=== PATIENT | female | born 1965 | race Caucasian/White ===

== ENCOUNTER → 2017-08-30 | Outpatient (CLI) | payer MEDICARE, SELFPAY | PROVIDERS: Visit Provider Anesthesiology | DX: M54.2 Cervicalgia (principal); M54.6 Pain in thoracic spine; M54.5 Low back pain | CPT/HCPCS: 72125; 72128; 72131 ==

== ENCOUNTER 2017-09-09 07:44 | Day surgery (SDC) | payer MEDICARE, SELFPAY ==
[2017-09-09] VITALS (9 sets, daily range): BP systolic 132–160; BP diastolic 78–101; PULSE 73–91; RESP 18–20; TEMP 36.3–36.8; O2SAT 95–97; BMI 41.8
--- NOTE | 2017-09-09 09:33 | HMH.PMPROC ---
- Procedure Date: 09/09/17 Time: 09:33 Anesthesiologist:: Adrian Mayfield MD Complications:: None Pre-procedure Diagnosis:: Degenerative disc disease of lumbar spine with lumbar radiculopathy symptoms Degenerative disc disease of cervical spinal cervical radiculopathy symptoms Post-procedure Diagnosis:: Same Indications for Procedure:: This patient is a pleasant 52-year-old white female who we are seeing for low back pain with radiation down her right leg and into her right thigh. She has failed all conservative therapy including injections, physical therapy and oral medications. She was previously treated by Dr. Riddle with injections. She has transferred care to us as it is closer to home. She has a successful neuropsychological evaluation. She has failed all conservative therapy. We have talked to her about intrathecal therapy. I have answered all questions and explained the risks and benefits. She is been off of oral narcotics for couple months. She presents for intrathecal pump trial today. Procedure Details:: Pain pump trial Informed consent was obtained and the risk and benefits of the procedure was explained to the patient. The patient was taken to the procedure room and placed prone on the procedure table. Patient was prepped and draped in sterile fashion. C-arm fluoroscopy was used to view the lumbar spine. The skin and subcutaneous tissues were anesthetized using lidocaine. I placed a 18-gauge spinal needle into the L4-5 interspace and advanced until clear CSF was obtained. After this intrathecal catheter was inserted and advanced very easily to the T10 vertebral body. The needle was withdrawn. We were able to freely withdraw clear CSF through the catheter. The catheter was secured in place and the patient was taken to recovery in stable condition. Patient tolerated the procedure well with no complications. After obtaining one set of vitals patient was bolused with 25 mcg of intrathecal fentanyl single shot. We reevaluated the patient after 30 minutes to 1 hour. She was also reassessed by physical therapy. Patient reported 60-70% relief in pain symptoms. She is also much more active. She had good relief of her low back pain. She did still have some neck pain however. She wants to proceed with permanent placement. Intrathecal catheter was removed intact Band-Aid was placed. The patient was discharged home neurologically intact and with good relief of pain symptoms. She was also reevaluated by physical therapy with significant improvement in flexion and extension. Pain score down to a 4 out of 10. Plan and Disposition:: We will follow-up with this patient next week. We will reevaluate her symptoms and talk about permanent placement of intrathecal pain pump.
--- NOTE | 2017-09-09 09:58 | PC.NURSE ---
pt dosed per Dr. Mayfield at 0951 for pain pump
--- NOTE | 2017-09-09 10:56 | PC.NURSE ---
PHYSICAL THERAPY AT BEDSIDE FOR ONE HOUR POST EVAL AFTER MEDICATION DOSING
--- NOTE | 2017-09-09 11:10 | PC.NURSE ---
AT BEDSIDE TO EVALUATE PT POST 1 HOUR DOSING, PT IN STABLE CONDITION. BENADRYL GIVEN FOR ITCHING, PT STATES ITCHING HAS DECREASED AND PAIN IS GETTING BETTER. DENIES ANY FURTHER NEEDS AT THIS TIME
--- NOTE | 2017-09-09 11:38 | PC.NURSE ---
EPIDURAL CATHETER REMOVED PER Karla MUÑOZ RN PER DR. BLANK REQUEST. SITE C/D/I, BANDAID APPLIED. VSS, FAMILY AT BEDSIDE FOR DISCHARGE
== END 2017-09-09 11:30 | disposition home or self-care (01) ==
LOC: SC.PAINP 07:47
PROVIDERS: Family Provider Family Medicine Geriatric Medicine; PCP Family Medicine Geriatric Medicine; Visit Provider Anesthesiology
DX: M51.16 Intervertebral disc disorders with radiculopathy, lumbar region (principal); M50.10 Cervical disc disorder with radiculopathy, unspecified cervical region
CPT/HCPCS: 62350

== ENCOUNTER → 2017-09-26 08:34 | Outpatient (POV) | payer MEDICARE, SELFPAY ==
[2017-09-26 09:25] VITALS: BP 158/78; PULSE 80; RESP 20; TEMP 36.7; O2SAT 93; BMI 92.2
--- NOTE | 2017-09-26 09:44 | HMH.PAINSOAP ---
[facility] Pain Management SOAP Note Subjective:: This patient is a pleasant 52-year-old white female who we are seeing for low back pain and neck pain with previous ACDF and degenerative disc disease of lumbar spine with lumbar radiculopathy symptoms. She underwent intrathecal pump trial which did not give her adequate pain relief. This was unsuccessful pump trial. She did get temporary relief however she was still having some increasing neck pain and some significant low back pain. She may have only been 60% better in her low back but still had significant neck pain. She has not had recent imaging. We will get an MRI of the cervical spine, thoracic spine and lumbar spine for neck pain, mid back pain and low back pain with radicular symptoms. We will also start her on Percocet 5 mg 1 tablet 3 times a day. Her Chandra has been appropriate. We will get a urine drug screen today. Objective:: Heart and oriented ?3 in no acute distress. Tenderness overlines Manny and lumbar spine. Motor strength of the upper and lower extremities is 5/5. There is no gross sensory deficit. Assessment:: Postlaminectomy syndrome of the cervical spine with ACDF of the cervical spine and degenerative disc disease of lumbar spine with lumbar radiculopathy symptoms. Plan:: We will get an MRI of the cervical spine, thoracic spine and lumbar spine for neck pain, mid back pain and low back pain with radicular symptoms. We will also start her on Percocet 5 mg 1 tablet 3 times a day. Her Chandra has been appropriate. We will get a urine drug screen today.
[2017-09-26 11:56] LABS: Amphetamine/Metha Screen,Urine Negative ng/mL (<1000); Barbiturates Screen,Urine Negative ng/mL (<200); Benzodiazepines Screen,Urine Negative ng/mL (200); Cannabinoid Screen,Urine Negative ng/mL (<50); Cocaine Screen,Urine Negative ng/g (<300); Methadone Screen,Urine Negative ng/mL (<300); Opiate Screen,Urine Negative ng/mL (<300); Phencyclidine Screen,Urine Negative ng/mL (<25)
[2017-10-04 10:55] LABS: Opiates Negative (Cutoff=100)
== END ==
PROVIDERS: Family Provider Family Medicine Geriatric Medicine; PCP Family Medicine Geriatric Medicine; Visit Provider Anesthesiology
DX: M96.1 Postlaminectomy syndrome, not elsewhere classified (principal); Z79.899 Other long term (current) drug therapy
CPT/HCPCS: 80305; 80361; 99212; G0480

== ENCOUNTER → 2017-10-25 10:33 | Outpatient (POV) | payer MEDICARE, SELFPAY ==
[2017-10-25 10:45] VITALS: BP 198/94; PULSE 91; RESP 20; TEMP 36.1; O2SAT 95; BMI 43.2
--- NOTE | 2017-10-25 12:21 | HMH.PAINSOAP ---
[facility] Pain Management SOAP Note Subjective:: She is a pleasant 52-year-old white female who presents today to discuss her pain. Patient has had a previous previous ACDF of the neck. Patient is having pain all the way from her neck to her back radiating down into her legs. Patient is seen Dr. Stewart in the past and had two stimulators. Most recently had a intrathecal pain pump trial which she stated did not give her much relief. Patient has been on medication in the past she states that this does not help either she states that she does not want to be on medication. Patient states that her activity is limited at home she just walks from her bed to her chair. Patient also states that she does not have much water intake but she eats a bag of ice every day. Patient states she has not been to her PCP for routine labs in a while. Patient does have thyroid problems as well but her levels have been monitored. Had physical therapy in the past however she has never tried hydrotherapy. Patient has also tried and failed injective therapies. ROS General: no recent weight change, no fever Respiratory: no cough, no shortness of air, no recurring pulmonary infections Cardiovascular/Peripheral Vascular: No chest pain, No palpitations, no edema, no shortness of breath. Gastrointestinal: no incontinence, normal bowel movements reported Genitourinary: no incontinence Musculoskeletal: Neck pain, thoracic pain, low back pain, leg Psychiatric: normal mood/ affect Neurological: Intermittent weakness in extremities., [denies balance issues] Objective:: Physical Exam General: Alert and oriented x3, no acute distress, pleasant and cooperative, morbidly obese Lungs: Resps E/U, Symmetrical chest expansion, Musculoskeletal: Flexion and extension of lumbar, thoracic, and cervical spine somewhat guarded secondary to pain, deep tendon reflexes normal, strength in upper and lower extremities [5/5], [abnormal gait noted] Neurological: speech clear, location manager equal, no gross sensory deficits Assessment:: Degenerative disc disease of the cervical spine, degenerative disc disease of the thoracic spine, generative disc disease of the lumbar spine, radiculopathy, cervical radiculopathy Plan:: The patient and I had a long discussion about taking a more holistic approach to her pain. We discussed the need for her to go to her primary care provider. I would like her to get some routine blood work I have concerns about her being potentially anemic, her thyroid levels not being well controlled, and her vitamin levels as well. I talked to the patient about the importance of movement. We discussed hydrotherapy as an option I will order this. If she cannot get approved through her insurance for hydrotherapy I discussed that she needs to be a lot walking at least 5 minutes a day several times a day.. Also discussed nutritional consult with the patient. I told the patient we would not be increasing her Percocet today. I will increase her gabapentin from 300 mg 1 p.o. 3 times daily to 600 mg 1 p.o. 3 times daily patient states she is not having any side effects from any of the medications. I will also call her in Flexeril 10 mg [address] Mayfield is reviewed her chart and agrees with my plan of care. Patient's SUZETTE #[id number] reviewed and appropriate. She will go for urine drug screen today. She has been appropriate in the past we will continue to monitor this. I will see her back in a month to discuss what her primary care has found in her blood work. Patient has been prescribed a controlled substance after being counseled on the medication, medication safety, and possible side effects. SUZETTE report has been obtained and reviewed prior to prescription and found to be appropriate. Opioid contract was reviewed and signed by the patient, and that they have agreed to all of the terms set forth by our compliance program. This note was dictated using
--- NOTE | 2017-10-25 12:28 | P.CONS_ITS ---
[facility] Pain Management SOAP Note Subjective:: She is a pleasant 52-year-old white female who presents today to discuss her pain. Patient has had a previous previous ACDF of the neck. Patient is having pain all the way from her neck to her back radiating down into her legs. Patient is seen Dr. Stewart in the past and had two stimulators. Most recently had a intrathecal pain pump trial which she stated did not give her much relief. Patient has been on medication in the past she states that this does not help either she states that she does not want to be on medication. Patient states that her activity is limited at home she just walks from her bed to her chair. Patient also states that she does not have much water intake but she eats a bag of ice every day. Patient states she has not been to her PCP for routine labs in a while. Patient does have thyroid problems as well but her levels have been monitored. Had physical therapy in the past however she has never tried hydrotherapy. Patient has also tried and failed injective therapies. ROS General: no recent weight change, no fever Respiratory: no cough, no shortness of air, no recurring pulmonary infections Cardiovascular/Peripheral Vascular: No chest pain, No palpitations, no edema, no shortness of breath. Gastrointestinal: no incontinence, normal bowel movements reported Genitourinary: no incontinence Musculoskeletal: Neck pain, thoracic pain, low back pain, leg Psychiatric: normal mood/ affect Neurological: Intermittent weakness in extremities., [denies balance issues] Objective:: Physical Exam General: Alert and oriented x3, no acute distress, pleasant and cooperative, morbidly obese Lungs: Resps E/U, Symmetrical chest expansion, Musculoskeletal: Flexion and extension of lumbar, thoracic, and cervical spine somewhat guarded secondary to pain, deep tendon reflexes normal, strength in upper and lower extremities [5/5], [abnormal gait noted] Neurological: speech clear, capacitor repairer equal, no gross sensory deficits Assessment:: Degenerative disc disease of the cervical spine, degenerative disc disease of the thoracic spine, generative disc disease of the lumbar spine, radiculopathy, cervical radiculopathy Plan:: The patient and I had a long discussion about taking a more holistic approach to her pain. We discussed the need for her to go to her primary care provider. I would like her to get some routine blood work I have concerns about her being potentially anemic, her thyroid levels not being well controlled, and her vitamin levels as well. I talked to the patient about the importance of movement. We discussed hydrotherapy as an option I will order this. If she cannot get approved through her insurance for hydrotherapy I discussed that she needs to be a lot walking at least 5 minutes a day several times a day.. Also discussed nutritional consult with the patient. I told the patient we would not be increasing her Percocet today. I will increase her gabapentin from 300 mg 1 p.o. 3 times daily to 600 mg 1 p.o. 3 times daily patient states she is not having any side effects from any of the medications. I will also call her in Flexeril 10 mg [address] Mayfield is reviewed her chart and agrees with my plan of care. Patient's SUZETTE #[id number] reviewed and appropriate. She will go for urine drug screen today. She has been appropriate in the past we will continue to monitor this. I will see her back in a month to discuss what her primary care has found in her blood work. Patient has been prescribed a controlled substance after being counseled on the medication, medication safety, and
[2017-10-25 13:02] LABS: Amphetamine/Metha Screen,Urine Negative ng/mL (<1000); Barbiturates Screen,Urine Negative ng/mL (<200); Benzodiazepines Screen,Urine Negative ng/mL (200); Cannabinoid Screen,Urine Negative ng/mL (<50); Cocaine Screen,Urine Negative ng/g (<300); Methadone Screen,Urine Negative ng/mL (<300); Opiate Screen,Urine Positive ng/mL (<300); Phencyclidine Screen,Urine Negative ng/mL (<25)
--- NOTE | 2017-10-26 09:35 | PC.PHONENOTE ---
10/25/17-called in Rx for Gabapentin 600mg TID with 2 refills and Flexeril 10mg TID with 2 refills to pt pharmacy per provider order.
[2017-10-31 13:09] LABS: Oxycodone (GC/MS) 2100 ng/mL (Cutoff=100)
[2017-11-01 06:27] LABS: Opiates Negative (Cutoff=100); Oxymorphone (GC/MS) 1410 ng/mL (Cutoff=100)
== END ==
PROVIDERS: Family Provider Family Medicine Geriatric Medicine; PCP Family Medicine Geriatric Medicine; Visit Provider Clinical Nurse Specialist Family Health
DX: M54.16 Radiculopathy, lumbar region (principal); M54.14 Radiculopathy, thoracic region; M54.12 Radiculopathy, cervical region; Z79.899 Other long term (current) drug therapy
CPT/HCPCS: 80305; 80361; 80365; 99212; G0480

== ENCOUNTER → 2017-11-21 08:46 | Outpatient (POV) | payer MEDICARE, SELFPAY ==
[2017-11-21 09:25] VITALS: BP 180/87; PULSE 95; RESP 24; O2SAT 96; BMI 43.2
--- NOTE | 2017-11-21 10:23 | HMH.PAINSOAP ---
[facility] Pain Management SOAP Note Subjective:: This patient is a pleasant 52-year-old white female who we are treating for neck pain with previous ACDF, mid back pain and degenerative disc disease of lumbar spine with lumbar radiculopathy symptoms. She had an intrathecal fentanyl trial which gave her some relief of her low back pain however she did not get much relief of her neck pain or mid back pain. She is also had previous spinal cord stimulator which had a fractured lead and she did not give any long-term benefit from this. We recently saw her and recommended that she go to her primary care provider to get some labs. She does have a thyroid abnormality and vitamin D is very low according to her recent labs evaluation. She is to follow-up with Dr. felciiano next week. Currently she is on gabapentin 600 mg 3 times a day, Percocet 5 mg 3 times a day and Flexeril 10 mg 3 times a day. She is doing okay on these medications. Her Chandra and urine drug screen are all appropriate. Kaspar #[id number]. I have talked to her about other options including possibly using ziconotide intrathecally which may gave her relief of neck pain and low back pain. Ziconotide may have better spread through the intrathecal space and fentanyl. I believe she would be a good candidate for a ziconotide pump trial we will seek approval for this. Objective:: Alert and oriented ?3 in no acute distress. She does have an antalgic gait. Motor strength of the lower extremities is 5/5. There is no gross sensory deficit. She does have tenderness over the cervical spine and tenderness over lower lumbar spine. Decreased range of motion of cervical spine and lumbar spine Assessment:: Degenerative disc disease of the cervical spine with previous ACDF and cervical radiculopathy symptoms. Degenerative disc disease of lumbar spine with lumbar radiculopathy symptoms. Plan:: This patient has failed all conservative therapy including spinal cord stimulation, previous surgery and injections. She got limited relief with intrathecal fentanyl trial. Fentanyl is lipophilic and did not spread to the cervical spine to give her any relief. I do believe she may be a candidate for intrathecal ziconotide. We will seek approval for intrathecal ziconotide pump trial to see if this will capture neck pain and low back pain. We will plan on intrathecal ziconotide pump trial at 5 mcg single shot when approved. We will also refill her Percocet 5 mg 1 tablet 3 times a day, Flexeril 10 mg 3 times a day and gabapentin 600 mg 3 times a day. We will give HER-2 months worth of prescriptions.
--- NOTE | 2017-11-21 10:26 | P.CONS_ITS ---
[facility] Pain Management SOAP Note Subjective:: This patient is a pleasant 52-year-old white female who we are treating for neck pain with previous ACDF, mid back pain and degenerative disc disease of lumbar spine with lumbar radiculopathy symptoms. She had an intrathecal fentanyl trial which gave her some relief of her low back pain however she did not get much relief of her neck pain or mid back pain. She is also had previous spinal cord stimulator which had a fractured lead and she did not give any long-term benefit from this. We recently saw her and recommended that she go to her primary care provider to get some labs. She does have a thyroid abnormality and vitamin D is very low according to her recent labs evaluation. She is to follow-up with Dr. feliciano next week. Currently she is on gabapentin 600 mg 3 times a day, Percocet 5 mg 3 times a day and Flexeril 10 mg 3 times a day. She is doing okay on these medications. Her Chandra and urine drug screen are all appropriate. Kaspar #[id number]. I have talked to her about other options including possibly using ziconotide intrathecally which may gave her relief of neck pain and low back pain. Ziconotide may have better spread through the intrathecal space and fentanyl. I believe she would be a good candidate for a ziconotide pump trial we will seek approval for this. Objective:: Alert and oriented ?3 in no acute distress. She does have an antalgic gait. Motor strength of the lower extremities is 5/5. There is no gross sensory deficit. She does have tenderness over the cervical spine and tenderness over lower lumbar spine. Decreased range of motion of cervical spine and lumbar spine Assessment:: Degenerative disc disease of the cervical spine with previous ACDF and cervical radiculopathy symptoms. Degenerative disc disease of lumbar spine with lumbar radiculopathy symptoms. Plan:: This patient has failed all conservative therapy including spinal cord stimulation, previous surgery and injections. She got limited relief with intrathecal fentanyl trial. Fentanyl is lipophilic and did not spread to the cervical spine to give her any relief. I do believe she may be a candidate for intrathecal ziconotide. We will seek approval for intrathecal ziconotide pump trial to see if this will capture neck pain and low back pain. We will plan on intrathecal ziconotide pump trial at 5 mcg single shot when approved. We will also refill her Percocet 5 mg 1 tablet 3 times a day, Flexeril 10 mg 3 times a day and gabapentin 600 mg 3 times a day. We will give HER-2 months worth of prescriptions.
[2017-11-21 10:27] LABS: Amphetamine/Metha Screen,Urine Negative ng/mL (<1000); Barbiturates Screen,Urine Negative ng/mL (<200); Benzodiazepines Screen,Urine Negative ng/mL (200); Cannabinoid Screen,Urine Negative ng/mL (<50); Cocaine Screen,Urine Negative ng/g (<300); Methadone Screen,Urine Negative ng/mL (<300); Opiate Screen,Urine Negative ng/mL (<300); Phencyclidine Screen,Urine Negative ng/mL (<25)
[2018-02-14 11:36] LABS: Opiates NEGATIVE
[2018-02-14 11:40] LABS: Oxycodone (GC/MS) 449
[2018-02-14 11:44] LABS: Oxymorphone (GC/MS) 585
== END ==
PROVIDERS: Family Provider Family Medicine Geriatric Medicine; PCP Family Medicine Geriatric Medicine; Visit Provider Anesthesiology
DX: M54.16 Radiculopathy, lumbar region (principal); M54.12 Radiculopathy, cervical region
CPT/HCPCS: 99212; 80305; 80361; 80365; G0480

== ENCOUNTER → 2018-01-10 10:56 | Outpatient (POV) | payer MEDICARE, SELFPAY ==
[2018-01-10 11:51] VITALS: BP 155/81; PULSE 84; RESP 20; O2SAT 99; BMI 42.4
--- NOTE | 2018-01-10 12:44 | HMH.PAINSOAP ---
[facility] Pain Management SOAP Note Subjective:: Patient is a pleasant 52-year-old white female who presents today for follow-up after recent denial of intrathecal pain pump trial with [employer]. Patient did have a intrathecal pain pump trial however she did not get much coverage of her neck and back pain that she would have liked. Patient's insurance denied trial with Prialt. Patient and I had a long discussion about neuro stimulation. Did have a neurostimulator from [employer] 5 years ago. Patient had a piece of the catheter break off. Patient and I had a long discussion about Nuvectra and the advances in stimulation. Patient would like to proceed with a trial for both cervical and lumbar pain coverage. Patient her pain a 6 out of 10 today. Patient is being managed on Percocet 5 mg 1 3 times daily. ROS General: no recent weight change, no fever, no sleep disturbances Respiratory: no cough, no shortness of air, no recurring pulmonary infections Cardiovascular/Peripheral Vascular: No chest pain, No palpitations, no edema, no shortness of breath. Gastrointestinal: no incontinence, normal bowel movements reported Genitourinary: no incontinence Musculoskeletal: Neck pain, bilateral arm pain, back pain, bilateral leg pain Psychiatric: normal mood/ affect, Neurological: [denies weakness in extremities], [denies balance issues] Objective:: Physical Exam General: Alert and oriented x3, no acute distress, pleasant and cooperative, [on room air] Lungs: Resps E/U, Symmetrical chest expansion, Eyes: PERRL Musculoskeletal: Flexion and extension of lumbar and cervical spine somewhat guarded secondary to pain, deep tendon reflexes normal, strength in upper and lower extremities [5/5], [abnormal gait noted] Neurological: speech clear, operational risk consultant equal, no gross sensory deficits Assessment:: Degenerative disc disease of the cervical spine with previous ACDF and cervical radiculopathy symptoms. Degenerative disc disease of lumbar spine with lumbar radiculopathy symptoms Plan:: We will ask for insurance approval for a Nuvectra spinal cord stimulator trial in order to get coverage of both the cervical and lumbar spine. Patient has tried and failed all conservative therapy including previous surgery, injections, intrathecal fentanyl trial, medications, physical therapy. I will follow-up with this patient after her trial. Patient is not on any anticoagulation therapy. This note was dictated using voice recognition software and may contain errors or omissions
--- NOTE | 2018-01-10 12:47 | P.CONS_ITS ---
[facility] Pain Management SOAP Note Subjective:: Patient is a pleasant 52-year-old white female who presents today for follow-up after recent denial of intrathecal pain pump trial with [employer]. Patient did have a intrathecal pain pump trial however she did not get much coverage of her neck and back pain that she would have liked. Patient's insurance denied trial with Prialt. Patient and I had a long discussion about neuro stimulation. Did have a neurostimulator from [employer] 5 years ago. Patient had a piece of the catheter break off. Patient and I had a long discussion about Nuvectra and the advances in stimulation. Patient would like to proceed with a trial for both cervical and lumbar pain coverage. Patient her pain a 6 out of 10 today. Patient is being managed on Percocet 5 mg 1 3 times daily. ROS General: no recent weight change, no fever, no sleep disturbances Respiratory: no cough, no shortness of air, no recurring pulmonary infections Cardiovascular/Peripheral Vascular: No chest pain, No palpitations, no edema, no shortness of breath. Gastrointestinal: no incontinence, normal bowel movements reported Genitourinary: no incontinence Musculoskeletal: Neck pain, bilateral arm pain, back pain, bilateral leg pain Psychiatric: normal mood/ affect, Neurological: [denies weakness in extremities], [denies balance issues] Objective:: Physical Exam General: Alert and oriented x3, no acute distress, pleasant and cooperative, [ on room air] Lungs: Resps E/U, Symmetrical chest expansion, Eyes: PERRL Musculoskeletal: Flexion and extension of lumbar and cervical spine somewhat guarded secondary to pain, deep tendon reflexes normal, strength in upper and lower extremities [5/5], [abnormal gait noted] Neurological: speech clear, chicken cutter equal, no gross sensory deficits Assessment:: Degenerative disc disease of the cervical spine with previous ACDF and cervical radiculopathy symptoms. Degenerative disc disease of lumbar spine with lumbar radiculopathy symptoms Plan:: We will ask for insurance approval for a Nuvectra spinal cord stimulator trial in order to get coverage of both the cervical and lumbar spine. Patient has tried and failed all conservative therapy including previous surgery, injections , intrathecal fentanyl trial, medications, physical therapy. I will follow-up with this patient after her trial. Patient is not on any anticoagulation therapy. This note was dictated using voice recognition software and may contain errors or omissions
== END ==
PROVIDERS: Family Provider Family Medicine Geriatric Medicine; PCP Family Medicine Geriatric Medicine; Visit Provider Clinical Nurse Specialist Family Health
DX: M54.12 Radiculopathy, cervical region (principal); M54.16 Radiculopathy, lumbar region
CPT/HCPCS: 99212

== ENCOUNTER → 2018-02-07 11:48 | Outpatient (POV) | payer MEDICARE, SELFPAY ==
[2018-02-07 12:02] VITALS: BP 152/87; PULSE 81; RESP 18; O2SAT 99; BMI 42.3
--- NOTE | 2018-02-07 12:19 | HMH.PAINSOAP ---
[facility] Pain Management SOAP Note Subjective:: Patient is a pleasant 52-year-old white female who presents today for a discussion about her neurostimulator trial on Tuesday. Patient wanted to discuss some question she had about the coverage and about the longevity of the therapy. Patient and I had a long discussion and I answered all of her questions. Patient states her pain is an 8 out of 10 today. Patient states that she was unable to picker tender her Percocet 5 mg 1 p.o. 3 times daily. Patient's SUZETTE #[id number] reviewed and appropriate. ROS General: no recent weight change, no fever, no sleep disturbances Respiratory: no cough, no shortness of air, no recurring pulmonary infections Cardiovascular/Peripheral Vascular: No chest pain, No palpitations, no edema, no shortness of breath. Gastrointestinal: no incontinence, normal bowel movements reported Genitourinary: no incontinence Musculoskeletal: Neck pain, bilateral arm pain, back pain, bilateral leg pain Psychiatric: normal mood/ affect Neurological: [denies weakness in extremities], [denies balance issues] Objective:: Physical Exam General: Alert and oriented x3, no acute distress, pleasant and cooperative, [on room air] Lungs: Resps E/U, Symmetrical chest expansion, Eyes: PERRL Musculoskeletal: Flexion and extension of cervical and lumbar spine somewhat guarded secondary to pain, deep tendon reflexes normal, strength in upper and lower extremities [5/5], [abnormal gait noted] Neurological: speech clear, senior biostatistician/group leader equal, no gross sensory deficits Assessment:: Degenerative disc disease of the cervical spine with previous ACDF and cervical radiculopathy symptoms. Degenerative disc disease of the lumbar spine with lumbar radiculopathy symptoms Plan:: The patient and I discussed her procedure on Tuesday. Patient is ready to continue. I will follow-up with her after her trial leads have been placed. This note was dictated using voice recognition software and may contain errors or omissions
[2018-02-07 18:52] LABS: Amphetamine/Metha Screen,Urine Negative ng/mL (<1000); Barbiturates Screen,Urine Negative ng/mL (<200); Benzodiazepines Screen,Urine Negative ng/mL (200); Cannabinoid Screen,Urine Negative ng/mL (<50); Cocaine Screen,Urine Negative ng/g (<300); Methadone Screen,Urine Negative ng/mL (<300); Opiate Screen,Urine Negative ng/mL (<300); Phencyclidine Screen,Urine Negative ng/mL (<25)
[2018-02-14 10:08] LABS: Opiates Negative (Cutoff=100)
== END ==
PROVIDERS: Family Provider Family Medicine Geriatric Medicine; PCP Family Medicine Geriatric Medicine; Visit Provider Clinical Nurse Specialist Family Health
DX: M54.12 Radiculopathy, cervical region (principal); Z79.891 Long term (current) use of opiate analgesic; M54.16 Radiculopathy, lumbar region
CPT/HCPCS: 80305; 80361; 80365; 99212; G0480

== ENCOUNTER → 2018-02-17 09:48 | Outpatient (POV) | payer MEDICARE, SELFPAY ==
[2018-02-17 09:56] VITALS: BP 132/65; PULSE 108; RESP 18; BMI 42.3
--- NOTE | 2018-02-17 11:40 | P.CONS_ITS ---
[facility] Pain Management SOAP Note Subjective:: This patient is a pleasant 49-year-old white female who we are treating for neck pain and low back pain with previous ACDF and postlaminectomy syndrome of the cervical spine with degenerative disc disease of lumbar spine and lumbar radiculopathy symptoms. This patient underwent a Nuvectra stimulator trial with a lead in the cervical region at C5-C6-C7 and a lead in the thoracic region at T7-T8-T9. Patient had good coverage of low back and legs. Patient also had good coverage of mid back however did not get adequate coverage of her neck. With difficulty of placing leads in the cervical region I do believe that surgical paddle lead placement would be ideal for permanent. Objective:: Alert and oriented ?3 no acute distress. Leads were pulled out intact with no signs of redness, skin irritation or infection. Patient does have an antalgic gait. She does have tenderness over the cervical spine and lumbar spine. Motor strength of the upper and lower extremities is 5/5. There is no gross sensory deficit. Assessment:: Degenerative disc disease of the cervical spine with previous ACDF and cervical radiculopathy symptoms. Degenerative disc disease of lumbar spine with lumbar radiculopathy symptoms. Plan:: We will refer her to Dr. Lane for surgical paddle lead placement of a Nuvectra stimulator system. One lead would be in the cervical region at C5-6. And one lead would be in the thoracic region at T8-T9.
--- NOTE | 2018-02-23 10:42 | PC.PHONENOTE ---
SPOKE WITH PT'S DAUGHTER, KRISTI. GAVE DR HUDSON DEL RIO'S ADDRESS AND PHONE NUMBER WITH APPOINTMENT FOR CONSULTATION FOR PADDLE LEADS AND STIM IMPLANT FOR March AT 1PM. INSTRUCTED HER TO HAVE [facility] CALL OFFICE IF SHE HAS ANY QUESTIONS. V/U
== END ==
PROVIDERS: Family Provider Family Medicine Geriatric Medicine; PCP Family Medicine Geriatric Medicine; Visit Provider Anesthesiology
DX: M54.12 Radiculopathy, cervical region (principal); M54.16 Radiculopathy, lumbar region
CPT/HCPCS: 99212

== ENCOUNTER → 2018-03-27 14:39 | Outpatient (POV) | payer MEDICARE, SELFPAY ==
[2018-03-27 15:07] VITALS: BP 155/79; PULSE 93; RESP 18; O2SAT 98; BMI 43.0
--- NOTE | 2018-03-27 15:18 | HMH.PAINSOAP ---
[facility] Pain Management SOAP Note Subjective:: This patient is a 52-year-old white female who presents today for follow-up. Patient had neurostimulator trial in which she reported good relief however when she is to Dr. Lane she stated she did not get any coverage of her neck as far as pain relief. Since her last visit patient has filled a narcotic prescription from an ear nose and throat doctor. Patient did not notify our office. Patient and I discussed that this is a breech of her contract. Patient Kaspar #[id number] reviewed. I discussed with the patient that we have exhausted our options along with this free to narcotic contract that we would only be giving her 1 month of medication and she will return to her primary care physician. Rates her pain a 6 out of 10 today. ROS General: no recent weight change, no fever, no sleep disturbances Respiratory: no cough, no shortness of air, no recurring pulmonary infections Cardiovascular/Peripheral Vascular: No chest pain, No palpitations, no edema, no shortness of breath. Gastrointestinal: no incontinence, normal bowel movements reported Genitourinary: no incontinence Musculoskeletal: Neck pain, back pain Psychiatric: normal mood/ affect Neurological: [denies weakness in extremities], [denies balance issues] Objective:: Physical Exam General: Morbidly obese, alert and oriented x3, no acute distress, pleasant and cooperative, [on room air] Lungs: Resps E/U, Symmetrical chest expansion, Eyes: PERRL Musculoskeletal: Flexion and extension of cervical and lumbar spine somewhat guarded secondary to pain, deep tendon reflexes normal, strength in upper and lower extremities [5/5], [abnormal gait noted] Neurological: speech clear, roll forming machine set up operator equal, no gross sensory deficits Assessment:: Disc disease of the lumbar spine with lumbar radiculopathy and degenerative disc disease of the cervical spine with cervical radiculopathy, previous ACDF of the cervical spine Plan:: We will give her 1 month of Percocet 5 mg 1 p.o. 3 times daily. This will be the last prescription she will get from this office. We have exhausted treatment options at this point and there is been a breech of her narcotic contract. Will send this note to her primary care physician. Dr. Mayfield has reviewed this chart and agrees with this plan of care. This note was dictated using voice recognition software and may contain errors or omissions
--- NOTE | 2018-03-27 15:22 | P.CONS_ITS ---
[facility] Pain Management SOAP Note Subjective:: This patient is a 52-year-old white female who presents today for follow-up. Patient had neurostimulator trial in which she reported good relief however when she is to Dr. Lane she stated she did not get any coverage of her neck as far as pain relief. Since her last visit patient has filled a narcotic prescription from an ear nose and throat doctor. Patient did not notify our office. Patient and I discussed that this is a breech of her contract. Patient Kaspar #[id number] reviewed. I discussed with the patient that we have exhausted our options along with this free to narcotic contract that we would only be giving her 1 month of medication and she will return to her primary care physician. Rates her pain a 6 out of 10 today. ROS General: no recent weight change, no fever, no sleep disturbances Respiratory: no cough, no shortness of air, no recurring pulmonary infections Cardiovascular/Peripheral Vascular: No chest pain, No palpitations, no edema, no shortness of breath. Gastrointestinal: no incontinence, normal bowel movements reported Genitourinary: no incontinence Musculoskeletal: Neck pain, back pain Psychiatric: normal mood/ affect Neurological: [denies weakness in extremities], [denies balance issues] Objective:: Physical Exam General: Morbidly obese, alert and oriented x3, no acute distress, pleasant and cooperative, [on room air] Lungs: Resps E/U, Symmetrical chest expansion, Eyes: PERRL Musculoskeletal: Flexion and extension of cervical and lumbar spine somewhat guarded secondary to pain, deep tendon reflexes normal, strength in upper and lower extremities [5/5], [abnormal gait noted] Neurological: speech clear, bag repairer equal, no gross sensory deficits Assessment:: Disc disease of the lumbar spine with lumbar radiculopathy and degenerative disc disease of the cervical spine with cervical radiculopathy, previous ACDF of the cervical spine Plan:: We will give her 1 month of Percocet 5 mg 1 p.o. 3 times daily. This will be the last prescription she will get from this office. We have exhausted treatment options at this point and there is been a breech of her narcotic contract. Will send this note to her primary care physician. Dr. Mayfield has reviewed this chart and agrees with this plan of care. This note was dictated using voice recognition software and may contain errors or omissions
== END ==
PROVIDERS: Family Provider Family Medicine Geriatric Medicine; PCP Family Medicine Geriatric Medicine; Visit Provider Clinical Nurse Specialist Family Health
DX: M54.16 Radiculopathy, lumbar region (principal)
CPT/HCPCS: 99212

== ENCOUNTER → 2018-08-11 11:39 | Outpatient (CLI) | payer MEDICARE, SELFPAY ==
[2018-08-11 13:57] LABS: Basophils # 0.1 K/mm3 (0-0.2); Basophils % 0.5 % (0.1-2.0); Eosinophils # 0.5 K/mm3 (0.0-0.4); Eosinophils % 3.7 % (0.1-12.0); Hematocrit 30.7 % (37.0-47.0); Hemoglobin 8.4 g/dL (12.2-16.2); Lymphocytes # 2.9 K/mm3 (0.7-4.5); Lymphocytes % 23.2 % (10-50); Mean Corpuscular HGB Conc 27.3 g/dL (31.8-35.4); Mean Corpuscular Hemoglobin 18.8 pg (27.0-31.2); Mean Corpuscular Volume 68.9 fl (81-99); Mean Platelet Volume 7.8 fl (7.4-10.4); Monocytes # 0.6 K/mm3 (0.1-1.0); Monocytes % 4.7 % (1.7-9.3); Neutrophils # 8.6 K/mm3 (1.8-7.8); Neutrophils % 67.9 % (37.0-80.0); Platelet Count 439 K/mm3 (142-424); Red Blood Count 4.45 M/mm3 (4.20-5.40); Red Cell Distribution Width 18.8 % (11.5-17.5); White Blood Count 12.7 K/mm3 (4.8-10.8)
[2018-08-11 14:25] LABS: Hemoglobin A1C 8.6 % (0.0-7.0)
[2018-08-11 14:46] LABS: Alanine Aminotransferase 50 U/L (12-78); Albumin Level 3.2 gm/dL (3.4-5.0); Albumin/Globulin Ratio 0.7 (1.1-1.8); Alkaline Phosphatase 168 U/L (46-116); Anion Gap 14.1 mEq/L (5-15); Aspartate Amino Transferase 60 U/L (15-37); Bilirubin,Total 0.3 mg/dL (0.2-1.0); Blood Urea Nitrogen 7 mg/dL (7-18); C-Reactive Protein 1.3 mg/L (0.0-0.9); Calcium 8.9 mg/dL (8.5-10.1); Carbon Dioxide 27 mmol/L (21.0-32.0); Chloride 94 mmol/L (98-107); Cholesterol 266 mg/dL (140-200); Creatinine,Serum 0.84 mg/dL (0.55-1.02); Estimated Glomerular Filt Rate 71 ml/min (>60); Ferritin 10 ng/mL (8-388); GFR (African American) 85 ML/MIN (>60); Globulin 4.8 gm/dl (1.3-3.2); Glucose 168 mg/dL (74-106); HDL Cholesterol 38 mg/dL (29-89); LDL Cholesterol 174 mg/dL (0-130); Potassium 4.1 mmoL/L (3.5-5.1); Sodium 131 mmol/L (136-145); Thyroid Stimulating Hormone 34.36 uIU/ml (0.358-3.740); Triglycerides 269 mg/dL (30-200); VLDL Cholesterol 54 mg/dL (0-40)
[2018-08-11 17:19] LABS: Erythrocyte Sedimentation Rate 79 mm/hr (0-30)
[2018-08-12 08:20] LABS: RA Latex Turbid. 10.9 IU/mL (0.0-13.9)
[2018-08-12 09:14] LABS: Iron 17 ug/dL (27-159); UIBC 526 ug/dL (131-425)
[2018-08-13 05:35] LABS: C-Peptide 7.1 ng/mL (1.1-4.4); Iron Saturation 3 % (15-55); Transferrin 437 mg/dL (200-370); Vitamin B12 606 pg/mL (232-1245); Vitamin D 25 Hydroxy 10.7 ng/mL (30.0-100.0)
[2018-08-13 11:42] LABS: Peripheral Smear Review Scanned Result
[2018-08-15 13:08] LABS: Antinuclear Antibodies, IFA Negative (.)
== END ==
PROVIDERS: PCP Physician Assistant; Visit Provider Physician Assistant
DX: D64.9 Anemia, unspecified (principal); E11.9 Type 2 diabetes mellitus without complications; E78.5 Hyperlipidemia, unspecified; I10 Essential (primary) hypertension; D50.9 Iron deficiency anemia, unspecified; E55.9 Vitamin D deficiency, unspecified; L40.9 Psoriasis, unspecified
CPT/HCPCS: 36415; 80053; 80061; 82607; 82652; 82728; 83036; 83540; 83550; 84443; 84466; 84681; 85025; 85060; 85651; 86038; 86140; 86431

== ENCOUNTER → 2019-05-29 09:18 | Outpatient (POV) | payer MEDICARE, SELFPAY ==
[2019-05-29 10:42] LABS: Basophils # 0.1 K/mm3 (0-0.2); Eosinophils # 0.3 K/mm3 (0.0-0.4); Eosinophils % 3.3 % (0.1-12.0); Hematocrit 48.5 % (37.0-47.0); Hemoglobin 15.5 g/dL (12.2-16.2); Lymphocytes # 2.1 K/mm3 (0.7-4.5); Lymphocytes % 24.3 % (10-50); Mean Corpuscular HGB Conc 31.9 g/dL (31.8-35.4); Mean Corpuscular Hemoglobin 30.5 pg (27.0-31.2); Mean Corpuscular Volume 95.5 fl (81-99); Mean Platelet Volume 8.6 fl (7.4-10.4); Monocytes # 0.4 K/mm3 (0.1-1.0); Monocytes % 4.4 % (1.7-9.3); Neutrophils # 5.8 K/mm3 (1.8-7.8); Neutrophils % 66.9 % (37.0-80.0); Platelet Count 278 K/mm3 (142-424); Red Blood Count 5.08 M/mm3 (4.20-5.40); Red Cell Distribution Width 14.7 % (11.5-17.5); White Blood Count 8.6 K/mm3 (4.8-10.8)
[2019-05-29 11:45] LABS: Alanine Aminotransferase 30 U/L (12-78); Albumin Level 3.4 gm/dL (3.4-5.0); Albumin/Globulin Ratio 0.8 (1.1-1.8); Alkaline Phosphatase 134 U/L (46-116); Anion Gap 15.5 mEq/L (5-15); Aspartate Amino Transferase 27 U/L (15-37); Bilirubin,Total 0.4 mg/dL (0.2-1.0); Blood Urea Nitrogen 7 mg/dL (7-18); Calcium 9.8 mg/dL (8.5-10.1); Carbon Dioxide 26 mmol/L (21.0-32.0); Chloride 103 mmol/L (98-107); Creatinine,Serum 0.63 mg/dL (0.55-1.02); Estimated Glomerular Filt Rate 98 ml/min (>60); GFR (African American) 119 ML/MIN (>60); Globulin 4.1 gm/dl (1.3-3.2); Glucose 143 mg/dL (74-106); Potassium 3.5 mmoL/L (3.5-5.1); Sodium 141 mmol/L (136-145); Total Protein,Serum 7.5 gm/dL (6.4-8.2)
[2019-05-30 07:18] LABS: Hep A Ab, IgM Negative (Negative); Hepatitis B Core Antibody IgM Negative (Negative); Hepatitis B Surface Antigen Negative (Negative)
[2019-05-30 10:50] LABS: Hepatitis C Antibody <0.1 s/co ratio (0.0-0.9)
[2019-06-02 13:48] LABS: QuantiFERON-TB Gold Plus Negative (Negative)
== END ==
PROVIDERS: PCP Dermatology; Visit Provider Dermatology
DX: L40.0 Psoriasis vulgaris (principal); Z79.899 Other long term (current) drug therapy; R10.9 Unspecified abdominal pain
CPT/HCPCS: 36415; 80053; 80074; 85025; 86480

== ENCOUNTER → 2019-10-16 08:27 | Outpatient (POV) | payer MEDICARE, SELFPAY | PROVIDERS: Visit Provider Dermatology | DX: Z00.00 Encounter for general adult medical examination without abnormal findings (principal) ==

== ENCOUNTER → 2019-10-30 11:28 | Outpatient (CLI) | payer MEDICARE, SELFPAY | PROVIDERS: Visit Provider Dermatology | DX: S61.0 Open wound of thumb without damage to nail (principal) | CPT/HCPCS: 87070; 87077; 87186; 87205 ==

== ENCOUNTER → 2020-03-11 12:56 | Outpatient (POV) | payer MEDICARE, SELFPAY | PROVIDERS: PCP Nurse Practitioner Family; Visit Provider Dermatology | DX: Z00.00 Encounter for general adult medical examination without abnormal findings (principal) ==

== ENCOUNTER → 2021-01-06 10:00 | Outpatient (CLI) | payer MEDICARE, SELFPAY ==
--- NOTE | 2021-01-06 10:03 | MM_ITS ---
PROCEDURE: MM DIG SCREENING MAMM BI W/CAD Digital Breast Tomosynthesis Included CLINICAL INDICATION: SCREENING COMPARISON: MG DMDBAV DIG MAMM-DX ALESSIA W/AVWS W/CAD from 04/18/2017 TECHNIQUE: Standard CC and MLO images and 3D Tomosynthesis was obtained. R2 CAD reviewed. FINDINGS: The breasts are composed of scattered fibroglandular tissue. No focal dominant mass lesions, suspicious calcification or architectural distortion is noted. Benign appearing calcifications are noted. Previously noted masslike lesions in the right breast are not visualized on the current study. Focal nodular appearing density in the right outer lower breast is again noted, demonstrates no significant interval change compared to the prior study. IMPRESSION: No suspicious findings benign findings.. BI-RAD Category: 2 Benign Finding(s) FOLLOW-UP: 1YR 1 Year Follow-up (A letter has been sent to the patient regarding results of the study.) Dictated by: Mya Beavers 01/12/2021 16:27 Mya Beavers in OV 01/12/2021 16:27
== END ==
PROVIDERS: PCP Nurse Practitioner Family; Visit Provider Nurse Practitioner Family
DX: Z12.31 Encounter for screening mammogram for malignant neoplasm of breast (principal)
CPT/HCPCS: 77063; 77067

== ENCOUNTER → 2021-05-19 10:07 | Outpatient (CLI) | payer MEDICARE, SELFPAY ==
[2021-05-19 11:02] LABS: Basophils # 0.1 K/mm3 (0-0.2); Eosinophils # 0.2 K/mm3 (0.0-0.4); Eosinophils % 2.6 % (0.1-12.0); Hematocrit 49.1 % (37.0-47.0); Hemoglobin 14.7 g/dL (12.2-16.2); Mean Corpuscular Hemoglobin 26.9 pg (27.0-31.2); Mean Corpuscular Volume 89.6 fl (81-99); Mean Platelet Volume 7.4 fl (7.4-10.4); Monocytes # 0.6 K/mm3 (0.1-1.0); Monocytes % 6.7 % (1.7-9.3); Neutrophils # 5.3 K/mm3 (1.8-7.8); Neutrophils % 57.6 % (37.0-80.0); Platelet Count 338 K/mm3 (142-424); Red Blood Count 5.48 M/mm3 (4.20-5.40); Red Cell Distribution Width 16.1 % (11.5-17.5); White Blood Count 9.2 K/mm3 (4.8-10.8)
[2021-05-19 12:16] LABS: Alanine Aminotransferase 16 U/L (12-78); Albumin Level 3.8 g/dl (3.5-5.0); Alkaline Phosphatase 127 U/L (38-126); Anion Gap 14.5 mEq/L (5-15); Aspartate Amino Transferase 28 U/L (14-36); Bilirubin,Total 0.2 mg/dl (0.2-1.3); Blood Urea Nitrogen 12 mg/dl (7-17); Carbon Dioxide 29 mmol/L (22.0-30.0); Chloride 102 mmol/L (98-107); Estimated Glomerular Filt Rate 74 ml/min (>60); GFR (African American) 90 ML/MIN (>60); Globulin 3.7 g/dL (1.3-3.2); Glucose 204 mg/dl (74-100); Potassium 4.5 mmoL/L (3.5-5.1); Sodium 141 mmol/L (136-145); Total Protein,Serum 7.5 g/dl (6.3-8.2)
== END ==
PROVIDERS: Visit Provider Dermatology
DX: L40.0 Psoriasis vulgaris (principal); Z79.899 Other long term (current) drug therapy
CPT/HCPCS: 36415; 80053; 85025

== ENCOUNTER → 2021-05-19 10:09 | Outpatient (POV) | payer MEDICARE, SELFPAY | PROVIDERS: Visit Provider Dermatology | DX: Z00.00 Encounter for general adult medical examination without abnormal findings (principal) ==

== ENCOUNTER → 2022-05-19 05:57 | Outpatient (CLI) | payer MEDICARE, SELFPAY ==
[2022-05-19 18:14] LABS: Basophils # 0.2 K/mm3 (0-0.2); Basophils % 2.4 % (0.1-2.0); Eosinophils # 0.3 K/mm3 (0.0-0.4); Eosinophils % 3.3 % (0.1-12.0); Hematocrit 50.9 % (37.0-47.0); Hemoglobin 15.8 g/dL (12.2-16.2); Mean Corpuscular Hemoglobin 31.3 pg (27.0-31.2); Mean Corpuscular Volume 100.9 fl (81-99); Monocytes # 0.7 K/mm3 (0.1-1.0); Monocytes % 8.4 % (1.7-9.3); Neutrophils # 5.1 K/mm3 (1.8-7.8); Neutrophils % 61.8 % (37.0-80.0); Platelet Count 326 K/mm3 (142-424); Red Blood Count 5.05 M/mm3 (4.20-5.40); Red Cell Distribution Width 15.8 % (11.5-17.5); White Blood Count 8.3 K/mm3 (4.8-10.8)
[2022-05-19 19:03] LABS: Hemoglobin A1C 9.7 % (4.0-6.0)
== END ==
PROVIDERS: PCP Family Medicine; Visit Provider Family Medicine
DX: E11.9 Type 2 diabetes mellitus without complications (principal); D50.9 Iron deficiency anemia, unspecified; Z79.84 Long term (current) use of oral hypoglycemic drugs
CPT/HCPCS: 83036; 84443; 85025

== ENCOUNTER → 2022-05-24 06:50 | Outpatient (CLI) | payer MEDICARE, SELFPAY | PROVIDERS: PCP Family Medicine; Visit Provider Family Medicine | DX: R05.9 Cough, unspecified (principal); Z20.822 Contact with and (suspected) exposure to COVID-19 | CPT/HCPCS: C9803; U0003; U0005 ==

== ENCOUNTER → 2022-05-25 09:13 | Outpatient (CLI) | payer MEDICARE, SELFPAY ==
--- NOTE | 2022-05-25 09:20 | XR_ITS ---
FINAL REPORT TECHNIQUE: Chest PA & Lateral CLINICAL HISTORY: cough, SOB FINDINGS: 2 views of the chest were performed. The heart size is normal. The mediastinum is within normal limits. There is no acute cardiopulmonary process. There are no pleural effusions. There is no pneumothorax. The bony thorax appears intact. IMPRESSION: No acute cardiopulmonary process. Reviewed, Interpreted and Dictated by Quincy Kerr MD Transcribed by Tommy Ontiveors Authenticated and [facility]
== END ==
PROVIDERS: PCP Family Medicine; Visit Provider Family Medicine
DX: J06.9 Acute upper respiratory infection, unspecified (principal)
CPT/HCPCS: 71046

== ENCOUNTER → 2022-07-16 09:50 | Outpatient (CLI) | payer MEDICARE, SELFPAY ==
[2022-07-16 16:34] LABS: Basophils # 0.2 K/mm3 (0-0.2); Basophils % 1.5 % (0.1-2.0); Eosinophils # 0.3 K/mm3 (0.0-0.4); Eosinophils % 2.5 % (0.1-12.0); Hematocrit 51.8 % (37.0-47.0); Lymphocytes % 27.4 % (10-50); Mean Corpuscular HGB Conc 30.9 g/dL (31.8-35.4); Mean Corpuscular Hemoglobin 30.5 pg (27.0-31.2); Mean Corpuscular Volume 98.7 fl (81-99); Mean Platelet Volume 8.9 fl (7.4-10.4); Monocytes # 0.7 K/mm3 (0.1-1.0); Monocytes % 6.1 % (1.7-9.3); Neutrophils # 6.8 K/mm3 (1.8-7.8); Neutrophils % 62.6 % (37.0-80.0); Platelet Count 395 K/mm3 (142-424); Red Blood Count 5.25 M/mm3 (4.20-5.40); Red Cell Distribution Width 14.4 % (11.5-17.5); White Blood Count 10.9 K/mm3 (4.8-10.8)
== END ==
PROVIDERS: PCP Nurse Practitioner Family; Visit Provider Nurse Practitioner Family
DX: M25.521 Pain in right elbow (principal)
CPT/HCPCS: 85025

== ENCOUNTER → 2022-08-03 08:34 | Outpatient (POV) | payer MEDICARE, SELFPAY | PROVIDERS: Visit Provider Dermatology | DX: Z00.00 Encounter for general adult medical examination without abnormal findings (principal) ==

== ENCOUNTER → 2022-08-03 09:47 | Outpatient (CLI) | payer MEDICARE, SELFPAY ==
[2022-08-03 10:21] LABS: Basophils # 0.2 K/mm3 (0-0.2); Basophils % 1.5 % (0.1-2.0); Eosinophils # 0.4 K/mm3 (0.0-0.4); Eosinophils % 2.9 % (0.1-12.0); Hemoglobin 16.7 g/dL (12.2-16.2); Lymphocytes # 3.6 K/mm3 (0.7-4.5); Lymphocytes % 26.6 % (10-50); Mean Corpuscular HGB Conc 30.3 g/dL (31.8-35.4); Mean Corpuscular Hemoglobin 30.2 pg (27.0-31.2); Mean Corpuscular Volume 99.7 fl (81-99); Mean Platelet Volume 8.1 fl (7.4-10.4); Monocytes # 0.7 K/mm3 (0.1-1.0); Monocytes % 5.2 % (1.7-9.3); Neutrophils # 8.7 K/mm3 (1.8-7.8); Neutrophils % 63.7 % (37.0-80.0); Platelet Count 355 K/mm3 (142-424); Red Blood Count 5.52 M/mm3 (4.20-5.40); Red Cell Distribution Width 14.5 % (11.5-17.5); White Blood Count 13.6 K/mm3 (4.8-10.8)
[2022-08-03 10:27] LABS: Chloride 102 mmol/L (98-107); Potassium 4.2 mmoL/L (3.5-5.1); Sodium 138 mmol/L (136-145)
[2022-08-03 10:30] LABS: Alanine Aminotransferase 41 U/L (12-78); Albumin/Globulin Ratio 1.1 (1.1-1.8); Alkaline Phosphatase 200 U/L (38-126); Anion Gap 10.2 mEq/L (5-15); Aspartate Amino Transferase 31 U/L (14-36); Blood Urea Nitrogen 11 mg/dl (7-17); Calcium 9.6 mg/dl (8.4-10.2); Carbon Dioxide 30 mmol/L (22.0-30.0); Estimated Glomerular Filt Rate 74 ml/min (>60); GFR (African American) 89 ML/MIN (>60); Globulin 3.5 g/dL (1.3-3.2); Glucose 157 mg/dl (74-100); Total Protein,Serum 7.5 g/dl (6.3-8.2)
[2022-08-03 10:31] LABS: Bilirubin,Total 0.1 mg/dl (0.2-1.3)
[2022-08-05 19:17] LABS: QuantiFERON-TB Gold Plus Negative (Negative)
== END ==
PROVIDERS: PCP Family Medicine; Visit Provider Dermatology
DX: L40.0 Psoriasis vulgaris (principal); Z79.899 Other long term (current) drug therapy
CPT/HCPCS: 36415; 80053; 85025; 86480

== ENCOUNTER 2022-09-17 07:25 | Emergency (ER) | payer MEDICARE, SELFPAY ==
[2022-09-17] VITALS (8 sets, daily range): BP systolic 115–141; BP diastolic 57–86; PULSE 66–75; RESP 18–19; TEMP 36.8; O2SAT 92–99; BMI 43.2
--- NOTE | 2022-09-17 07:49 | XR_ITS ---
FINAL REPORT CLINICAL HISTORY: fall FINDINGS: LEFT SHOULDER 3 views of the left shoulder were obtained. There is no acute fracture or dislocation. There is deformity of the proximal humerus, favor chronic fracture. Probable coracoid loose bodies are seen. Degenerative changes are noted of the acromioclavicular and glenohumeral joints. Soft tissues are unremarkable. IMPRESSION: No acute bony abnormality. Reviewed, Interpreted and Dictated by Chriss Wilson III, MD Transcribed by Trudy Birch Authenticated and . [facility]
--- NOTE | 2022-09-17 07:49 | XR_ITS ---
FINAL REPORT CLINICAL HISTORY: fall FINDINGS: LEFT 1ST DIGIT 3 views were obtained. There is no acute fracture or dislocation. Visualized joint spaces are normally aligned. Soft tissues are unremarkable. IMPRESSION: No acute bony abnormality. Reviewed, Interpreted and Dictated by Chriss Wilson III, MD Transcribed by Trudy Birch Authenticated and [facility]
--- NOTE | 2022-09-17 07:52 | HMH.EDFALL ---
Discharge Plan Disposition Patient Disposition: Home, Self-Care Condition: Fair Prescriptions Prescriptions: New hydrocodone-acetaminophen 5-325 mg tablet 1 tab PO Q8H PRN (Reason: pain) Qty: 7 0RF methocarbamol [Methocarbamol] 750 mg tablet 750 mg PO Q6 PRN (Reason: Muscle Spasm) Qty: 30 0RF No Action sucralfate 1 gram tablet 1 g PO TID magnesium oxide 400 mg magnesium capsule 400 mg PO DAILY Linzess 290 mcg capsule 290 mcg PO DAILY montelukast 10 mg tablet 10 mg PO DAILY vitamin B complex Capsule 1 cap PO DAILY ascorbic acid (vitamin C) [Vitamin C] 1,000 mg tablet 1 g PO DAILY coenzyme [id number] 100-100 mg-unit capsule PO DAILY pantoprazole 20 mg tablet,delayed release (DR/EC) 20 mg PO DAILY lisinopril 5 mg tablet 5 mg PO DAILY amitriptyline 100 mg tablet 100 mg PO DAILY Trelegy Ellipta 100-62.5-25 mcg blister with device 1 inh inhalation DAILY Humira Pen 40 mg/0.8 mL pen injector kit SQ albuterol sulfate 2.5 mg /3 mL (0.083 %) solution for nebulization 2.5 mg continuous nebulization Q6H PRN Botox 200 unit recon soln SQ Rx Instructions: every three months ondansetron 4 mg tablet,disintegrating 4 mg PO Q8H PRN (Reason: nausea and vomiting) Qty: 20 2RF diclofenac sodium 1 % gel 2 g topical QID Qty: 100 4RF Rx Instructions: apply to single elbow. Jardiance 25 mg tablet 25 mg PO DAILY 90 Days Qty: 90 2RF (DME) pen needle, diabetic [BD Ultra-Fine Zeina Pen Needle] 32 gauge x 5/32 needle See Rx Instructions .Route Qty: 100 2RF Rx Instructions: As directed (DME) ReliOn Prime Test Strips Strip See Rx Instructions .Route Qty: 100 3RF Rx Instructions: Pt is to test BID prn indomethacin 50 mg capsule 50 mg PO TID 10 Days Qty: 30 0RF Rx Instructions: administer with food or milk insulin glargine [Lantus Solostar U-100 Insulin] 100 unit/mL (3 mL) insulin pen 56 unit SQ HS 30 Days Qty: 16.8 2RF levothyroxine 175 mcg tablet See Rx Instructions .ROUTE .COMPLEX Qty: 90 0RF Dose Instruction: TAKE 1 TABLET EVERY DAY Rx Instructions: TAKE 1 TABLET EVERY DAY metformin 500 mg tablet See Rx Instructions .ROUTE .COMPLEX Qty: 360 0RF Dose Instruction: TAKE 2 TABLETS TWICE DAILY FOR DIABETES Rx Instructions: TAKE 2 TABLETS TWICE DAILY FOR DIABETES levocetirizine 5 mg tablet 5 mg PO DAILY 90 Days Qty: 90 0RF citalopram 20 mg tablet 20 mg PO DAILY Qty: 90 3RF hydroxyzine pamoate 25 mg capsule 25 mg PO TID PRN (Reason: anxiety) Qty: 180 3RF Myrbetriq 50 mg tablet extended release 24 hr 50 mg PO DAILY Qty: 90 3RF topiramate 100 mg tablet 200 mg PO DAILY Qty: 180 3RF fluticasone propionate 50 mcg/actuation spray,suspension 2 spray intranasal DAILY PRN (Reason: nasal congestion) Qty: 48 3RF albuterol sulfate 90 mcg/actuation HFA aerosol inhaler 2 puff inhalation Q6H PRN (Reason: shortness of breath or wheezing) Qty: 25.5 3RF rosuvastatin 20 MG tablet 20 mg PO DAILY Referrals Follow up/Referrals: Valerio Nguyễn DO [Staff Physician] - See instructions (left shoulder injury, concern for rotator cuff injury) Lm Chris MD [Primary Care Provider] - See instructions Clinical Impressions Clinical Impression: Injury of left shoulder Instructions Patient Instructions: DI for Rotator Cuff Injury Discharge ED Provider: Mark Du[facility] General Chief Complaint: Fall Stated Complaint: fall Time Seen by Provider: 09/17/22 07:50 Mode of Arrival: Ambulatory Source of Information: Patient Limitations: No Limitations Description of Symptoms (Recalled from ER Triage Doc. by RN): c/o left shoulder/blade, rib pain and thumb after falling this morning. PT states that she was walking and slipped on a toy rail road track. Pt denies hitting her he
--- NOTE | 2022-09-17 07:55 | XR_ITS ---
FINAL REPORT CLINICAL HISTORY: fall right rib pain COMPARISON: 05/25/2022 FINDINGS: 2 views of the chest were obtained . Postoperative changes are noted of the lower cervical spine. The heart is normal in size. The mediastinum is within normal limits. The lungs are clear. There is no pneumothorax. Osseous structures are unremarkable. IMPRESSION: No acute cardiopulmonary process. Reviewed, Interpreted and Dictated by Chriss Wilson III, MD Transcribed by Trudy Birch Authenticated and [facility]
--- NOTE | 2022-09-17 07:55 | XR_ITS ---
FINAL REPORT CLINICAL HISTORY: fall FINDINGS: LEFT WRIST Three views demonstrate no acute fracture or dislocation. Mild degenerative changes are noted. The visualized joint spaces are normally aligned. The soft tissues are unremarkable. IMPRESSION: No acute bony abnormality. Reviewed, Interpreted and Dictated by Chriss Wilson III, MD Transcribed by Trudy Birch Authenticated and [facility]
--- NOTE | 2022-09-17 07:55 | XR_ITS ---
FINAL REPORT CLINICAL HISTORY: fall FINDINGS: LEFT HUMERUS 2 views were obtained. There is no acute fracture or dislocation. There is deformity of the proximal humerus, favor chronic fracture. There are probable subcoracoid loose bodies. The joint spaces are intact. There is no soft tissue abnormality. IMPRESSION: No acute bony abnormality. Reviewed, Interpreted and Dictated by Chriss Wilson III, MD Transcribed by Trudy Birch Authenticated and [facility]
--- NOTE | 2022-09-17 08:35 | PC.NURSE ---
Patient back from X-ray.
--- NOTE | 2022-09-17 09:59 | PC.NURSE ---
Went in to inform patient that x-rays were back we are just waiting for to review over them. Asked patient if she needed anything call light within reach of patient
--- NOTE | 2022-09-17 10:30 | PC.NURSE ---
Placed sling on patient's left arm.
== END 2022-09-17 11:52 | disposition home or self-care (01) ==
PROVIDERS: Emergency Provider Student in an Organized Health Care Education/Training Program; PCP Family Medicine
DX: S40.912A Unspecified superficial injury of left shoulder, initial encounter (principal); R07.81 Pleurodynia; W01.0XXA Fall on same level from slipping, tripping and stumbling without subsequent striking against object, initial encounter; E11.9 Type 2 diabetes mellitus without complications; E03.9 Hypothyroidism, unspecified; J45.909 Unspecified asthma, uncomplicated; K21.9 Gastro-esophageal reflux disease without esophagitis; F32.A Depression, unspecified; M79.7 Fibromyalgia; E78.5 Hyperlipidemia, unspecified; F17.210 Nicotine dependence, cigarettes, uncomplicated; M79.645 Pain in left finger(s)
CPT/HCPCS: 71046; 73030; 73060; 73110; 73140; 99285

== ENCOUNTER → 2022-09-30 07:38 | Outpatient (CLI) | payer MEDICARE, SELFPAY | PROVIDERS: PCP Family Medicine; Visit Provider Orthopaedic Surgery | DX: M25.512 Pain in left shoulder (principal) ==

== ENCOUNTER → 2022-10-13 14:39 | Outpatient (CLI) | payer MEDICARE, SELFPAY ==
--- NOTE | 2022-10-13 14:39 | CT_ITS ---
FINAL REPORT TECHNIQUE: Axial images through the left shoulder was performed by computed tomography. Sagittal and coronal reformatted images were obtained and reviewed. This study was performed with techniques to keep radiation doses as low as reasonably achievable (ALARA). Individualized dose reduction techniques using automated exposure control or adjustment of mA and/or kV according to the patient's size were employed. CLINICAL HISTORY: shoulder pain, fall FINDINGS: There are moderate hypertrophic changes of osteoarthritis of the glenohumeral joint. There is a well corticated ossific density in the subcoracoid recess measuring up to 1.5 cm in greatest dimension, probably related to an intra-articular loose body. There are [id number] hypertrophic changes of the AC joint. No fracture is identified. IMPRESSION: Degenerative and chronic appearing findings as detailed above. No acute fracture identified. Reviewed, Interpreted and Dictated by Quincy Kerr MD Transcribed by Kasey Mcintyre Authenticated and [facility]
== END ==
LOC: RAD 14:39
PROVIDERS: PCP Family Medicine; Visit Provider Orthopaedic Surgery
DX: S49.92XA Unspecified injury of left shoulder and upper arm, initial encounter (principal); M25.512 Pain in left shoulder; M79.602 Pain in left arm
CPT/HCPCS: 73200

== ENCOUNTER 2022-10-20 10:46 | Outpatient (RCR) | payer MEDICARE, SELFPAY ==
--- NOTE | 2022-10-20 11:49 | HMH.PTOPEV ---
PT Outpatient Evaluation Rehab PT Outpatient Evaluation Start: 10/20/22 10:55 Freq: Status: Active Protocol: Document 10/20/22 10:55 AKASH (Rec: 10/20/22 11:47 PDESEROUX [id number]) E-signed By Zen Person, PT Outpatient Therapy Subjective History Subjective History Pt. is a 57 year old female whom presents to [facility] in [place] for the initial evaluation this date( 10/20/22) w/ c/o subacute and constant LUE shldr. P!, TTP, and weakness of traumatic onset after falling onto the LUE shldr. Pt. reports DOI was on 09/17/22 after slipping on some plastic railroad train tracks coming back from using the restroom when she fell onto the LUE shldr. Pt. reports recent diagnostic imaging(radiograph/CT scan) negative for acute fx. nor RC pathology. Pt. reports having some symptom relief w/ steroid injection for current complaint. Pt. reports donning LUE shldr. sling for 3-4wks. that helped to provide some symptom relief as well. Pt. reports she is able to move it more some. Pt. RTMD middle of November. See chart for current list of medications and PMH. Pt. denies pacemaker, denies latex allergy, denies hx. of cancer(self). Chief Complaint Pain,Spasms,Stiff,Swelling, Weakness Symptom Type Ache,Sharp,Stabbing,Burning, Shooting Symptoms Relieved By Rest/Positioning,Ice,Brace/ Support,Prescription Meds Symptoms Aggravated By Supine,Physical Activity, Twisting,Lifting Prior Functional Limitations None Current Functional Limitations Reaching,Lifting,Housework, Dressing,Sleeping,Recreation Activity Symptom Description Constant but Variable,Activity Dependent Level of pain today (0-10) 3
== END 2022-12-13 10:30 | disposition home or self-care (01) ==
LOC: PT 10:46
PROVIDERS: PCP Family Medicine; Visit Provider Orthopaedic Surgery
DX: M25.512 Pain in left shoulder (principal)
CPT/HCPCS: 97163

== ENCOUNTER → 2022-12-02 07:09 | Outpatient (CLI) | payer MEDICARE, SELFPAY ==
[2022-12-02 17:37] LABS: Alanine Aminotransferase 14 U/L (12-78); Albumin Level 3.9 g/dl (3.5-5.0); Albumin/Globulin Ratio 1.2 (1.1-1.8); Alkaline Phosphatase 129 U/L (38-126); Anion Gap 11.2 mEq/L (5-15); Aspartate Amino Transferase 21 U/L (14-36); Bilirubin,Total 0.5 mg/dl (0.2-1.3); Blood Urea Nitrogen 10 mg/dl (7-17); Calcium 8.9 mg/dl (8.4-10.2); Carbon Dioxide 29 mmol/L (22.0-30.0); Chloride 102 mmol/L (98-107); Chol/HDL Ratio 4.1 (1-3.5); Cholesterol 163 mg/dl (140-200); Estimated Glomerular Filt Rate 74 ml/min (>60); GFR (African American) 89 ML/MIN (>60); Globulin 3.2 g/dL (1.3-3.2); Glucose 141 mg/dl (74-100); HDL Cholesterol 40 mg/dl (40-60); Potassium 4.2 mmoL/L (3.5-5.1); Sodium 138 mmol/L (136-145); Total Protein,Serum 7.1 g/dl (6.3-8.2); Triglycerides 325 mg/dl (30-150); VLDL Cholesterol 65 mg/dL (0-40)
[2022-12-02 17:41] LABS: Basophils # 0.1 K/mm3 (0-0.2); Eosinophils # 0.3 K/mm3 (0.0-0.4); Eosinophils % 3.3 % (0.1-12.0); Hematocrit 47.6 % (37.0-47.0); Hemoglobin 15.2 g/dL (12.2-16.2); Lymphocytes # 2.2 K/mm3 (0.7-4.5); Lymphocytes % 23.1 % (10-50); Mean Corpuscular Volume 90.6 fl (81-99); Mean Platelet Volume 9.4 fl (7.4-10.4); Monocytes # 0.6 K/mm3 (0.1-1.0); Neutrophils # 6.4 K/mm3 (1.8-7.8); Neutrophils % 66.6 % (37.0-80.0); Platelet Count 327 K/mm3 (142-424); Red Blood Count 5.25 M/mm3 (4.20-5.40); Red Cell Distribution Width 19.4 % (11.5-17.5); White Blood Count 9.6 K/mm3 (4.8-10.8)
[2022-12-02 17:47] LABS: Direct LDL Cholesterol 34.12 mg/dL (100-129)
[2022-12-02 18:42] LABS: Microalbumin/Creatinine Ratio 129.3
[2022-12-02 18:44] LABS: Creatinine,Urine Random 86 mg/dL (Not Estab.); Hemoglobin A1C 7.3 % (4.0-6.0)
== END ==
PROVIDERS: PCP Family Medicine; Visit Provider Family Medicine
DX: E11.9 Type 2 diabetes mellitus without complications (principal); I10 Essential (primary) hypertension; R53.83 Other fatigue; Z00.00 Encounter for general adult medical examination without abnormal findings; Z79.4 Long term (current) use of insulin
CPT/HCPCS: 80053; 80061; 82043; 82570; 83036; 84443; 85025

== ENCOUNTER → 2023-01-11 08:47 | Outpatient (POV) | payer MEDICARE, SELFPAY | PROVIDERS: Visit Provider Dermatology | DX: Z00.00 Encounter for general adult medical examination without abnormal findings (principal) ==

== ENCOUNTER 2023-02-07 05:45 | Observation (INO) | payer MEDICARE, SELFPAY ==
[2023-02-07] VITALS (12 sets, daily range): BP systolic 116–156; BP diastolic 52–83; PULSE 67–80; RESP 16–23; TEMP 36.6–36.9; O2SAT 90–93; BMI 44.4; BMI 43.4
--- NOTE | 2023-02-07 05:48 | ECG_ITS ---
APPROVED REPORT Exam: Resting ECG HR:70 bpm ECG Measurements Heart Rate 70 AXES TN 148 P -23 QRSd 108 QRS 41 QT 407 T 29 QTc 427 Conclusion SINUS RHYTHM LOW QRS VOLTAGE IN PRECORDIAL LEADS [QRS DEFLECTION < 1.0 mV IN CHEST LEADS] BORDERLINE ECG UNCONFIRMED REPORT Electronically signed by : Ziyad Murray MD 02/07/2023 21:26:05
--- NOTE | 2023-02-07 06:05 | XR_ITS ---
PROCEDURE INFORMATION: Exam: XR Chest Exam date and time: 02/07/2023 6:32 AM Age: 57 years old Clinical indication: Cough and shortness of breath; Patient HX: Cough, SOA, chest pain TECHNIQUE: Imaging protocol: Radiologic exam of the chest. Views: 1 view. COMPARISON: CR XR CHEST 2V 09/17/2022 8:17 AM FINDINGS: Lungs: Clear lungs. Pleural spaces: No pneumothorax. No sizable pleural effusion. Heart/Mediastinum: Cardiac size cannot be accurately assessed in this projection. No cardiomegaly. Bones/joints: Unremarkable. IMPRESSION: Clear lungs.
[2023-02-07 06:10] LABS: Coronavirus 19, PCR Not Detected (NotDetected); Influenza A, PCR Not Detected (NotDetected); Influenza B, PCR Not Detected (NotDetected)
[2023-02-07 06:27] LABS: Chloride 102 mmol/L (98-107)
[2023-02-07 06:28] LABS: Basophils # 0.1 K/mm3 (0-0.2); Basophils % 0.5 % (0.1-2.0); Eosinophils # 0.4 K/mm3 (0.0-0.4); Hematocrit 46.4 % (37.0-47.0); Hemoglobin 14.3 g/dL (12.2-16.2); Lymphocytes # 3.4 K/mm3 (0.7-4.5); Mean Corpuscular HGB Conc 30.7 g/dL (31.8-35.4); Mean Corpuscular Hemoglobin 27.9 pg (27.0-31.2); Mean Corpuscular Volume 90.7 fl (81-99); Mean Platelet Volume 8.3 fl (7.4-10.4); Monocytes # 0.8 K/mm3 (0.1-1.0); Neutrophils # 8.9 K/mm3 (1.8-7.8); Neutrophils % 65.5 % (37.0-80.0); Platelet Count 333 K/mm3 (142-424); Potassium 3.6 mmoL/L (3.5-5.1); Red Blood Count 5.11 M/mm3 (4.20-5.40); Red Cell Distribution Width 19.5 % (11.5-17.5); White Blood Count 13.5 K/mm3 (4.8-10.8)
[2023-02-07 06:30] LABS: Alanine Aminotransferase 24 U/L (12-78); Albumin Level 3.4 g/dl (3.5-5.0); Alkaline Phosphatase 118 U/L (38-126); Aspartate Amino Transferase 34 U/L (14-36); Bilirubin,Total 0.2 mg/dl (0.2-1.3); Blood Urea Nitrogen 10 mg/dl (7-17); Calcium 8.6 mg/dl (8.4-10.2); Carbon Dioxide 29 mmol/L (22.0-30.0); Creatinine Clearance Estimated 82 mL/min (50-200); Estimated Glomerular Filt Rate 86 ml/min (>60); GFR (African American) 104 ML/MIN (>60); Globulin 3.3 g/dL (1.3-3.2); Glucose 87 mg/dl (74-100); Total Protein,Serum 6.7 g/dl (6.3-8.2)
[2023-02-07 06:31] LABS: Lactic Acid 1.3 mmol/L (0.7-2.1)
[2023-02-07 06:40] LABS: NT Pro Brain Natriuretic Pep. 171 pg/mL (0-125)
[2023-02-07 06:48] LABS: Troponin I < 0.01 ng/ml (0.00-0.034)
--- NOTE | 2023-02-07 06:48 | HMH.EDSOB ---
Discharge Plan Disposition Chief Complaint: Shortness of Breath/Dyspnea Prescriptions Prescriptions: No Action pantoprazole 40 mg tablet,delayed release (DR/EC) 40 mg PO DAILY clobetasol 0.05 % ointment 1 applic topical DAILY PRN lisinopril 5 mg tablet See Rx Instructions .ROUTE .COMPLEX Qty: 90 0RF Dose Instruction: TAKE 1 TABLET EVERY DAY FOR HYPERTENSION Rx Instructions: TAKE 1 TABLET EVERY DAY FOR HYPERTENSION metformin 500 mg tablet See Rx Instructions .ROUTE .COMPLEX Qty: 360 0RF Dose Instruction: TAKE 2 TABLETS TWICE DAILY FOR DIABETES Rx Instructions: TAKE 2 TABLETS TWICE DAILY FOR DIABETES rosuvastatin 20 mg tablet 20 mg PO DAILY 90 Days Qty: 90 0RF montelukast 10 mg tablet 10 mg PO DAILY 90 Days Qty: 90 2RF Taltz Autoinjector (3 Pack) 80 mg/mL auto-injector 80 mg SQ Q4W doxycycline hyclate 100 mg capsule 100 mg PO BID 10 Days Qty: 20 0RF sucralfate 1 gram tablet 1 g PO TID Linzess 290 mcg capsule 290 mcg PO DAILY ascorbic acid (vitamin C) [Vitamin C] 1,000 mg tablet 1 g PO DAILY albuterol sulfate 2.5 mg /3 mL (0.083 %) solution for nebulization 2.5 mg continuous nebulization Q6H PRN Botox 200 unit recon soln SQ Rx Instructions: every three months (DME) ReliOn Prime Test Strips Strip See Rx Instructions .Route Qty: 100 3RF Rx Instructions: Pt is to test BID prn levothyroxine 175 mcg tablet See Rx Instructions .ROUTE .COMPLEX Qty: 90 0RF Dose Instruction: TAKE 1 TABLET EVERY DAY Rx Instructions: TAKE 1 TABLET EVERY DAY citalopram 20 mg tablet 20 mg PO DAILY Qty: 90 3RF hydroxyzine pamoate 25 mg capsule 25 mg PO TID PRN (Reason: anxiety) Qty: 180 3RF Myrbetriq 50 mg tablet extended release 24 hr 50 mg PO DAILY Qty: 90 3RF topiramate 100 mg tablet 200 mg PO DAILY Qty: 180 3RF fluticasone propionate 50 mcg/actuation spray,suspension 2 spray intranasal DAILY PRN (Reason: nasal congestion) Qty: 48 3RF ondansetron 4 mg tablet,disintegrating 4 mg PO Q8H PRN (Reason: nausea and vomiting) Qty: 20 2RF insulin glargine [Lantus Solostar U-100 Insulin] 100 unit/mL (3 mL) insulin pen See Rx Instructions .ROUTE .COMPLEX Qty: 15 5RF Dose Instruction: 56 UNIT (0.56 ML) SUBCUTANEOUSLY AT BEDTIME NIGHTLY FOR 30 DAYS Rx Instructions: 56 UNIT (0.56 ML) SUBCUTANEOUSLY AT BEDTIME NIGHTLY FOR 30 DAYS (DME) pen needle, diabetic [Droplet Pen Needle] 32 gauge x 5/32 needle See Rx Instructions .ROUTE .COMPLEX Qty: 300 0RF Dose Instruction: USE DIRECTED FOR DIABETES Rx Instructions: USE DIRECTED FOR DIABETES albuterol sulfate 90 mcg/actuation HFA aerosol inhaler 2 puff inhalation Q6H PRN (Reason: shortness of breath or wheezing) 90 Days Qty: 25.5 2RF Jardiance 25 mg tablet 25 mg PO DAILY 90 Days Qty: 90 2RF fluconazole [Diflucan] 150 mg tablet 150 mg PO Q3D Qty: 2 0RF Rx Instructions: may repeat second dose 72 hrs after first dose if symptoms persist ondansetron 4 mg tablet,disintegrating 4 mg PO Q8H PRN (Reason: nausea and vomiting) Qty: 20 0RF Discharge ED Provider: Dc (ED)Nathan Resp/SOB HPI General Chief Complaint: Shortness of Breath/Dyspnea Stated Complaint: dyspnea,pleuritic chest pain Time Seen by Provider: 02/07/23 06:20 Mode of Arrival: EMS Source of Information: Patient, Spouse, EMS and Medical Record Limitations: No Limitations Description of Symptoms (Recalled from ER Triage Doc. by RN): 57 yo female presents with CC of left side anterior chest wall pain that increases with inspiratory breathing, as well as cough. Currently being treated for Left lung pneumonia per her pcp at Dr Chris's office in [place]. I have a couple of days of antibiotic left but it's not getting any better . PMH: COPD, asthma, DM (insulin and oral meds). Reports FSBS to be 130-140's ov
[2023-02-07 07:17] LABS: Anion Gap 11.6 mEq/L (5-15); Sodium 139 mmol/L (136-145)
--- NOTE | 2023-02-07 07:26 | PC.NURSE ---
ER MD Irwin spoke hospitalist.
--- NOTE | 2023-02-07 07:28 | PC.NURSE ---
notified household appliances salesperson of admission
--- NOTE | 2023-02-07 07:57 | PC.NURSE ---
arrived to floor by w/c from ED
--- NOTE | 2023-02-07 08:02 | HMH.PHAINT1 ---
Pharmacy Intervention Comments: MEDICATION RECONCILIATION COMPLETED ON PATIENT USING EXTERNAL FILL HISTORY FROM PHARMACY. -ZIA EASLEY, DONNAD
--- NOTE | 2023-02-07 08:45 | EXP.HP ---
History of Present Illness *Admission Date: 02/07/23 *Reason for visit:: COPD Excerbation *History of present illness: 57 year old female who presented to the ED for c/o SOA and dyspnea. PMHX of COPD, DM 2, and urinary incontinence. She was seen last Tuesday by her PCP and started on Doxycycline daily for a pneumonia of her left lower lung. The ED physician discussed the case with the Hospitalist team and the patient was admitted to the medical floor for a COPD exacerbation. Upon examination of the patient she has bilateral wheezing in her lungs, has a new oxygen requirement, and c/o pain with inspiration. Her chest xray is unremarkable and troponins are negative. She has an elevated WBC of 13.5. She will be started on IV antibiotics and oral steroids. Attempt to wean oxygen as tolerated to goal 02 sat of 90 %. [facility] Disclaimer: The information contained in this section may have been updated after the patient was seen, as this information can be updated by other users. Medical History Allergies Arthritis Asthma Chronic GERD Chronic pain COPD (chronic obstructive pulmonary disease) Depression Diabetes mellitus Disorder of neuromuscular transmission Encounter for debridement of skin Epidermal cyst Fibromyalgia H/O cyst of breast H/O renal calculi Hearing loss Hyperlipidemia Hypothyroid Kidney stones Lichen sclerosus Morbid obesity DELIA (obstructive sleep apnea) Psoriasis Stomach ulcer TIA (transient ischemic attack) Tongue abnormality Surgical History H/O bladder repair surgery H/O section H/O colonoscopy H/O hand surgery H/O neck surgery H/O oral surgery H/O toe surgery H/O total knee replacement History of ankle surgery History of total abdominal hysterectomy and bilateral salpingo-oophorectomy Hx of cholecystectomy Hx of esophagogastroduodenoscopy Family History Mother Arthritis Hypertension Coronary artery disease Hyperlipidemia Father Arthritis Hypertension Hyperlipidemia Coronary artery disease Grandmother Diabetes Social History (Updated 02/07/23 @ 09:03 by Katelyn Prieto RN) Smoking Status: Current every day smoker tobacco type: cigarettes packs per day: 1 alcohol intake: never current occupational status: disabled Travel in the last 8 weeks: None household members: spouse current occupational exposures/hazards: No caffeine: Yes Review of Systems Review of Systems Review of systems:: pertinent systems reviewed and negative unless documented below Constitutional Constitutional: Reports system reviewed and no additional complaints, except as documented Eyes Eyes: Reports system reviewed and no additional complaints, except as documented ENT Ears, Nose, Mouth, and Throat: Reports system reviewed and no additional complaints, except as documented *Cardiovascular Cardiovascular: Reports system reviewed and no additional complaints, except as documented *Respiratory Respiratory: Reports system reviewed and no additional complaints, except as documented *Gastrointestinal Gastrointestinal: Reports system reviewed and no additional complaints, except as documented *Genitourinary Genitourinary: Reports system reviewed and no additional complaints, except as documented *Musculoskeletal Musculoskeletal: Reports system reviewed and no additional complaints, except as documented *Neurologic Neurologic: Reports system reviewed and no additional complaints, except as documented Meds Home Medications and Allergies Home Medications Medication Instructions Recorded Confirmed Type albuterol sulfate 2.5 mg/3 mL 2.5 mg inhalation Q6HP PRN 05/19/22 02/07/23 History (0.083 %) solution for nebulization Shortness Of Breath ascorbic acid (vitamin C) 1,000 mg 1,000 mg PO DAILY Supplement 05/19/22 02/07/23 History tablet
[2023-02-07 10:04] LABS: Troponin I < 0.01 ng/ml (0.00-0.034)
[2023-02-07 10:06] LABS: Hemoglobin A1C 6.6 % (4.0-6.0)
[2023-02-07 10:30] LABS: Thyroid Stimulating Hormone 4.32 uIU/mL (0.465-4.68)
[2023-02-07 11:21] LABS: POC Glucose,Bedside 154 (70-110)
[2023-02-07 12:54] LABS: Troponin I < 0.01 ng/ml (0.00-0.034)
[2023-02-07 16:11] LABS: Adenovirus,PCR Not Detected (NotDetected); Bordetella Pertussis Not Detected (NotDetected); Chlamydophila Pneumoniae, PCR Not Detected (NotDetected); Coronavirus 19, PCR Not Detected (NotDetected); Coronavirus 229E Not Detected (NotDetected); Coronavirus NL63 Not Detected (NotDetected); Coronavirus OC43 Not Detected (NotDetected); Coronovirus HKU1,PCR Not Detected (NotDetected); Human Metapneumovirus Not Detected (NotDetected); Influenza A, PCR Not Detected (NotDetected); Influenza AH1, 2009 Not Detected (NotDetected); Influenza AH1, PCR Not Detected (NotDetected); Influenza AH3,PCR Not Detected (NotDetected); Influenza B, PCR Not Detected (NotDetected); Mycoplasma Pneumoniae, PCR Not Detected (NotDetected); Parainfluenza 1, PCR Not Detected (NotDetected); Parainfluenza 2, PCR Not Detected (NotDetected); Parainfluenza 3, PCR Not Detected (NotDetected); Parainfluenza 4, PCR Not Detected (NotDetected); Respiratory Syncytial Virus Not Detected (NotDetected); Rhinovirus/Enterovirus Not Detected (NotDetected)
[2023-02-07 16:28] LABS: POC Glucose,Bedside 165 (70-110)
[2023-02-07 21:09] LABS: POC Glucose,Bedside 182 (70-110)
[2023-02-08 04:00] VITALS: BP 134/74; PULSE 76; RESP 20; TEMP 36.9; O2SAT 93; BMI 43.0
--- NOTE | 2023-02-08 04:47 | PC.NURSE ---
Patient had a good night. Stated she did have more of an appetite tonight. Patient is in bed resting.
[2023-02-08 06:24] LABS: Basophils % 0.2 % (0.1-2.0); Chloride 105 mmol/L (98-107); Eosinophils # 0.1 K/mm3 (0.0-0.4); Eosinophils % 0.4 % (0.1-12.0); Lymphocytes # 2.6 K/mm3 (0.7-4.5); Lymphocytes % 20.3 % (10-50); Mean Corpuscular HGB Conc 30.2 g/dL (31.8-35.4); Mean Corpuscular Hemoglobin 27.7 pg (27.0-31.2); Mean Corpuscular Volume 91.7 fl (81-99); Mean Platelet Volume 7.2 fl (7.4-10.4); Monocytes % 8.1 % (1.7-9.3); Neutrophils # 9.1 K/mm3 (1.8-7.8); Neutrophils % 70.9 % (37.0-80.0); Platelet Count 301 K/mm3 (142-424); Red Blood Count 4.69 M/mm3 (4.20-5.40); Sodium 140 mmol/L (136-145); White Blood Count 12.8 K/mm3 (4.8-10.8)
[2023-02-08 06:25] LABS: Potassium 3.7 mmoL/L (3.5-5.1)
[2023-02-08 06:27] VITALS: PULSE 60; PULSE 64; O2SAT 94
[2023-02-08 06:27] LABS: POC Glucose,Bedside 102 (70-110)
[2023-02-08 06:28] LABS: Anion Gap 9.7 mEq/L (5-15); Blood Urea Nitrogen 9 mg/dl (7-17); Calcium 8.9 mg/dl (8.4-10.2); Carbon Dioxide 29 mmol/L (22.0-30.0); Creatinine Clearance Estimated 96 mL/min (50-200); Estimated Glomerular Filt Rate 103 ml/min (>60); GFR (African American) 124 ML/MIN (>60); Glucose 90 mg/dl (74-100)
[2023-02-08 07:31] VITALS: BP 117/68; PULSE 75; RESP 16; TEMP 36.7; O2SAT 94
[2023-02-08 07:51] VITALS: O2SAT 92
[2023-02-08 08:00] VITALS: O2SAT 92
[2023-02-08 11:02] LABS: POC Glucose,Bedside 86 (70-110)
--- NOTE | 2023-02-08 11:08 | EXP.DC.SUM ---
General Admission date:: 02/07/23 Discharge date: 02/08/23 HPI HPI HPI: 57 year old female who presented to the ED for c/o SOA and dyspnea. PMHX of COPD, DM 2, and urinary incontinence. She was seen last Tuesday by her PCP and started on Doxycycline daily for a pneumonia of her left lower lung. The ED physician discussed the case with the Hospitalist team and the patient was admitted to the medical floor for a COPD exacerbation. Upon examination of the patient she has bilateral wheezing in her lungs, has a new oxygen requirement, and c/o pain with inspiration. Her chest xray is unremarkable and troponins are negative. She has an elevated WBC of 13.5. She will be started on IV antibiotics and oral steroids. Attempt to wean oxygen as tolerated to goal 02 sat of 90 %. Hospital Course Hospital Course Hospital Course: 57 year old female who presented to the ED for c/o SOA and dyspnea.? PMHX of COPD, DM 2, and urinary incontinence. She was seen last Tuesday by her PCP and started on Doxycycline daily for a pneumonia of her left lower lung. Admitted for observation due to new oxygen requirement. Has done well overnight. Off oxygen by this morning with room air saturation in the low 90s. Stable for discharge home. Problems addressed as follows: COPD EXACERABTION -Chest x-ray reviewed showing improvement/clear lungs. Requiring 2 L nasal oxygen initially for goal saturation greater 90%. Started on prednisone 40 mg daily. Received a dose of ceftriaxone 1 g and azithromycin 500 mg IV. We will continue azithromycin for 1 more day to complete 3-day course of 500 mg daily. Take azithromycin pill once on Friday 02/09. 3 more days of steroids to complete 5-day course. Comprehensive respiratory panel negative for all analytes. Patient had sick contacts at home over the past week or 2, suspect potential viral component to this respiratory distress. Stable for discharge home with continued treatment for COPD exacerbation. Continue home inhaler regimen. DIABETES MELLITUS -Continued her home Lantus 64 units daily. Monitored fingersticks ACHS. A1c obtained during admission 6.6. Appears that her diabetes is well controlled at this time. No other changes. URINARY INCONTINENCE -Continue home Mirabegron 50 mg daily for UTI prophylaxis. HYPOTHYROID HLD HTN -TSH 4.3 on admission. Continuing home levothyroxine 175 mcg daily. Continued home regimen for cholesterol and hypertension including lisinopril and Crestor. Patient stable for discharge home. No oxygen requirement at this time. Complete antibiotics and steroids as ordered. Follow-up with PCP in the next 1 to 2 weeks. Exam Data for Last 24 hours Vital signs and Labs for Last 24 Hours: Temp Pulse Resp BP Pulse Ox 98.0 F 75 16 117/68 92 L 02/08/23 07:31 02/08/23 07:31 02/08/23 07:31 02/08/23 07:31 02/08/23 08:00 Laboratory Results - last 24 hr 02/07/23 06:04: Chlamy pneumoniae PCR Not detected, Adenovirus (PCR) Not detected, B. pertussis DNA (PCR) Not detected, Coronavirus OC43 (PCR) Not detected, Coronavirus HKU1 (PCR) Not detected, Coronavirus 229E (PCR) Not detected, SARS-CoV-2 (PCR) Not detected, Coronavirus NL63 (PCR) Not detected, Human Metapneumovir PCR Not detected, Influenza A (H1) PCR Not detected, Influ A (H1N1/09) PCR Not detected, Influenza A (H3) PCR Not detected, Influenza Type A (PCR) Not detected, Influenza Type B (PCR) Not detected, M. pneumoniae (PCR) Not detected, Parainfluenza 1 (PCR) Not detected, Parainfluenza 2 (PCR) Not detected, Parainfluenza 3 (PCR) Not detected, Parainfluenza 4 (PCR) Not detected, RSV (PCR) Not detected, Entero/Rhino (PCR) Not detected 02/07/23 10:58: POC Glucose 154 H 02/07/23 12:09: Troponin I < 0.01 02/07/23 16:21: POC Glucose 165 H 02/07/23 21:00: POC Glucose 182 H 02/08/23 05:43: WBC 12.8 H, RBC 4.69, Hgb 13.0, Hct 43.0, MCV 91.7, MCH 27.7, MCHC 30.2 L, RDW 19.0 H, Plt Count 301, MPV 7.2 L, Neut % (Auto) 70.9, Lymph % (Auto) 20.
[2023-02-08 11:19] VITALS: PULSE 69; PULSE 72
--- NOTE | 2023-02-08 11:56 | P.CONPHA_ITS ---
Pharmacy Intervention Comments: Discharge medication counseling complete. Patient was starting the following meds: -azithromycin: had been taking inpatient. Told her med could be taken with food to avoid stomach upset and/or diarrhea. -prednisone: told her that for a short course of steroids, most side effects were unlikely but could include stomach upset or headache. Said to take in the morning to avoid side affect of insomnia. Patient was told to stop doxycycline, which she had picked up several days before admission. Told her that, if she still had the bottle at home, dispose of the rest of the med and not take it. Patient had already had family pharmacy picking tech meds at preferred pharmacy. Patient verbalized understanding and had no further questions.
--- NOTE | 2023-02-09 14:44 | CARE MANAGER ---
Spoke with patient daughter for post-discharge phone interview, no issues noted.
== END 2023-02-08 12:13 | disposition home or self-care (01) ==
LOC: ER 06:03 → 2ND 07:59
PROVIDERS: Nurse Practitioner Critical Care Medicine; Admitting Provider Internal Medicine Adolescent Medicine; Emergency Provider Emergency Medicine; Visit Provider Internal Medicine Adolescent Medicine
DX: J44.1 Chronic obstructive pulmonary disease with (acute) exacerbation (principal); E11.9 Type 2 diabetes mellitus without complications; R32 Unspecified urinary incontinence; E03.9 Hypothyroidism, unspecified; E78.5 Hyperlipidemia, unspecified; I10 Essential (primary) hypertension; Z79.899 Other long term (current) drug therapy; Z79.4 Long term (current) use of insulin; G43.909 Migraine, unspecified, not intractable, without status migrainosus; F17.210 Nicotine dependence, cigarettes, uncomplicated; Z82.49 Family history of ischemic heart disease and other diseases of the circulatory system; R06.9 Unspecified abnormalities of breathing
CPT/HCPCS: G0378; 36415; 71045; 80048; 80053; 82962; 83036; 83605; 83880; 84443; 84484; 85025; 87040; 87581; 87632; 87636; 87798; 93005; 94640; 94760; 94761; 99285; C9803; J0456; J0696; U0003; U0005

== ENCOUNTER → 2023-04-22 13:05 | Outpatient (CLI) | payer MEDICARE, SELFPAY ==
--- NOTE | 2023-04-22 13:11 | XR_ITS ---
FINAL REPORT CLINICAL HISTORY: degenerative joint disease FINDINGS: Right hand Three views were obtained. There is no acute fracture or dislocation. There are mild degenerative changes of the 1st carpometacarpal joint. No soft tissue abnormality is identified. IMPRESSION: Degenerative changes as above. Reviewed, Interpreted and Dictated by Chriss Wilson III, MD Transcribed by Kasey Mcintyre Authenticated and [facility]
--- NOTE | 2023-04-22 13:11 | XR_ITS ---
FINAL REPORT CLINICAL HISTORY: ARTHRITIS FINDINGS: Left hand Three views were obtained. There is no acute fracture or dislocation. There are mild degenerative changes of the 1st carpometacarpal joint. No soft tissue abnormality is identified. IMPRESSION: Degenerative changes as above. Reviewed, Interpreted and Dictated by Chriss Wilson III, MD Transcribed by Kasey Mcintyre Authenticated and [facility]
--- NOTE | 2023-04-22 13:12 | XR_ITS ---
FINAL REPORT CLINICAL HISTORY: ARTHRITIS FINDINGS: Left shoulder Three views were obtained. There is no acute fracture or dislocation. There are mild degenerative changes of the acromioclavicular and glenohumeral joints. No soft tissue abnormality is identified. IMPRESSION: Mild degenerative changes. Reviewed, Interpreted and Dictated by Chriss Wilson III, MD Transcribed by Kasey Mcintyre Authenticated and [facility]
--- NOTE | 2023-04-22 13:12 | XR_ITS ---
FINAL REPORT CLINICAL HISTORY: degenerative joint disease FINDINGS: Right shoulder Three views were obtained. There is no acute fracture or dislocation. There are mild degenerative changes of the acromioclavicular and glenohumeral joints. No soft tissue abnormality is identified. IMPRESSION: Mild degenerative changes. Reviewed, Interpreted and Dictated by Chriss Wilson III, MD Transcribed by Kasey Mcintyre Authenticated and [facility]
== END ==
LOC: RAD 13:06
PROVIDERS: PCP Family Medicine; Visit Provider Internal Medicine Rheumatology
DX: M15.9 Polyosteoarthritis, unspecified (principal); M79.641 Pain in right hand; M79.642 Pain in left hand; M25.511 Pain in right shoulder; M25.512 Pain in left shoulder
CPT/HCPCS: 73030; 73130

== ENCOUNTER 2023-09-15 16:41 | Outpatient (CLI) | payer MEDICARE, SELFPAY ==
[2023-09-15 16:57] LABS: Chloride 105 mmol/L (98-107); Sodium 140 mmol/L (136-145)
[2023-09-15 16:59] LABS: Basophils # 0.1 K/mm3 (0-0.2); Basophils % 0.8 % (0.1-2.0); Eosinophils # 0.4 K/mm3 (0.0-0.4); Eosinophils % 4.5 % (0.1-12.0); Hematocrit 47.5 % (37.0-47.0); Lymphocytes # 2.5 K/mm3 (0.7-4.5); Lymphocytes % 29.6 % (10-50); Mean Corpuscular HGB Conc 31.7 g/dL (31.8-35.4); Mean Corpuscular Hemoglobin 30.6 pg (27.0-31.2); Mean Corpuscular Volume 96.5 fl (81-99); Monocytes # 0.7 K/mm3 (0.1-1.0); Monocytes % 7.8 % (1.7-9.3); Neutrophils # 4.9 K/mm3 (1.8-7.8); Neutrophils % 57.4 % (37.0-80.0); Platelet Count 308 K/mm3 (142-424); Red Blood Count 4.92 M/mm3 (4.20-5.40); Red Cell Distribution Width 14.6 % (11.5-17.5); White Blood Count 8.5 K/mm3 (4.8-10.8)
[2023-09-15 17:00] LABS: Alanine Aminotransferase 31 U/L (12-78); Albumin Level 3.8 g/dl (3.5-5.0); Albumin/Globulin Ratio 1.1 (1.1-1.8); Alkaline Phosphatase 147 U/L (38-126); Aspartate Amino Transferase 30 U/L (14-36); Bilirubin,Total 0.4 mg/dl (0.2-1.3); Blood Urea Nitrogen 12 mg/dl (7-17); Calcium 9.3 mg/dl (8.4-10.2); Carbon Dioxide 28 mmol/L (22.0-30.0); Chol/HDL Ratio 3.8 (1-3.5); Cholesterol 147 mg/dl (140-200); Estimated Glomerular Filt Rate 73 ml/min (>60); GFR (African American) 89 ML/MIN (>60); Globulin 3.4 g/dL (1.3-3.2); Glucose 132 mg/dl (74-100); HDL Cholesterol 39 mg/dl (40-60); Total Protein,Serum 7.2 g/dl (6.3-8.2); Triglycerides 228 mg/dl (30-150); VLDL Cholesterol 46 mg/dL (0-40)
[2023-09-15 17:05] LABS: Creatinine,Urine Random 78 mg/dL (Not Estab.)
[2023-09-15 17:09] LABS: Microalbumin/Creatinine Ratio 53.9
[2023-09-15 17:11] LABS: Direct LDL Cholesterol 33.09 mg/dL (100-129)
[2023-09-15 17:31] LABS: Thyroid Stimulating Hormone 9.54 uIU/mL (0.465-4.68)
== END 2023-09-15 23:59 ==
LOC: LAB.DROPOF 16:42
PROVIDERS: PCP Family Medicine; Visit Provider Family Medicine
DX: I10 Essential (primary) hypertension (principal); E11.9 Type 2 diabetes mellitus without complications; R53.83 Other fatigue; Z79.84 Long term (current) use of oral hypoglycemic drugs; Z79.899 Other long term (current) drug therapy
CPT/HCPCS: 80053; 80061; 82043; 82570; 83036; 84443; 85025

== ENCOUNTER 2023-10-18 11:43 | Outpatient (POV) | payer MEDICARE, SELFPAY | END 2023-10-18 23:59 | disposition home or self-care (01) | LOC: SC 11:44 | PROVIDERS: PCP Family Medicine; Visit Provider Dermatology | DX: Z00.00 Encounter for general adult medical examination without abnormal findings (principal) ==

== ENCOUNTER 2024-01-10 11:03 | Outpatient (POV) | payer MEDICARE, SELFPAY | END 2024-01-10 23:59 | disposition home or self-care (01) | LOC: SC 11:03 | PROVIDERS: PCP Family Medicine; Visit Provider Dermatology | DX: Z00.00 Encounter for general adult medical examination without abnormal findings (principal) ==

== ENCOUNTER 2024-01-26 08:59 | Outpatient (CLI) | payer MEDICARE, SELFPAY ==
--- NOTE | 2024-01-26 09:28 | CT_ITS ---
FINAL REPORT CLINICAL HISTORY: URINARY INCONTINENCE COMPARISON: None FINDINGS: Scarring is present in the left lung base. The liver is normal in size and attenuation. The gallbladder has been surgically resected. The spleen is unremarkable. The adrenals are normal. The pancreas is unremarkable. Tiny nonobstructing stones are present in the right kidney. No evidence of hydronephrosis is seen. The visualized bowel is unremarkable in appearance. The bladder is incompletely distended. There is a 2.1 cm irregularly marginated calcification which is either in the inferior aspect of the bladder, or in or adjacent to the proximal urethra. This is best seen on image #71 of series 602. IMPRESSION: 2.1 cm irregularly marginated calcification, either in the inferior aspect of the bladder, or in or adjacent to the proximal urethra as described. Would suggest [facility] for further evaluation to determine location. Tiny nonobstructing right renal stones without evidence of hydronephrosis in either kidney. Reviewed, Interpreted and Dictated by Quincy Kerr MD Transcribed by Sagrario Newby Authenticated and [facility]
[2024-01-26 09:37] LABS: Blood Urea Nitrogen 10 mg/dl (7-17); Estimated Glomerular Filt Rate 86 ml/min (>60); GFR (African American) 104 ML/MIN (>60)
[2024-01-26] MEDS: SODIUM CHLORIDE 0.9% 10ML SYR (RAD ONLY) 10 ML IV (10:12)
[2024-01-26] MEDS: IOPAMIDOL-370 (76%);100ML BOTTLE 75 ML IV (10:12)
== END 2024-01-26 23:59 | disposition home or self-care (01) ==
LOC: RAD 08:59
PROVIDERS: PCP Family Medicine; Visit Provider Nurse Practitioner Family
DX: N39.46 Mixed incontinence (principal)
CPT/HCPCS: 36415; 74178; 82565; 84520; Q9967

== ENCOUNTER 2024-11-15 10:34 | Outpatient (CLI) | payer MEDICARE, SELFPAY ==
[2024-11-15 18:09] LABS: Basophils # 0.1 K/mm3 (0-0.2); Basophils % 0.9 % (0.1-2.0); Eosinophils # 0.2 K/mm3 (0.0-0.4); Eosinophils % 2.3 % (0.1-12.0); Hematocrit 49.1 % (37.0-47.0); Hemoglobin 15.5 g/dL (12.2-16.2); Lymphocytes # 2.8 K/mm3 (0.7-4.5); Lymphocytes % 27.9 % (10-50); Mean Corpuscular HGB Conc 31.6 g/dL (31.8-35.4); Mean Corpuscular Volume 91.9 fl (81-99); Mean Platelet Volume 10.2 fl (7.4-10.4); Monocytes # 0.7 K/mm3 (0.1-1.0); Monocytes % 7.3 % (1.7-9.3); Neutrophils # 6.1 K/mm3 (1.8-7.8); Neutrophils % 61.3 % (37.0-80.0); Platelet Count 296 K/mm3 (142-424); Red Blood Count 5.34 M/mm3 (4.20-5.40); Red Cell Distribution Width 16.2 % (11.5-17.5)
[2024-11-15 19:01] LABS: Hemoglobin A1C 6.1 % (4.0-6.0)
[2024-11-15 19:25] LABS: Alanine Aminotransferase 28 U/L (12-78); Albumin Level 4.1 g/dl (3.5-5.0); Albumin/Globulin Ratio 1.5 (1.1-1.8); Alkaline Phosphatase 142 U/L (38-126); Aspartate Amino Transferase 44 U/L (14-36); Bilirubin,Total 0.3 mg/dl (0.2-1.3); Blood Urea Nitrogen 10 mg/dl (7-17); Calcium 9.1 mg/dl (8.4-10.2); Carbon Dioxide 23 mmol/L (22.0-30.0); Chloride 107 mmol/L (98-107); Chol/HDL Ratio 2.4 (1-3.5); Cholesterol 123 mg/dl (140-200); Estimated Glomerular Filt Rate 102 ml/min (>60); GFR (African American) 123 ML/MIN (>60); Globulin 2.7 g/dL (1.3-3.2); HDL Cholesterol 51 mg/dl (40-60); Sodium 138 mmol/L (136-145); Total Protein,Serum 6.8 g/dl (6.3-8.2); Triglycerides 193 mg/dl (30-150); VLDL Cholesterol 39 mg/dL (0-40)
[2024-11-15 19:40] LABS: 25-OH Vitamin D, Total 23.1 ng/mL (30-100)
[2024-11-15 20:31] LABS: Hepatitis C Ab Qual. W/ RFX NEGATIVE (Negative)
[2024-11-15 20:43] LABS: HIV Combo NEGATIVE (Negative)
[2024-11-15 20:51] LABS: Anion Gap 13.1 mEq/L (5-15); Potassium 5.1 mmoL/L (3.5-5.1)
[2024-11-15 21:22] LABS: Direct LDL Cholesterol < 30.00 mg/dL (100-129)
== END 2024-11-15 23:59 | disposition home or self-care (01) ==
LOC: LAB.DROPOF 11-16 10:04
PROVIDERS: PCP Family Medicine; Visit Provider Family Medicine
DX: I10 Essential (primary) hypertension (principal); E78.5 Hyperlipidemia, unspecified
CPT/HCPCS: 80053; 80061; 82306; 83036; 85025; 86803; 87389

== ENCOUNTER 2025-03-14 14:33 | Emergency (ER) | payer MEDICARE, SELFPAY ==
[2025-03-14] VITALS (12 sets, daily range): BP systolic 126–174; BP diastolic 66–98; PULSE 64–84; RESP 16–24; TEMP 36.8–36.9; O2SAT 87–97; BMI 47.9
--- OUTSIDE RECORDS SUMMARY | 2025-03-14 14:56 | XMS_ITS | Referral Summary ---
Author Organization [employer] ([place], [place], [place], [place]) Address [address] [place] [address] Care Team Providers Care Crossing Watchman Name Role Phone Unavailable Primary Care Provider Unavailabl e Social History Tobacco Use Types Packs/Day Years Used Date Smoking Tobacco: Never Assessed Comments Unknown Sex and Gender Information Value Date Recorded Sex Assigned at Not on file Legal Sex Female 6:40 PM CDT Gender Identity Not on file Sexual Orientation Not on file Plan of Treatment Not on file
--- OUTSIDE RECORDS SUMMARY | 2025-03-14 14:56 | XMS_ITS | Continuity of Care Document ---
Author Organization [facility] c, PAIN MEDICINE [address] Address [address] [place] [address] Care Team Providers Care Hogshead Head Matcher Name Role Phone BANDAR MARIANO Vest Presser LILY CHRIS Primary Care Provider [phone] Assessment Encounter Date Assessment Date Assessment LastModified by Organization Details LastModified Time 01/17/2025 01/17/2025 Plan: I have personally reviewed this patient's SUZETTE report as per [place] medical board guidelines and it was found to be appropriate. Patient signed pain management agreement per clinic policy. The medication is or continues to be in the best interest of patient centered care. Schedule II, III or IV medications were provided for symptom or disease control. Risks and benefits of such medications were discussed with the patient. Labs: The pt was not sent for urine drug testing today. The pt is prescribed chronic pain medication. The confirmation of urine testing on 05/05/23 was positive for hydrocodone, norhydrocodone, and hydromorphone. Appears appropriate. The confirmation of urine testing on 06/14/24 was positive for hydrocodone, norhydrocodone, hydromorphone, and gabapentin. Appears appropriate. Psychological Evaluation: The pt is being referred to the psychologist for evaluation of the chronic pain and risk assessment. The pt is aware of this. She states she thinks it is a good thing to have someone else to talk to. Injections: (From initial ov: The pt states she has had injections, specifically LESI's, in the past and they did not help her.) Physical Therapy/Activitie s/Exercise: We discussed exercises to strengthen her gluteal muscles and her thigh muscles. She does not want to leave her home, so I have recommended [employer]. She did look up exercises on [employer] for her shoulders. (From ov on 10/10/24: The pt states she has been doing her HEP, but not as often as she should.) (From ov on 10/06/23: The pt states she is doing a HEP and exercises from PT online. We did not discuss acupuncture.) (From ov on 06/08/23: Will send the pt a sheet with acupuncturists listed in no particular order-these are acupuncturists pts have seen.) (From ov on 05/10/23: We will discuss exercise at another visit. We did not have a list of acupuncturists to give to the pt, but will give her one at the next ov, or mail her one.) (From initial ov: She has been to PT in the past in [facility] and outpt [facility]. The PT did not help. We have discussed looking online at [facility] [employer] [facility], and online beginner chair yoga. I have suggested doing the [employer] exercises for 2-3 minutes for 3 days/wk and the chair yoga for about 2 minutes/day, or less, 2 days/wk. We have also discussed acupuncture and reflexology.) Medications: Will continue hydrocodone 10/325, 4x/day. Will increase gabapentin 300 mg, to 4/day. The pt will start with three for the first week, then will increase to 4/day. She is aware if the gabapentin causes her any problems to cut back to 2/day. The pt states she is not having any problems with the medications. She states she is able to get up and walk and states she is glad about that. (From ov on 06/14/24: The pt states she is doing the creams, exercises, etc, but still just can't do as much as she would like to do. Will increase the gabapentin to 300 mg, 2x/day.) (From ov on 05/16/24: Continue norco 7.5/325, 4x/day. Continue gabapentin 100 mg, 2/day. The pt states she does not have any problems with the medications. She states she is able to get up and walk to the bathroom with the medication.) (From ov on 06/08/23: The pt states the norco 5/325, 4x/day, is helping her, but not for long and she is still taking advil multiple times/day. We have discussed it and will increase the norco to 7.5/325, 4x/day. We have discussed topicals-she likes the anbesol roll-on. We have also discussed essential oils.) (From ov on 05/10/23: The pt has bought several different topicals to use. We will discuss again at the next ov. We have started norco 5/325, 1 tablet 4x/day. She has been on this dose, but has not been taking regularly bc she was almost out. We discussed the risks of opioids.)(From initial ov: We have discussed topical creams. I have advised the pt to use something over the counter that she likes. She does have psoriasis, so will make sure it does not aggravate her psoriasis. She is taking Taltz for the psoriasis. We also discussed opioids. The pt is taking norco 5/325, 4x/day. She states to make them last until she gets a new prescription she is not taking four every day. We will discuss the risks/dangers of opioids at her next ov. The pt is not prescribed pain medication until her next ov.) Dates:12/12-01/11/25. The pt switched to [facility]-closed on Sundays. Preventative Care: Lily Chris MD. Referring MD-Dr. Mariano. Return to Clinic in two months to f/u on the treatment plan. [email or web address] Not available 01/17/2025 12:35:07 Plan of Treatment Reminders Order Date Submit Date Provider Last Modified By Organization Details Last Modified Time Details Appointments RECHECK 2024 03:00P Kerri ANG MD Not available Not available Not available Lab None recorded. Referral None recorded. Procedures None recorded. Surgeries None recorded. Imaging None recorded. Medication Orders hydrocodo ne 10 mg-acetam inophen 325 mg tablet 2024 025 ELAINE [facility]oniac, [address] [place] [address], [place], [place], [phone], 01/20/2025 05:01:36 gabapenti n 300 mg capsule 2024 025 [facility], [address], [place], [id number], 02/16/2025 14:20:48 hydrocodo ne 10 mg-acetam inophen 325 mg tablet 2024 025 [facility], [address], [place], [phone], 02/16/2025 14:20:49 Patient TargetsNo targets recorded. Patient InstructionsNo instructions recorded. Reason for Referral None Reported. Problems Name Problem SNOMED Code Status Onset Date Resolution Date Notes Provider Name and Address Organization Details Recorded Time Pain of joint 57561032 [facility] 09:49:55 Problem Notes None recorded. Procedures Surgical History Date Name Laterality Status Provider Name and Address Organization Details Recorded Time 10/19/19 25 Injection, Joint; Shoulder completed Rabia Caputo [facility] 10/19/2024 13:09:56 07/25/20 20 Other completed [facility] 04/18/2023 08:31:24 08/17/20 18 procedure on tongue completed [facility] 04/18/2023 08:30:54 03/17/20 18 procedure on tongue completed [facility] 04/18/2023 08:30:42 05/03/20 17 breast procedure completed [facility] 04/18/2023 08:30:25 12/05/19 14 procedure on foot completed [facility] 04/18/2023 08:30:03 09/13/19 14 operative procedure on foot completed [facility] 04/18/2023 08:29:31 05/24/20 13 Other completed [facility] 04/18/2023 08:28:52 02/04/20 13 Other completed [facility] 04/18/2023 08:28:29 08/05/20 10 procedure on thigh completed [facility] 04/18/2023 08:28:01 04/23/20 10 procedure on thigh completed [facility] 04/18/2023 08:27:32 09/05/19 10 Other completed [facility] 04/18/2023 08:27:06 09/05/19 08 Oral surgery procedure completed [facility] 04/18/2023 08:25:44 09/05/19 08 procedure on ankle completed [facility] 04/18/2023 08:26:04 09/05/19 08 procedure on urinary bladder completed [facility] 04/18/2023 08:26:29 09/05/19 08 total knee replacement completed [facility] 04/18/2023 08:26:44 09/05/19 06 procedure on neck completed [facility] 04/18/2023 08:25:14 09/05/19 06 cholecystectomy completed [facility] 04/18/2023 08:25:29 09/05/19 04 procedure on lower leg completed [facility] 04/18/2023 08:24:55 09/05/18 94 Total hysterectomy completed [facility] 04/18/2023 08:24:31 09/05/18 85 section completed [facility] 04/18/2023 08:24:01 09/05/18 85 procedure on hand completed [facility] 04/18/2023 08:24:20 09/05/18 83 section completed [facility] 04/18/2023 08:23:52 Imaging Results None recorded. Procedure Notes None recorded. Medical Equipment None Reported. Allergies Allergen ID Allergen Name Allergen Category Reaction Reaction Severity Criticality Documentation Date Start Date Code Code System Note Provider Name and Address Organization Details Recorded Time 783441 Product containin g penicilli n (product) medicatio n Not available Not available Not available 04/18/2023 59471 8001 SNOMED [facility] 07:59:21 258800 Substance with sulfonami de structure and antibacte rial mechanism of action (substanc e) medicatio n Not available Not available Not available 04/18/2023 23343 8003 SNOMED Juju Burnham [facility] 3 07:59:26 051076 Toradol medicatio n Not available Not available Not available 04/18/2023 30319 RxNorm only at injec tion site Juju Burnham [facility] 3 07:59:42 Medications Name Sig Start Date Stop Date Status Note LastModified by Organization Details LastModified Time metformin 500 mg tablet Take 1 tablet twice a day by oral route. active Not Available Not Available No t Available levothyroxi ne 175 mcg tablet Take 1 tablet every day by oral route. active Not Available Not Available No t Available fluconazole 150 mg tablet Take by oral route. active Not Available Not Available No t Available sucralfate 1 gram tablet Take 1 tablet 4 times a day by oral route. active Not Available Not Available No t Available clobetasol 0.05 % topical cream APPLY A THIN LAYER TO THE AFFECTED AREA(S) BY TOPICAL ROUTE 2 TIMES PER DAY active Not Available Not Available No t Available Travel Motion Sickness (meclizine) 25 mg tablet Take 1 tablet 3 times a day by oral route. active Not Available Not Available No t Available hydrocodone 10 mg-acetamin ophen 325 mg tablet Take 1 tablet 4 times a day by oral route for 6 days. 01/20 completed Not Available Not Available Not Available pantoprazol e 20 mg tablet,kim yed release Take 2 tablets every day by oral route. active Not Available Not Available No t Available citalopram 20 mg tablet Take 1 tablet every day by oral route. active Not Available Not Available No t Available hydrocodone 7.5 mg-acetamin ophen 325 mg tablet Take 1 tablet 4 times a day by oral route for 30 days. 12/10 completed Not Available Not Available Not Available gabapentin 300 mg capsule Take 1 capsule in the am, 1 capsule in the afternoon , and 2 capsules at bedtime. 2024 active Not Available Not Available Not Avai lable montelukast 10 mg tablet Take 1 tablet every day by oral route. active Not Available Not Available No t Available lisinopril 5 mg tablet Take 1 tablet every day by oral route. active Not Available Not Available No t Available gabapentin 100 mg capsule Take 1 capsule 3 times a day by oral route for 30 days. 10/10 completed Not Available Not Available Not Available [place] 5 mg-325 mg tablet Take 1 tablet 4 times a day by oral route for 30 days. 08/08 completed Not Available Not Available Not Available topiramate 100 mg tablet Take 1 tablet twice a day by oral route. active Not Available Not Available No t Available hydroxyzine pamoate 25 mg capsule Take 1 capsule 4 times a day by oral route. active Not Available Not Available No t Available Botox 100 unit injection Take by injection route. active Not Available Not Available No t Available Nebu-Natalie 0.9 % aerosol inhaler Inhale by inhalatio n route. active Not Available Not Available No t Available rosuvastati n 20 mg tablet Take 1 tablet every day by oral route. active Not Available Not Available No t Available Vitamin C active Not Available Not Lizett ilable Not Available prednisone 03/15 completed Not Available Not Available Not Available Lantus Solostar U-100 Insulin active Not Available Not Available Not Available Myrbetriq 50 mg tablet,exte nded release Take 1 tablet every day by oral route. active Not Available Not Available No t Available Linzess 290 mcg capsule Take 1 capsule every day by oral route. active Not Available Not Available No t Available Jardiance 25 mg tablet Take 1 tablet every day by oral route. active Not Available Not Available No t Available Taltz Autoinjecto r (2 Pack) 80 mg/mL subcutaneou s Inject 1 mL every 4 weeks by subcutane ous route. active Not Available Not Available No t Available Vitals Date Recorded Body height Oxygen saturation Oxygen saturation in Arterial blood by Pulse oximetry Heart rate Systolic And Diastolic Provider Name and Address Organization Details Last Updated DateTime 5 167.64 cm 93 % 93 % 77 /min 126/84 mm[Hg] Jeannie Khan [facility] 5 09:06:02 Social History Question Answer Notes LastModified by Organizat ion Details LastModified Time Tobacco Smoking Status Current Every Day Smoker Jeannie Erin [facility] 06/14/2024 10:46:40 When Did You Quit Smoking? 1-5yearssinc elastcigaret te Information not available 06/08/2023 What Was The Date Of Your Most Recent Tobacco Screening? 01/17/2025 Information not available 01/17/2025 How Much Tobacco Do You Smoke? 1 PPD 1-2 Ppd Information not available 06/14/2024 How Many Years Have You Smoked Tobacco? 45 Information not available 06/08/2023 Sex: Female Functional Status Question Answer Note LastModified by Organization D etails LastModified Time What is your level of alcohol consumption? None [email or web address] Information not available 04/18/2023 Mental Status None recorded. Family History Nothing Reported. Medical History No medical history recorded. Gynecological HistoryNo gynecological history recorded. Obstetrics History GPAL:G 0 P 0 0 0 0 Past Encounters Encounter ID Performer Location Encounter Start Date Encounter Closed Date Diagnosis/Indication Diagnosis SNOMED-CT Code Diagnosis ICD10 Code Diagnosis Note [id number] BRISEYDA ANG MD PAIN MEDICINE [address] [place] [address] 01/17/2025 08:36:13 01/17/2025 09:23:22 Pain of multiple joints 84449406 M25.50 Osteoarthr itis of multiple joints 185637222 M15.9 Chronic low back pain 27 3133295 M54.50 M54.51 Degenerati on of lumbar intervertebral disc 91735816 M51.362 Abnormal gait 33105787 R 26.9 Pain of le ft shoulder joint 8914390717 1455267 M25.512 Will order an injection of left shoulder joint. Health Concerns Section Related Observation LastModified by Organization Detai ls LastModified Time None Recorded Concern Status LastModified by Organization Details LastModified Time None Recorded Payers Encounter Date Sequence Insurance Name Policy Number Policy Hayes Covered Member ID Hayes Member ID Guarantor Name 01/17/2025 1 [employer] - GOLD PLUS (MEDICARE REPLACEMENT/A DVANTAGE - HMO) Debbie Pagan [id number] Debbie Pagan Notes Date Note Type Note Provider Name and Address Organization Details Recorded Time 01/17/2025 text/html The pt complains of multi-joint pain and low back pain. The pt states her neuropathic pain is worse and she is having pain at the top of her gluteal area and her low back. (From ov on 12/10/24: The pt underwent a left shoulder injection on 10/19/24. She states it did not give her much relief. She asked for a telehealth visit due to problems with hypoglycemia today and pt states the whole weekend.) (From ov on 10/10/24: The pt is also c/o bilateral shoulder pain, but left is greater than right. She has undergone joint injections in her knees before and those injections did help, at first.) (From ov on 09/12/24: The pt is having a telehealth due to the weather conditions. The pt did not have any new complaints.) (From ov on 06/14/24: The pt states she is having pain and is not able to do as much as she would like to do. She states she is using all of the creams, essential oils, and exercises, and is still having pain. She was wondering what else to do.) (From ov on 05/16/24: The pt requested a telehealth due to being ill. She states the grandkids are bringing it in from school, and she states she has had the shingles.) (From ov on 03/15/24: The pt states she is feeling bad, but had the GI virus multiple times when her children and grandchildren would bring it back in to her.) (From ov on 11/29/23: The pt states she was feeling hot and nauseous. She states she did not feel like that when she started out today. She did not want any water or soft drink. She did look better by the end of the visit.) (From ov on 10/06/23: The pt states she is hurting, believes it may be due to the cold weather. She would like to try the gabapentin.) (From ov on 08/08/23: She states her worst pain today is her right shoulder. She denies any trauma to her right shoulder. She states the x-rays just show arthritis. She states she is doing her HEP and PT from online.) (From initial ov: The pt states she had a SCS placed in ID, it was removed and then Dr. Riddle placed another SCS. She states the SCS did not help and it was removed. She states she then saw Dr. Mayfield, had HUMAIRA's, and a trial for the pain pump, but the pain pump did not help her pain. She had a surgery on her tongue, was prescribed pain medication by the surgeon, and Dr. Mayfield discharged her. She states she has a h/o a cervical fusion, she is unsure which levels. She has had left ankle sx, a right TKA, and sx on her right toe. She has been dxed with multijoint OA. She also has a PMH which includes DM, hypothyroidism, depression, htn, DPN, and hypercholesterol. She has a walker at home and also a hemiwalker. She states she has fallen when using both of those. She does have assistance from her daughter and her grandson to ambulate.) (Previously, The pt states she does have bladder incontinence and is being referred to a dcv-xbquaefyl-jwdg she sees in 09/2023-r/s from 06/2023.) From previous ov: The pt did see the zdm-swbdfpzlv-peoic ed her on creams, will go back for f/u and an additional study.) Today, the pt states no changes with her B/B. The pt is sleeping 3 hours per night. The pt is not working. The pt reports that she has not fallen since her last ov. The pt was accompanied by her at today's ov.Etoh-Denied. Tobacco--Denied. XWV-Bkqzjv-axg tried in the past. BRISEYDA ANG MD [address] [place], [address], [facility] 01/17/2025 12:35:35 OBGyn Episode No OBEpisode recorded.
--- OUTSIDE RECORDS SUMMARY | 2025-03-14 14:56 | XMS_ITS | Encounter Summary ---
Author Organization Healthcare Address [address] [place] [address] Care Team Providers Care Payroll Secretary Name Role Phone Amanda Morris Primary Care Provider [phone] Encounter Details Date Type Department Care Team (Late st Contact Info) Description 01/26/2024 Orders Only External Location [address] [place] [address] Kath Arteaga APRN, TINO [address] [facility] [address] [place] [address] Social History Tobacco Use Types Packs/Day Years Used Date Smoking Tobacco: Former Cigarettes Q uit: 2022 Passive Smoke Exposure: Yes Smokeless Tobacco: Never Alcohol Use Standard Drinks/Week Comments No 0 (1 standard drink = 0.6 oz pur e alcohol) PHQ-2 Answer Date Recorded Patient Health Questionnaire-2 Score 0 09/22/2023 Comments Unknown Sex and Gender Information Value Date Recorded Sex Assigned at Not on file Legal Sex Female 7:46 PM EDT Gender Identity Not on file Sexual Orientation Not on file documented as of this encounter Plan of Treatment Not on file documented as of this encounter Procedures Procedure Name Priority Date/Time Associated Diagnosis Comments CT OUTSIDE IMAGES 01/26/2024 9:57 AM EDT documented in this encounter Results * CT OUTSIDE IMAGES (01/26/2024 9:57 AM EDT) Anatomical Region Laterality Modality Computed Tomogra phy 01/26/2024 9:57 AM EDT Kath Arteaga APRN, TINO IMG CT PROCEDURES Final Result documented in this encounter Visit Diagnoses Not on filedocumented in this encounter Additional Health Concerns Assessment Noted Time A Body Mass Index follow-up plan has been documented for the patient 09/23/2023 3:37 PM EST documented as of this encounter Care Teams Payroll Secretary Relationship Specialty Start Date End Date Amanda Morris PA [address] [place] [address] [place] [address] PCP - General 01/16/21 documented as of this encounter
--- OUTSIDE RECORDS SUMMARY | 2025-03-14 14:56 | XMS_ITS | Clinical Summary ---
Author Organization [employer] ([place], [place], [place], [place]) Address [address] [place] [address] Care Team Providers Care Splicing Technician Name Role Phone Unavailable Primary Care Provider [...]
--- OUTSIDE RECORDS SUMMARY | 2025-03-14 14:56 | XMS_ITS | Data Portability ---
Author Organization [facility] Address [address] [place] [address] Care Team Providers Care Ux Developer Name Role Phone BANDAR MARIANO Pet Stylist LILY CHRIS Primary Care Provider Assessment Encounter Date Assessment Date Assessment LastModified by Organization Details LastModified Time 09/12/2024 09/12/2024 Plan: I have personally reviewed this patient's SUZETTE report as per [place] medical board guidelines and it was found [...] not help her.) Physical Therapy/Activitie s/Exercise: We did not discuss exercise, today. (From ov on 10/06/23: The pt states [...] been to PT in the past in [facility] and outpt [facility]. The PT did [...] reflexology.) Medications: Will continue hydrocodone 10/325, 4x/day. Continue gabapentin 300 mg, 2x/day. The pt states she is not having any problems with the medications. She states she is able to get up and walk, help her daughter in the kitchen some, and play with the grandboys. (From ov on 06/14/24: The pt states [...] prescribed pain medication until her next ov.) Dates: 09/13-10/13/24-The pt switched to [facility] for this ov secondary to the weather. Preventative Care: Lily Chris MD. Referring MD-Dr. Mariano. Return to Clinic in one month to f/u on the treatment plan. eflinchum Not available 09/12/2024 11:11:10 10/10/2024 10/10/2024 Plan: I have personally reviewed this patient's SUZETTE report as per [place] medical board guidelines and it was found [...] did not help her.) Physical Therapy/Activitie s/Exercise: The pt states she has been doing her HEP, but not as often as she should. (From ov on 10/06/23: The pt states [...] been to PT in the past in [facility] and outpt [facility]. The PT did [...] reflexology.) Medications: Will continue hydrocodone 10/325, 4x/day. Continue gabapentin 300 mg, 2x/day. The pt states she is not having any problems with the medications. She states she is able to get up and walk, help her daughter in the kitchen some, and play with the grandboys. She states this is better than just lying around all of the time. (From ov on 06/14/24: The pt states [...] prescribed pain medication until her next ov.) Dates: 10/13-11/12-12/12/24. The pt switched to [facility] for this ov secondary to the weather. Preventative Care: Lily Chris MD. Referring MD-Dr. Mariano. Return to Clinic in one month to f/u on the treatment plan. eflinchum Not available 10/10/2024 13:19:15 12/10/2024 12/10/2024 Plan: I have personally reviewed this patient's SUZETTE report as per [place] medical board guidelines and it was found [...] not help her.) Physical Therapy/Activitie s/Exercise: We did not discuss exercise. (From ov on 10/10/24: The pt states [...] been to PT in the past in [facility] and outpt [facility]. The PT did [...] reflexology.) Medications: Will continue hydrocodone 10/325, 4x/day. Continue gabapentin 300 mg, 2x/day. The pt states she is not having [...] next ov.) Dates:12/12-01/11/25. The pt switched to [facility]-closed on Sundays. Preventative Care: Lily Chris MD. Referring MD-Dr. Mariano. Return to Clinic in one month to f/u on the treatment plan. eflinchum Not available 12/10/2024 11:59:52 01/17/2025 01/17/2025 Plan: I have personally reviewed this patient's SUZETTE report as per [place] medical board guidelines and it was found [...] been to PT in the past in [facility] and outpt [facility]. The PT did [...] next ov.) Dates:12/12-01/11/25. The pt switched to [facility]-closed on Sundays. Preventative Care: Lily Chris MD. Referring MD-Dr. Mariano. Return to Clinic in two months to f/u on the treatment plan. eflinchum Not available 01/17/2025 12:35:07 Plan of Treatment Reminders Order Date Submit Date Provider Last Modified By Organization Details Last Modified Time Details Appointments RECHECK 2024 03:00P M BRISEYDA PAGE MD Not available Not available Not available Lab None recorded. Referral None recorded. Procedures None recorded. Surgeries None recorded. Imaging None recorded. Medication Orders hydrocodo ne 10 mg-acetam inophen 325 mg tablet 2024 025 [facility], [address] [place] [address], [id number], 01/20/2025 05:01:36 gabapenti n 300 mg capsule 2024 025 [facility], [address] [place] [address], [id number], 02/16/2025 14:20:48 hydrocodo ne 10 mg-acetam inophen 325 mg tablet 2024 025 [facility], [address] [place] [address], [id number], 02/16/2025 14:20:49 hydrocodo ne 10 mg-acetam inophen 325 mg tablet 2024 025 [facility], [address] [place] [address], [id number], 01/20/2025 05:01:36 gabapenti n 300 mg capsule 2024 025 [facility], [address] [place] [address], [id number], 12/12/2024 17:18:50 hydrocodo ne 10 mg-acetam inophen 325 mg tablet 2024 025 [facility], [address] [place] [address], [id number], 01/20/2025 05:01:36 gabapenti n 300 mg capsule 2024 025 [facility], [address] [place] [address], [id number], 11/12/2024 14:30:21 hydrocodo ne 10 mg-acetam inophen 325 mg tablet 2024 025 [facility], [address] [place] [address], [id number], 01/20/2025 05:01:36 hydrocodo ne 10 mg-acetam inophen 325 mg tablet 2024 025 [facility], [address] [place] [address], [id number], 01/20/2025 05:01:36 gabapenti n 300 mg capsule 2024 025 [facility], [address] [place] [address], [id number], 09/13/2024 15:46:31 Patient TargetsNo targets recorded. Patient InstructionsNo instructions recorded. Reason for Referral None Reported. Problems Name Problem SNOMED Code Status Onset Date Resolution Date Notes Provider Name and Address Organization Details Recorded Time [facility] 25634028 [facility] 09:49:55 Problem Notes None recorded. Procedures Surgical History Date Name Laterality Status Provider Name and Address Organization Details Recorded Time 10/19/19 25 Injection, Joint; Shoulder completed Rabia Caputo [facility] 10/19/2024 13:09:56 07/25/20 20 Other completed [facility] 04/18/2023 08:31:24 08/17/20 18 procedure on tongue completed [facility] 04/18/2023 08:30:54 03/17/20 18 procedure on tongue completed [facility] 04/18/2023 08:30:42 05/03/20 17 breast procedure completed Juju Burnham [facility] 04/18/2023 08:30:25 12/05/19 14 procedure on foot completed Jujuog Burnham [facility] 04/18/2023 08:30:03 09/13/19 14 operative procedure on foot completed Juju [place] 04/18/2023 08:29:31 05/24/20 13 Other completed Jujuog Burn[place] [facility] 04/18/2023 08:28:52 02/04/20 13 Other completed Jujuog Burn[place] [facility] 04/18/2023 08:28:29 08/05/20 10 procedure on thigh completed Juju [place] [facility] 04/18/2023 08:28:01 04/23/20 10 procedure on thigh completed Juju [place] [facility] 04/18/2023 08:27:32 09/05/19 10 Other completed Juju [place] [facility] 04/18/2023 08:27:06 09/05/19 08 Oral surgery procedure completed Juujog [place] 04/18/2023 08:25:44 09/05/19 08 procedure on ankle completed Jujuog [place] [facility] 04/18/2023 08:26:04 09/05/19 08 procedure on urinary bladder completed Jujuog [place] [facility] 04/18/2023 08:26:29 09/05/19 08 total knee replacement completed Juju [place] [facility] 04/18/2023 08:26:44 09/05/19 06 procedure on neck completed Juju [facility] 04/18/2023 08:25:14 09/05/19 06 cholecystectomy completed Jujuog [place] 04/18/2023 08:25:29 09/05/19 04 procedure on lower leg completed Juju [facility] 04/18/2023 08:24:55 09/05/18 94 Total hysterectomy completed Juju [facility] 04/18/2023 08:24:31 09/05/18 85 section completed Juju [facility] 04/18/2023 08:24:01 09/05/18 85 procedure on hand completed Ju[facility] 04/18/2023 08:24:20 09/05/18 83 section completed Ju[facility] 04/18/2023 08:23:52 Imaging Results None recorded. Procedure Notes None recorded. Medical Equipment None Reported. Allergies Allergen ID Allergen Name Allergen Category Reaction Reaction Severity Criticality Documentation Date Start Date Code Code System Note Provider Name and Address Organization Details Recorded Time 318044 Product containin g penicilli n (product) medicatio n Not available Not available Not available 04/18/2023 55217 8001 SNOMED [facility] 3 07:59:21 669068 Substance with sulfonami de structure and antibacte rial mechanism of action (substanc e) medicatio n Not available Not available Not available 04/18/2023 68976 8003 SNOMED [facility] 3 07:59:26 329056 Toradol medicatio n Not available Not available Not available 04/18/2023 06685 RxNorm only at injec tion site [facility] 3 07:59:42 Medications Name Sig Start Date [...] day by oral route for 6 days. 05/05/ 2025 05/18 /2025 completed Not Available Not Available Not Available [...] completed Not Available Not Available Not Available Snyder 5 mg-325 mg tablet Take 1 tablet [...] t Available Vitals Date Recorded Body height Provider Name an d Address Organization Details Last Updated DateTime 09/12/2024 167.64 cm Jeannieyumiko Khan [facility] 09/12/2024 10:08:03 Date Recorded Body height Oxygen saturation Oxygen saturation in Arterial blood by Pulse oximetry Heart rate Systolic And Diastolic Provider Name and Address Organization Details Last Updated DateTime 167.64 cm 95 % 95 % 90 /min 134/88 mm[Hg] Jeannieyumiko Khan [facility] 09:32:50 Date Recorded Body height Provider Name an d Address Organization Details Last Updated DateTime 10/19/2024 167.64 [facility] 12:57:05 Date Recorded Body height Provider Name an d Address Organization Details Last Updated DateTime 12/10/2024 [facility] 11:35:36 Date Recorded Body height Oxygen saturation Oxygen saturation in Arterial blood by Pulse oximetry Heart rate Systolic And Diastolic Provider Name and Address Organization Details Last Updated DateTime 167.64 cm 93 % 93 % 77 /min 126/84 mm[Hg] Jeannieyumiko Khan [facility] 09:06:02 Social History Question Answer Notes LastModified by Organizat ion Details LastModified Time Tobacco Smoking Status Current Every Day Smoker Jeannieyumiko Khan [facility] 06/14/2024 10:46:40 When Did You Quit [...] is your level of alcohol consumption? None [email or web address] Information not available 04/18/2023 Mental Status None recorded. Family History Nothing Reported. Medical History No medical history recorded. Gynecological HistoryNo gynecological history recorded. Obstetrics History GPAL:G 0 P 0 0 0 0 Past Encounters Encounter ID Performer Location Encounter Start Date Encounter Closed Date Diagnosis/Indication Diagnosis SNOMED-CT Code Diagnosis ICD10 Code Diagnosis Note [id number] BANDAR MARIANO MD [facility] [address] [place] [address] 04/18/2023 07:22:58 04/19/2023 04:17:23 Generalized osteoarthritis 724306734 M15.9 Generalize d osteoarthr itis.Degen erative joint disease involving bilateral hands, shoulders, back, hips, knees, ankle and feet. She is s/p cervical spine fusion along with right knee replacemen t. Even though she has psoriasis she does not have any clinical evidence of psoriatic arthritis or inflammato ry joint disease. Her pains are mechanical in nature further aggravated by morbid obesity beside chronic diabetes. She also has element of peripheral neuropathy with numbness and tingling in extremitie s but no radicular features were noted. Her pains are 10 out of 10 most of the time although at times they can go down to 6 or 7 out of 10. However unfortunat eladio she is always in pain. I have discussed my impression findings with the patient.X- rays ordered bilateral hands and shoulders to determine severity. She is suggested to maintain her dermatolog y evaluation and treatment including Taltz for psoriasis. I will schedule her to see with our pain management . I do not see need for any further rheumatolo gy evaluation . Chronic pain syndrome 37 2801174 G89.4 Chronic pain syndrome with allodynia and hyperalges ia. Further aggravated by chronic diabetes, peripheral neuropathy , peripheral neuropathy and generalize d osteoarthr itis. On account of chronic nature for mechanical pain with comorbid conditions she will be served in our chronic pain management clinic. Discussed with the patientRef er to Dr. Page. [id number] BRISEYDA PAGE MD [facility] [address] [place] [address] 05/05/2023 12:26:24 05/05/2023 14:02:19 Pain of multiple joints 38610263 M25.50 Osteoarthr itis of multiple joints 353247552 M15.9 Chronic low back pain 27 1598650 M54.50 Degenerati on of lumbar intervertebral disc 61620088 M51.36 Abnormal gait 96188265 R 26.9 [id number] BRISEYDA PAGE MD [facility] [address] [place] [address] 1 05/10/2023 10:32:13 05/10/2023 11:40:53 Pain of multiple joints 78793705 M25.50 Osteoarthr itis of multiple joints 518888057 M15.9 Chronic low back pain 27 9964685 M54.50 M54.51 Degenerati on of lumbar intervertebral disc 75842626 M51.36 Abnormal gait 41547565 R 26.9 [id number] BRISEYDA APGE MD [facility] [address] [place] [address] 1 06/08/2023 12:53:14 06/08/2023 14:03:29 Pain of multiple joints 09835962 M25.50 Osteoarthr itis of multiple joints 455603322 M15.9 Chronic low back pain 27 3211633 M54.50 M54.51 Degenerati on of lumbar intervertebral disc 90116902 M51.36 Abnormal gait 99804030 R 26.9 [id number] BRISEYDA PAGE MD [facility] [address] [place] [address] 1 08/08/2023 09:56:43 08/08/2023 10:22:26 Pain of multiple joints 50064621 M25.50 Osteoarthr itis of multiple joints 163872407 M15.9 Chronic low back pain 27 9471178 M54.50 M54.51 Degenerati on of lumbar intervertebral disc 43687705 M51.36 Abnormal gait 25801154 R 26.9 [id number] BRISEYDA PAGE MD [facility] [address] [place] [address] 1 10/06/2023 09:59:18 10/06/2023 10:46:59 Pain of multiple joints 89390037 M25.50 Osteoarthr itis of multiple joints 783648197 M15.9 Chronic low back pain 27 8051796 M54.50 M54.51 Degenerati on of lumbar intervertebral disc 62047336 M51.36 Abnormal gait 22832773 R 26.9 [id number] BRISEYDA PAGE MD [facility] [address] [place] [address] 1 11/29/2023 09:31:34 11/29/2023 10:47:52 Pain of multiple joints 96682193 M25.50 Osteoarthr itis of multiple joints 362387350 M15.9 Chronic low back pain 27 5505074 M54.50 M54.51 Degenerati on of lumbar intervertebral disc 32037515 M51.36 Abnormal gait 83966379 R 26.9 [id number] BRISEYDA PAGE MD [facility] [address] [place] [address] 1 01/26/2024 13:16:21 01/26/2024 13:36:12 Pain of multiple joints 02465185 M25.50 Osteoarthr itis of multiple joints 909102728 M15.9 Chronic low back pain 27 4108815 M54.50 M54.51 Degenerati on of lumbar intervertebral disc 72151900 M51.36 Abnormal gait 24696673 R 26.9 [id number] BRISEYDA PAGE MD [facility] [address] [place] [address] 1 03/15/2024 09:27:44 03/15/2024 10:16:22 Pain of multiple joints 55729710 M25.50 Osteoarthr itis of multiple joints 668825649 M15.9 Chronic low back pain 27 7023198 M54.50 M54.51 Degenerati on of lumbar intervertebral disc 03827474 M51.36 Abnormal gait 18030410 R 26.9 [id number] BRISEYDA PAGE MD [facility] [address] [place] [address] 1 05/16/2024 14:30:05 05/16/2024 14:54:07 Pain of multiple joints 83836386 M25.50 Osteoarthr itis of multiple joints 919742696 M15.9 Chronic low back pain 27 5273138 M54.50 M54.51 Degenerati on of lumbar intervertebral disc 51614674 M51.36 Abnormal gait 01862067 R 26.9 [id number] BRISEYDA PAGE MD [facility] [address] [place] [address] 1 06/14/2024 10:08:40 06/14/2024 10:57:55 Pain of multiple joints 48126704 M25.50 Osteoarthr itis of multiple joints 425720093 M15.9 Chronic low back pain 27 5387252 M54.50 M54.51 Degenerati on of lumbar intervertebral disc 76019136 M51.362 Abnormal gait 46841281 R 26.9 [id number] BRISEYDA PAGE MD [facility] [address] [place] [address] 1 08/09/2024 16:02:20 08/09/2024 16:11:21 Pain of multiple joints 04905215 M25.50 I have called and cancelled the three prescripti ons dated for June and July. Osteoarthr itis of multiple joints 493817089 M15.9 Chronic low back pain 27 3208114 M54.50 M54.51 Degenerati on of lumbar intervertebral disc 51686021 M51.362 Abnormal gait 43925030 R 26.9 [id number] BRISEYDA PAGE MD [facility] [address] [place] [address] 1 09/12/2024 10:03:33 09/12/2024 11:07:06 Pain of multiple joints 18660532 M25.50 Osteoarthr itis of multiple joints 468458208 M15.9 Chronic low back pain 27 4473996 M54.50 M54.51 Degenerati on of lumbar intervertebral disc 98420247 M51.362 Abnormal gait 67957772 R 26.9 [id number] BRISEYDA PAGE MD [facility] [address] [place] [address] 1 10/10/2024 09:22:14 10/10/2024 09:37:11 Pain of multiple joints 59840194 M25.50 Osteoarthr itis of multiple joints 985838682 M15.9 Chronic low back pain 27 8668401 M54.50 M54.51 Degenerati on of lumbar intervertebral disc 75295187 M51.362 Abnormal gait 48586718 R 26.9 Pain of le ft shoulder joint 2022073240 2376426 M25.512 Will order an injection of left shoulder joint. [id number] PRESTON DUARTE MD [facility] CLOS[facility] [place] [address] 1 10/19/2024 12:49:32 10/19/2024 13:10:05 Pain of left shoulder joint 1663535481 9388849 M25.512 [id number] BRISEYDA PAGE MD [facility] [address] [place] [address] 12/10/2024 11:32:02 12/10/2024 12:42:42 Pain of multiple joints 17197838 M25.50 Osteoarthr itis of multiple joints 332500686 M15.9 Chronic low back pain 27 0263584 M54.50 M54.51 Degenerati on of lumbar intervertebral disc 11440650 M51.362 Abnormal gait 54497132 R 26.9 Pain of le ft shoulder joint 8553488233 8172397 M25.512 Will order an injection of left shoulder joint. [id number] BRISEYDA PAGE MD [facility] [address] [place] [address] 01/17/2025 08:36:13 01/17/2025 09:23:22 Pain of multiple joints 76250562 M25.50 Osteoarthr itis of multiple joints 925242363 M15.9 Chronic low back pain 27 2396358 M54.50 M54.51 Degenerati on of lumbar intervertebral disc 16570850 M51.362 Abnormal gait 93996255 R 26.9 Pain of le ft shoulder joint 2610049214 7250828 M25.512 Will order an injection of left shoulder joint. Health Concerns Section Related Observation LastModified by Organization Detai ls LastModified Time None Recorded Concern Status LastModified by Organization Details LastModified Time None Recorded Advance Directives Directive None Recorded Payers Insurance Date Sequence Insurance Name Policy Number Policy Hayes Covered Member ID Hayes Member ID Guarantor Name 06/18/2024 1 [place] Debbie Pagan [id number] Debbie Pagan 06/18/2024 1 [place] Debbie Pagan [id number] Debbie Pagan 06/18/2024 1 [employer] (MEDICARE REPLACEMENT/A DVANTAGE - PPO) Debbie Pagan [id number] Debbie Pagan 03/11/2025 1 [employer] - GOLD PLUS (MEDICARE REPLACEMENT/A DVANTAGE - HMO) Debbie Pagan [id number] Debbie Pagan Notes Date Note Type Note Provider Name and Address Organization Details Recorded Time 09/12/2024 text/html Visit today is b eing conducted via telehealth using both audio/video. The patient confirms that he/she is physically located in [place] at the time of this visit. Patient expressed understanding of audio/video telehealth as a billable visit and has consented. Patient also expressed understanding that not every condition can be appropriately addressed via telehealth and that this telehealth visit may need to be converted to an in-person visit or may even result in a recommendation to go to the E.R. at the provider s discretion in order to provide the best possible care. The pt complains of multi-joint pain and low back pain. The pt is having a telehealth due to the weather conditions. The pt did not have any new complaints. (From ov on 06/14/24: The pt states [...] states she [place] SCS placed in [place], it was removed and then Dr. Riddle [...] incontinence and is being referred to a wat-stkzlhazm-wmsg she sees in 09/2023-r/s from 06/2023.) From previous ov: The pt did see the bvz-zmtzddrqx-nqiphs d her on creams, will go back for f/u and an additional study.) Today, the pt states no changes with her B/B. The pt is sleeping 3 hours per night. The pt is not working. The pt reports that she has not fallen since her last ov. The pt was alone on the telehealth ov.Etoh-Denied. Tobacco--Denied. NFH-Ztctrk-vyy tried in the past. BRISEYDA PAGE MD [facility] [place], [phone], [facility] 09/12/2024 11:12:46 10/10/2024 text/html The pt complains of multi-joint pain and low back pain. The pt is also c/o bilateral shoulder pain, but left is greater than right. She has undergone joint injections in her knees before and those injections did help, at first. (From ov on 09/12/24: The pt is [...] states she had a [place]CS placed in [place], it was removed and then Dr. Riddle [...] incontinence and is being referred to a sib-ltuzhtrog-fixk she sees in 09/2023-r/s from 06/2023.) From previous ov: The pt did see the itw-okhtinngp-jtljfx d her on creams, will go back for f/u and an additional study.) Today, the pt states no changes with her B/B. The pt is sleeping 3 hours per night. The pt is not working. The pt reports that she has not fallen since her last ov. The pt was alone at today's office visit.Etoh-Denied. Tobacco--Denied. TSY-Whbuoy-fal tried in the past. BRISEYDA PAGE MD [address] [place] [address], [phone], [facility] 10/10/2024 13:21:49 12/10/2024 text/html Visit today is b eing conducted via telehealth using both audio/video. The patient confirms that he/she is physically located in [place] at the time of this visit. Patient expressed understanding of audio/video telehealth as a billable visit and has consented. Patient also expressed understanding that not every condition can be appropriately addressed via telehealth and that this telehealth visit may need to be converted to an in-person visit or may even result in a recommendation to go to the E.R. at the provider s discretion in order to provide the best possible care. The pt complains of multi-joint pain and low back pain. The pt underwent a left shoulder injection on 10/19/24. She states it did not give her much relief. She asked for a telehealth visit due to problems with hypoglycemia today and pt states the whole weekend. (From ov on 10/10/24: The pt is [...] states [place]CS placed in [place], it was removed and then Dr. Riddle [...] incontinence and is being referred to a hvy-tlgkiamvq-enei she sees in 09/2023-r/s from 06/2023.) From previous ov: The pt did see the pnx-ropevwsng-yacuuh d her on creams, will go back for f/u and an additional study.) Today, the pt states no changes with her B/B. The pt is sleeping 3 hours per night. The pt is not working. The pt reports that she has not fallen since her last ov. The pt was alone on today's telehealth ov.Etoh-Denied. Tobacco--Denied. XJL-Pyxfhu-fqx tried in the past. BRISEYDA PAGE MD [address] [place] [address], [phone], [facility] 12/10/2024 12:01:32 01/17/2025 text/html The pt complains of multi-joint [...] states she had a SCS placed in [place], it was removed and then Dr. Riddle [...] incontinence and is being referred to a grx-gupioonvl-ncsv she sees in 09/2023-r/s from 06/2023.) From previous ov: The pt did see the bhi-aorzbdaoi-erlgax d her on creams, will go back for f/u and an additional study.) Today, the pt states no changes with her B/B. The pt is sleeping 3 hours per night. The pt is not working. The pt reports that she has not fallen since her last ov. The pt was accompanied by her at today's ov.Etoh-Denied. Tobacco--Denied. XYQ-Jqzqxl-zxa tried in the past. BRISEYDA PAGE MD [address] [place] [address], [phone], [facility] [facility] 01/17/2025 12:35:35 OBGyn Episode No OBEpisode recorded.
--- OUTSIDE RECORDS SUMMARY | 2025-03-14 14:56 | XMS_ITS | Encounter Summary ---
Author Organization [facility] ([place], [place], [place], [place]) Address [address] [place] [address] Care Team Providers Care Radio Talk Show Host Name Role Phone Unavailable Primary Care Provider Unavailabl e Encounter Details Date Type Department Care Team (Late st Contact Info) Description 10/30/2019 Transcribed Document [facility] [place] Family Medicine [address] [place] [address] ProviderKevin MD [address], [place] [id number] Social History Tobacco Use Types Packs/Day Years Used Date Smoking Tobacco: Never Assessed Comments Unknown Sex and Gender Information Value Date Recorded Sex Assigned at Not on file Legal Sex Female 6:40 PM CDT Gender Identity Not on file Sexual Orientation Not on file documented as of this encounter Miscellaneous Notes * Cerner Conversion Note - Kevin ProviderMD - 10/30/2019 5:38 PM 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
--- OUTSIDE RECORDS SUMMARY | 2025-03-14 14:56 | XMS_ITS | Encounter Summary ---
Author Organization [employer] ([place], [place], [place], [place]) Address [address] [place] [address] Care Team Providers Care Snow Removal Supervisor Name Role Phone Unavailable Primary Care Provider Unavailabl e Encounter Details Date Type Department Care Team (Late st Contact Info) Description 10/30/2019 Transcribed Document [facility] [place] Medicine [address] [place] [address] ProviderKevin MD [address] [place] [phone] Social History Tobacco Use Types Packs/Day Years Used Date Smoking Tobacco: Never Assessed Comments Unknown Sex and Gender Information Value Date Recorded Sex Assigned at Not on file Legal Sex Female 6:40 PM CDT Gender Identity Not on file Sexual Orientation Not on file documented as of this encounter Miscellaneous Notes * Cerner Conversion Note - Kevin ProviderMD - 10/30/2019 5:38 PM 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 Seen at [facility] c labs/CT/CXR - dx c anxiety/UDS + for fentanyl. Pt thinks UDS r/t excess benadryl. PCP told to come for poss blood clot. Stopped doxepin. Triage Date/Time : 10/30/2019 18:12 EST Nancy Lanier RN - 10/30/2019 18:12 EST DCP GENERIC CODE Tracking Acuity : 3 - Urgent Tracking Group : [facility] ED Nancy Lanier RN - 10/30/2019 18:12 EST Mode of Arrival : Ambulatory Transported to ED by : Private vehicle To Room Via : Wheelchair Accompanied By : Spouse ED Vital Signs : Document Height & Weight : Document ED Allergies : Document ED Reason for Visit : Document Nancy Lanier RN - 10/30/2019 18:12 EST Infectious Disease History Physical contact outside [place] in the last 30 days : No Infectious Disease History : Chicken pox/Shingles, Measles, Mumps Tuberculosis Symptoms : None Nancy Lanier RN - 10/30/2019 18:12 EST Vital Signs ED Temperature Source : Oral Temperature Mode : Fahrenheit ED Pain : Yes Oxygen Therapy Mode : Room air Peripheral Pulse Rate : 69 bpm Respiratory Rate : 20 Breaths/Min Systolic Blood Pressure : 124 mmHg Diastolic Blood Pressure : 60 mmHg Oxygen Saturation : 94 % Nancy Lanier RN - 10/30/2019 18:12 EST Allergy (As Of: 10/30/2019 18:19:24 EST) Allergies (Active) penicillin Estimated Onset Date: Unspecified ; Created By: Nancy aLnier RN; Reaction Status: Active ; Category: Drug ; Substance: penicillin ; Type: Allergy ; Updated By: Nancy Lanier RN; Reviewed Date: 10/30/2019 18:16 EST sulfa drugs Estimated Onset Date: Unspecified ; Created By: Nancy Lanier RN; Reaction Status: Active ; Category: Drug ; Substance: sulfa drugs ; Type: Allergy ; Updated By: Nancy Lanier RN; Reviewed Date: 10/30/2019 18:16 EST Toradol Estimated Onset Date: Unspecified ; Created By: Nancy Lanier RN; Reaction Status: Active ; Category: Drug ; Substance: Toradol ; Type: Allergy ; Updated By: Nancy Lanier RN; Reviewed Date: 10/30/2019 18:17 EST Diagnosis Control ED (As Of: 10/30/2019 18:19:24 EST) Diagnoses(Active) Dizziness Date: 10/30/2019 ; Diagnosis Type: Reason For Visit ; Confirmation: Complaint of ; Clinical Dx: Dizziness ; Classification: Medical ; Clinical Service: Non-Specified ; Code: PNED ; Probability: 0 ; Diagnosis Code: [id number] ED Height and Weight Height Source : Stated Height Entry Format : [place] Height, Feet : 5 ft(Converted to: 152 cm, 60 Inch) Height, Inches : 6 Inch(Converted to: 0 ft 6 Inch, 15.24 cm) Clinical Height : 167.64 cm Weight Source, ED : Critical estimated dosing weight Weight Entry Format : [place] Weight, Pounds : 250 lb Clinical Dosing Weight : 113.64 kg Body Surface Area (BSA) : 2.2 m2 Body Mass Index : 40.4 kg/m2 (>HHI) [place] Body Weight (IBW) : 58.88 kg Nancy Lanier RN - 10/30/2019 18:12 EST Pain Assessment Pain Assessment : Initial assessment Pain Scale Used : 0-10 Scale Nancy Lanier RN - 10/30/2019 18:12 EST Pain Scale Intensity : 6 Nancy Lanier RN - 10/30/2019 18:12 EST Image 4 - Images currently included in the form version of this document have not been included in the text rendition version of the form. documented in this encounter Plan of Treatment Not on file documented as of this encounter Visit Diagnoses Not on filedocumented in this encounter
--- OUTSIDE RECORDS SUMMARY | 2025-03-14 14:56 | XMS_ITS | Encounter Summary ---
Author Organization [employer] ([place], [place], [place], [place]) Address [address] [place] [address] Care Team Providers Care Rn Production Name Role Phone Unavailable Primary Care Provider Unavailabl e Encounter Details Date Type Department Care Team (Late st Contact Info) Description 10/31/2019 Transcribed Document [facility] [place] [address] [place] [address] ProviderKevin MD [address] [place] [phone] Social History Tobacco Use Types Packs/Day Years Used Date Smoking Tobacco: Never Assessed Comments Unknown Sex and Gender Information Value Date Recorded Sex Assigned at Not on file Legal Sex Female 6:40 PM CDT Gender Identity Not on file Sexual Orientation Not on file documented as of this encounter Miscellaneous Notes * Cerner Conversion Note - Kevin ProviderMD - 10/31/2019 12:47 AM HIGH [employer]CHO[employer] PROFESSIONAL ED Discharge Entered On: 10/31/2019 0:47 EST Performed On: 10/31/2019 0:47 EST by Monika Edwards RN Discharge Process Patient Disposition : Discharge Patient Education Completed : Yes Teaching Evaluation : Verbalizes understanding IV Discontinued : Yes Nursing Documentation Completed : Yes Monika Edwards RN - 10/31/2019 0:47 EST ED Discharge Discharge To : Home with ambulatory/outpatient follow-up Mode Of Departure : Private vehicle Accompanied By : Spouse Discharge Instructions Reviewed With, Opportunity For Questions Given : Patient, Spouse Prescriptions Given to Patient : Yes Number of Prescriptions Given : 1 Monika Edwards RN - 10/31/2019 0:47 EST Electronically signed by [facility] Conversion Pipeline Inspector Cerner at 12/24/2022 10:40 AM CDT documented in this encounter Plan of Treatment Not on file documented as of this encounter Visit Diagnoses Not on filedocumented in this encounter
--- OUTSIDE RECORDS SUMMARY | 2025-03-14 14:56 | XMS_ITS | Encounter Summary ---
Author Organization [employer] ([place], [place], [place], [place]) Address [address] [facility] [place] [address] Care Team Providers Care Custodian Name Role Phone Unavailable Primary Care Provider Unavailabl e Encounter Details Date Type Department Care Team (Late st Contact Info) Description 10/31/2019 Transcribed Document [facility] Family Medicine [address] [place] [address] ProviderKevin MD [address] [place] [address] Social History Tobacco Use Types Packs/Day Years Used Date Smoking Tobacco: Never Assessed Comments Unknown Sex and Gender Information Value Date Recorded Sex Assigned at Not on file Legal Sex Female 6:40 PM CDT Gender Identity Not on file Sexual Orientation Not on file documented as of this encounter Miscellaneous Notes * Cerner Conversion Note - Kevin Orr MD - 10/31/2019 12:11 AM TICKER WIRER [facility] [place] [address] ERASTO PAGAN :1965 Visit Time:10/30/2019 Your Visit Summary Your Care Team Primary Provider: JACOB LUBIN MD Secondary Provider: Your Diagnosis Dizziness, Dizziness Dizziness, Vertigo Headache, chronic daily Lung nodule Mass of parotid gland Medical Information You may obtain a copy of your Emergency Department visit from Medical Records by calling the hospital phone number listed above and asking to be directed to the Medical Records Department. If you had special tests, such as EKG???s or X-rays, the interpretation of your tests given to you by the Emergency Department Physician is a preliminary report. Some fractures and illnesses fail to show up on preliminary tests. These will be reviewed again and we will call you if there are any new suggestions. If your symptoms continue notify your physician. After you leave, you should follow the instructions provided. What to do next Follow-Up Appointments Follow Up with JEANNIE HERNANDEZ When Within 2 to 3 days Comments Call for follow up appointment with your PCP and I also recommend evaluation by an ENT as they found a small cyst in the right parotid gland on your face and recommend specialty evaluation. Use the meclizine as needed for symptoms, drink lots of water fluids. Return with any acute worsening symptoms. Where: [address] [place] [address]- Business (1) Follow [facility] with [facility] When Only if needed Comments Patient states Jeannie Hernandez is her Primary Care Provider. Please contact the [facility] at if you need assistance scheduling a Specialist or Primary Care Provider in the future. Allergies Toradol penicillin sulfa drugs Immunizations This Visit No Immunizations Found Medications What How Much When Instructions Next Dose New meclizine (meclizine 25 mg oral tablet) 1 Tablet(s) Oral Three Times A Day as needed for as needed for dizziness Printed Prescription The home medications listed are only as accurate as the information you provided. Please continue taking all of your medications prescribed by your Primary Care Provider unless specifically told to change or discontinue the medication. Please direct any questions regarding your home medications to your Primary Care Provider. Take your medications faithfully. Do NOT skip medication. Do NOT stop taking medications without the direction of a physician. Carry a list of your medications with you at all times, and take this medication list with you to your first follow up visit. Report any side effects. Avoid herbal remedies unless discussed with your physician. As part of your treatment plan, your physician may have prescribed a limited course of a controlled substance. This medication may be given to help people with moderate or severe pain or for other medical conditions, but there are risks involved with treatment. Common side effects may include nausea, constipation, drowsiness, sweating, itching, dry mouth, and rash. More serious side effects may include cognitive and motor impairment, like problems with thinking, concentrating, alertness, and movement (e.g. slowed reflexes), and driving and operating heavy machinery can be dangerous. It is important for you to talk to your physician if you have these side effects or questions. These controlled substances can produce physical dependence and be habit-forming if taken for an extended period of time, which means that the body has gotten used to them and may experience withdrawal symptoms if they are abruptly stopped. Withdrawal symptoms can include runny nose, sweating, goose bumps, diarrhea, abdominal cramping, rapid heartbeat, difficulty sleeping, and nervousness. Please dispose of unused and medications per pharmacy guidance. Test Results Laboratory or Other Results This Visit (last charted value for your 10/30/2019 visit) Hematology 10/30/2019 8:28 PM WBC: 11.3 K/uL -- Normal range between ( 4.5 and 10.5 ) RBC: 4.93 Million/uL -- Normal range between ( 3.93 and 5.22 ) Hct: 47.1 % -- Normal range between ( 34.1 and 44.9 ) Hgb: 15.7 g/dL -- Normal range between ( 11.2 and 15.7 ) Platelet Count: 296 K/uL -- Normal range between ( 163 and 369 ) MCH: 31.8 pg -- Normal range between ( 25.6 and 32.2 ) MCHC: 33.3 Gram/dL -- Normal range between ( 32.2 and 36.5 ) MCV: 95.5 fL -- Normal range between ( 79.0 and 94.8 ) Slide Review: No Eos %: 4.1 % -- Normal range between ( 0.0 and 7.0 ) [place] #: 0.74 K/uL -- Normal range between ( 0.16 and 1.00 ) Eos #: 0.46 x10(3)/uL -- Normal range between ( 0.00 and 0.80 ) [place] %: 6.5 % -- Normal range between ( 3.0 and 9.0 ) Baso %: 0.8 % -- Normal range between ( 0.0 and 1.5 ) Baso #: 0.09 x10(3)/uL -- Normal range between ( 0.00 and 0.20 ) RDW: 14.8 % -- Normal range between ( 11.7 and 14.9 ) Neut %: 59.4 % -- Normal range between ( 34.0 and 71.0 ) Neut #: 6.71 K/uL -- Normal range between ( 1.56 and 6.13 ) Lymph %: 28.8 % -- Normal range between ( 19.3 and 53.1 ) Lymph #: 3.26 x10(3)/uL -- Normal range between ( 1.00 and 3.90 ) MPV: 10.3 fL -- Normal range between ( 9.4 and 12.4 ) IG#: 0.05 x10(3)/uL -- Normal range between ( 0.00 and 0.05 ) IG%: 0.40 % -- Normal range between ( 0.00 and 0.60 ) Urinalysis 10/30/2019 9:56 PM Urine Nitrite: Negative Urine Leukocyte Esterase: Negative Urine Appearance: Clear Urine Glucose Dipstick: Negative Urine Blood Dipstick: Negative Urine Urobilinogen Dipstick: 0.2 EU/dL Urine Protein Dipstick: Negative Ur Squamous Epithelial Cells: 0-2 /HPF Urine Color: Yellow Urine Ketones Dipstick: Negative Urine pH Dipstick: 6.5 -- Normal range between ( 6.0 and 8.0 ) Urine Bilirubin Dipstick: Negative Urine Specific [place]: 1.006 -- Normal range between ( 1.005 and 1.030 ) U[facility] Type.: [facility] 10/30/2019 8:28 PM Creatinine Level: 0.90 mg/dL -- Normal range between ( 0.55 and 1.02 ) Sodium Level: 138 mmol/L -- Normal range between ( 136 and 146 ) Potassium Level: 3.9 mmol/L -- Normal range between ( 3.5 and 5.1 ) Chloride Level: 109 mmol/L -- Normal range between ( 102 and 112 ) Carbon Dioxide Level: 24 mmol/L -- Normal range between ( 21 and 32 ) Anion Gap: 9 -- Normal range between ( 9 and 20 ) Bun/Creatinine: 12.2 -- Normal range between ( 8.0 and 20.0 ) Calcium Level: 9.8 mg/dL -- Normal range between ( 8.4 and 10.1 ) eGFR : >60 mL/min/1.73m2 eGFR NonAfrican: >60 mL/min/1.73m2 Glucose Level: 115 mg/dL -- Normal range between ( 74 and 106 ) Blood Urea Nitrogen: 11 mg/dL -- Normal range between ( 7 and 22 ) Cardiac Specific Markers 10/30/2019 8:28 PM Troponin I Ultra: <0.015 ng/mL -- Normal range between ( 0.015 and 0.045 ) Coagulation 10/30/2019 8:19 PM D Dimer Quant: see comment mg/L FEU -- Normal range between ( 0.00 and 0.58 ) INR: 1.0 -- Normal range between ( 0.9 and 1.1 ) PT: 10.6 Second(s) -- Normal range between ( 9.6 and 12.0 ) Toxicology 10/30/2019 9:56 PM UDS Amp: NEGATIVE UDS [place]: NEGATIVE UDS Benzo: NEGATIVE UDS [place]: NEGATIVE UDS Opi: NEGATIVE UDS PCP: NEGATIVE UDS TCA: NEGATIVE UDS THC: NEGATIVE UDS pH: 6.5 Computed Tomography 10/30/2019 11:02 PM CTA Head: CTA Head CTA Neck: CTA Neck CTA Chest PE Protocol: CTA Chest PE Protocol Diagnostic Radiology 10/30/2019 7:19 PM CR Chest 2 Vws: CR Chest 2 Vws Education Materials Pulmonary Nodule A pulmonary nodule is a small, round growth of tissue in the lung. It is sometimes referred to as a shadow or spot on the lung. Nodules range in size from less than 1/5 of an inch (4 mm) to a little bigger than an inch (30 mm). Pulmonary nodules can be either noncancerous (benign) or cancerous (malignant). Most are noncancerous. Smaller nodules in people who do not smoke and do not have any other risk factors for lung cancer are more likely to be noncancerous. Larger, irregular nodules in people who smoke or who have a strong family history of lung cancer are more likely to be cancerous. What are the causes? This condition may be caused by: ??? A bacterial, fungal, or viral infection, such as tuberculosis. The infection is usually an old and inactive one. ??? A noncancerous mass of tissue. ??? Inflammation from conditions such as rheumatoid arthritis. ??? Abnormal blood vessels in the lungs. ??? Cancerous tissue, such as lung cancer or a cancer in another part of the body that has spread to the lung. What are the signs or symptoms? This condition usually does not cause symptoms. If symptoms appear, they are usually related to the underlying cause. For example, if the condition is caused by an infection, you may have a cough or fever. How is this diagnosed? This condition is usually diagnosed with an X-ray or CT scan. To help determine whether a pulmonary nodule is benign or malignant, your health care provider will: ??? Take your medical history. ??? Perform a physical exam. ??? Order tests, including: ? Blood tests. ? A skin test called a tuberculin test. This test is done to check if you have been exposed to the germ that causes tuberculosis. ? Chest X-rays. ? A CT scan. This test shows smaller pulmonary nodules more clearly and with more detail than an X-ray. ? A positron emission tomography (PET) scan. This test is done to check if the nodule is cancerous. During the test, a safe amount of a radioactive substance is injected into the bloodstream. Then a picture is taken. ? Biopsy. In this test, a tiny piece of the pulmonary nodule is removed and then examined under a microscope. How is this treated? Treatment for this condition depends on whether the pulmonary nodule is malignant or benign as well as your risk of getting cancer. ??? Noncancerous nodules usually do not need to be treated, but they may need to be monitored with CT scans. If a CT scan shows that the pulmonary nodule got bigger, more tests may be done. ??? Some nodules need to be removed. If this is the case, you may have a procedure called a thoractomy. During the procedure, your health care provider will make an incision in your chest and remove the part of the lung where the nodule is located. Follow these instructions at home: ??? Take jwqu-gvu-rchpahu and prescription medicines only as told by your health care provider. ??? Do not use any products that contain nicotine or tobacco, such as cigarettes and e-cigarettes. If you need help quitting, ask your health care provider. ??? Keep all follow-up visits as told by your health care provider. This is important. Contact a health care provider if: ??? You have trouble breathing when you are active. ??? You feel sick or unusually tired. ??? You do not feel like eating. ??? You lose weight without trying. ??? You develop chills or night sweats. Get help right away if: ??? You cannot catch your breath. ??? You begin wheezing. ??? You cannot stop coughing. ??? You cough up blood. ??? You become dizzy or feel like you are going to faint. ??? You have sudden chest pain. ??? You have a fever or persistent symptoms for more than 2???3 days. ??? You have a fever and your symptoms suddenly get worse. Summary ??? A pulmonary nodule is a small, round growth of tissue in the lung. Most pulmonary nodules are noncancerous. ??? This condition is usually diagnosed with an X-ray or CT scan. ??? Common causes of pulmonary nodules include infection, inflammation, and noncancerous growths. ??? Though less common, if a nodule is found to be cancerous, you will need specific diagnostic tests and treatment options as directed by your medical provider. ??? Treatment for this condition depends on whether the pulmonary nodule is benign or malignant as well as your risk of getting cancer. This information is not intended to replace advice given to you by your health care provider. Make sure you discuss any questions you have with your health care provider. Document Released: 06/19/2010 Document Revised: 09/20/2017 Document Reviewed: 09/20/2017 [employer] Interactive Patient Education ?? 2019 [employer] Vertigo Vertigo is the feeling that you or your surroundings are moving when they are not. Vertigo can be dangerous if it occurs while you are doing something that could endanger you or others, such as driving. What are the causes? This condition is caused by a disturbance in the signals that are sent by your body???s sensory systems to your brain. Different causes of a disturbance can lead to vertigo, including: ??? Infections, especially in the inner ear. ??? A bad reaction to a drug, or misuse of alcohol and medicines. ??? Withdrawal from drugs or alcohol. ??? Quickly changing positions, as when lying down or rolling over in bed. ??? Migraine headaches. ??? Decreased blood flow to the brain. ??? Decreased blood pressure. ??? Increased pressure in the brain from a head or neck injury, stroke, infection, tumor, or bleeding. ??? Central nervous system disorders. What are the signs or symptoms? Symptoms of this condition usually occur when you move your head or your eyes in different directions. Symptoms may start suddenly, and they usually last for less than a minute. Symptoms may include: ??? Loss of balance and falling. ??? Feeling like you are spinning or moving. ??? Feeling like your surroundings are spinning or moving. ??? Nausea and vomiting. ??? Blurred vision or double vision. ??? Difficulty hearing. ??? Slurred speech. ??? Dizziness. ??? Involuntary eye movement (nystagmus). Symptoms can be mild and cause only slight annoyance, or they can be severe and interfere with daily life. Episodes of vertigo may return (recur) over time, and they are often triggered by certain movements. Symptoms may improve over time. How is this diagnosed? This condition may be diagnosed based on medical history and the quality of your nystagmus. Your health care provider may test your eye movements by asking you to quickly change positions to trigger the nystagmus. This may be called the Jace-Hallpike test, head thrust test, or roll test. You may be referred to a health care provider who specializes in ear, nose, and throat (ENT) problems (speed winder) or a provider who specializes in disorders of the central nervous system (neurologist). You may have additional testing, including: ??? A physical exam. ??? Blood tests. ??? MRI. ??? A CT scan. ??? An electrocardiogram (ECG). This records electrical activity in your heart. ??? An electroencephalogram (EEG). This records electrical activity in your brain. ??? Hearing tests. How is this treated? Treatment for this condition depends on the cause and the severity of the symptoms. Treatment options include: ??? Medicines to treat nausea or vertigo. These are usually used for severe cases. Some medicines that are used to treat other conditions may also reduce or eliminate vertigo symptoms. These include: ? Medicines that control allergies (antihistamines). ? Medicines that control seizures (anticonvulsants). ? Medicines that relieve depression (antidepressants). ? Medicines that relieve anxiety (sedatives). ??? Head movements to adjust your inner ear back to normal. If your vertigo is caused by an ear problem, your health care provider may recommend certain movements to correct the problem. ??? Surgery. This is rare. Follow these instructions at home: Safety ??? Move slowly.Avoid sudden body or head movements. ??? Avoid driving. ??? Avoid operating heavy machinery. ??? Avoid doing any tasks that would cause danger to you or others if you would have a vertigo episode during the task. ??? If you have trouble walking or keeping your balance, try using a cane for stability. If you feel dizzy or unstable, sit down right away. ??? Return to your normal activities as told by your health care provider. Ask your health care provider what activities are safe for you. General instructions ??? Take mwav-rpl-hoxsnug and prescription medicines only as told by your health care provider. ??? Avoid certain positions or movements as told by your health care provider. ??? Drink enough fluid to keep your urine clear or pale yellow. ??? Keep all follow-up visits as told by your health care provider. This is important. Contact a health care provider if: ??? Your medicines do not relieve your vertigo or they make it worse. ??? You have a fever. ??? Your condition gets worse or you develop new symptoms. ??? Your family or friends notice any behavioral changes. ??? Your nausea or vomiting gets worse. ??? You have numbness or a ???pins and needles?? sensation in part of your body. Get help right away if: ??? You have difficulty moving or speaking. ??? You are always dizzy. ??? You faint. ??? You develop severe headaches. ??? You have weakness in your hands, arms, or legs. ??? You have changes in your hearing or vision. ??? You develop a stiff neck. ??? You develop sensitivity to light. This information is not intended to replace advice given to you by your health care provider. Make sure you discuss any questions you have with your health care provider. Document Released: 06/01/2006 Document Revised: 02/02/2017 Document Reviewed: 12/15/2015 [employer] Interactive Patient Education ?? 2019 [employer] Migraine Headache A migraine headache is an intense, throbbing pain on one side or both sides of the head. Migraines may also cause other symptoms, such as nausea, vomiting, and sensitivity to light and noise. What are the causes? Doing or taking certain things may also trigger migraines, such as: ??? Alcohol. ??? Smoking. ??? Medicines, such as: ? Medicine used to treat chest pain (nitroglycerine). ? control pills. ? Estrogen pills. ? Certain blood pressure medicines. ??? Aged cheeses, chocolate, or caffeine. ??? Foods or drinks that contain nitrates, glutamate, aspartame, or tyramine. ??? Physical activity. Other things that may trigger a migraine include: ??? Menstruation. ??? . ??? Hunger. ??? Stress, lack of sleep, too much sleep, or fatigue. ??? Weather changes. What increases the risk? The following factors may make you more likely to experience migraine headaches: ??? Age. Risk increases with age. ??? Family history of migraine headaches. ??? Being . ??? Depression and anxiety. ??? Obesity. ??? Being a woman. ??? Having a hole in the heart (patent foramen ovale) or other heart problems. What are the signs or symptoms? The main symptom of this condition is pulsating or throbbing pain. Pain may: ??? Happen in any area of the head, such as on one side or both sides. ??? Interfere with daily activities. ??? Get worse with physical activity. ??? Get worse with exposure to bright lights or loud noises. Other symptoms may include: ??? Nausea. ??? Vomiting. ??? Dizziness. ??? General sensitivity to bright lights, loud noises, or smells. Before you get a migraine, you may get warning signs that a migraine is developing (aura). An aura may include: ??? Seeing flashing lights or having blind spots. ??? Seeing bright spots, halos, or zigzag lines. ??? Having tunnel vision or blurred vision. ??? Having numbness or a tingling feeling. ??? Having trouble talking. ??? Having muscle weakness. How is this diagnosed? A migraine headache can be diagnosed based on: ??? Your symptoms. ??? A physical exam. ??? Tests, such as CT scan or MRI of the head. These imaging tests can help rule out other causes of headaches. ??? Taking fluid from the spine (lumbar puncture) and analyzing it (cerebrospinal fluid analysis, or CSF analysis). How is this treated? A migraine headache is usually treated with medicines that: ??? Relieve pain. ??? Relieve nausea. ??? Prevent migraines from coming back. Treatment may also include: ??? Acupuncture. ??? Lifestyle changes like avoiding foods that trigger migraines. Follow these instructions at home: Medicines ??? Take ccau-pew-nacmcfq and prescription medicines only as told by your health care provider. ??? Do not drive or use heavy machinery while taking prescription pain medicine. ??? To prevent or treat constipation while you are taking prescription pain medicine, your health care provider may recommend that you: ? Drink enough fluid to keep your urine clear or pale yellow. ? Take wsbi-ebo-vwzmdch or prescription medicines. ? Eat foods that are high in fiber, such as fresh fruits and vegetables, whole grains, and beans. ? Limit foods that are high in fat and processed sugars, such as fried and sweet foods. Lifestyle ??? Avoid alcohol use. ??? Do not use any products that contain nicotine or tobacco, such as cigarettes and e-cigarettes. If you need help quitting, ask your health care provider. ??? Get at least 8 hours of sleep every night. ??? Limit your stress. General instructions ??? Keep a journal to find out what may trigger your migraine headaches. For example, write down: ? What you eat and drink. ? How much sleep you get. ? Any change to your diet or medicines. ??? If you have a migraine: ? Avoid things that make your symptoms worse, such as bright lights. ? It may help to lie down in a dark, quiet room. ? Do not drive or use heavy machinery. ? Ask your health care provider what activities are safe for you while you are experiencing symptoms. ??? Keep all follow-up visits as told by your health care provider. This is important. Contact a health care provider if: ??? You develop symptoms that are different or more severe than your usual migraine symptoms. Get help right away if: ??? Your migraine becomes severe. ??? You have a fever. ??? You have a stiff neck. ??? You have vision loss. ??? Your muscles feel weak or like you cannot control them. ??? You start to lose your balance often. ??? You develop trouble walking. ??? You faint. This information is not intended to replace advice given to you by your health care provider. Make sure you discuss any questions you have with your health care provider. Document Released: 08/22/2006 Document Revised: 03/11/2017 Document Reviewed: 02/07/2017 [employer] Interactive Patient Education ?? 2019 [employer] Dizziness Dizziness is a common problem. It is a feeling of unsteadiness or light-headedness. You may feel like you are about to faint. Dizziness can lead to injury if you stumble or fall. Anyone can become dizzy, but dizziness is more common in older adults. This condition can be caused by a number of things, including medicines, dehydration, or illness. Follow these instructions at home: Eating and drinking ??? Drink enough fluid to keep your urine clear or pale yellow. This helps to keep you from becoming dehydrated. Try to drink more clear fluids, such as water. ??? Do not drink alcohol. ??? Limit your caffeine intake if told to do so by your health care provider. Check ingredients and nutrition facts to see if a food or beverage contains caffeine. ??? Limit your salt (sodium) intake if told to do so by your health care provider. Check ingredients and nutrition facts to see if a food or beverage contains sodium. Activity ??? Avoid making quick movements. ? Rise slowly from chairs and steady yourself until you feel okay. ? In the morning, first sit up on the side of the bed. When you feel okay, stand slowly while you hold onto something until you know that your balance is fine. ??? If you need to mechanical engineering specialist one place for a long time, move your legs often. Tighten and relax the muscles in your legs while you are standing. ??? Do not drive or use heavy machinery if you feel dizzy. ??? Avoid bending down if you feel dizzy. Place items in your home so that they are easy for you to reach without leaning over. Lifestyle ??? Do not use any products that contain nicotine or tobacco, such as cigarettes and e-cigarettes. If you need help quitting, ask your health care provider. ??? Try to reduce your stress level by using methods such as yoga or meditation. Talk with your health care provider if you need help to manage your stress. General instructions ??? Watch your dizziness for any changes. ??? Take ooev-sqr-ybsoibm and prescription medicines only as told by your health care provider. Talk with your health care provider if you think that your dizziness is caused by a medicine that you are taking. ??? Tell a friend or a family member that you are feeling dizzy. If he or she notices any changes in your behavior, have this person call your health care provider. ??? Keep all follow-up visits as told by your health care provider. This is important. Contact a health care provider if: ??? Your dizziness does not go away. ??? Your dizziness or light-headedness gets worse. ??? You feel nauseous. ??? You have reduced hearing. ??? You have new symptoms. ??? You are unsteady on your feet or you feel like the room is spinning. Get help right away if: ??? You vomit or have diarrhea and are unable to eat or drink anything. ??? You have problems talking, walking, swallowing, or using your arms, hands, or legs. ??? You feel generally weak. ??? You are not thinking clearly or you have trouble forming sentences. It may take a friend or family member to notice this. ??? You have chest pain, abdominal pain, shortness of breath, or sweating. ??? Your vision changes. ??? You have any bleeding. ??? You have a severe headache. ??? You have neck pain or a stiff neck. ??? You have a fever. These symptoms may represent a serious problem that is an emergency. Do not wait to see if the symptoms will go away. Get medical help right away. Call your local emergency services (911 in the [place] Do not drive yourself to the hospital. Summary ??? Dizziness is a feeling of unsteadiness or light-headedness. This condition can be caused by a number of things, including medicines, dehydration, or illness. ??? Anyone can become dizzy, but dizziness is more common in older adults. ??? Drink enough fluid to keep your urine clear or pale yellow. Do not drink alcohol. ??? Avoid making quick movements if you feel dizzy. Monitor your dizziness for any changes. This information is not intended to replace advice given to you by your health care provider. Make sure you discuss any questions you have with your health care provider. Document Released: 02/15/2002 Document Revised: 09/24/2017 Document Reviewed: 09/24/2017 [employer] Patient Education ?? 2019 [employer] Emergency Awareness and Preventative Care STROKE is an EMERGENCY Every Minute Counts Act FAST and Check for these signs: FACE Does the face look uneven? ARM Does one arm drift down? SPEECH Does their speech sound strange? TIME Call at any sign of stroke Stroke Risk Factors Atrial Fibrillation (irregular heartbeat) Diabetes Family history of stroke Heart Disease Heavy alcohol use High Blood Pressure High Cholesterol Physical inactivity and obesity Smoking Cigarette Smoking The facts are clear, cigarette smoking will shorten your life. Smoking can cause many illnesses along the way. As a healthcare provider, we recommend that you stop smoking. Assistance with quitting is available by contacting 5-965-MXVK-NOW. This is a free resource providing counseling, support, and referral. Or you may contact your personal physician. [employer] Suicide Prevention Lifeline: The National Suicide Prevention Lifeline is a national network of local crisis centers that provides free and confidential emotional support to people in suicidal crisis or emotional distress 24 hours a day, 7 days a week. Don't Wait! Stop a Heart Attack Before it Starts What is a heart attack? A heart attack is damage or to a part of the heart from severely decreased or lack of blood flow to the heart. Over time, arteries can become narrow from the buildup of fat and cholesterol, which is called plaque. The plaque can rupture causing a blood clot to form. When the blood clot forms, the artery can become severely narrowed or completely blocked, causing a heart attack. Heart attack is the leading cause of in the [place]. 85% of muscle damage occurs within the first 2 hours. Delay in the recognition of heart attack symptoms increases the chances of . Know the early symptoms of a heart attack: Nausea Feeling of fullness in chest Jaw Pain Pain that travels down one or both arms Fatigue/being tired Anxiety Back Pain Chest pressure, squeezing, or discomfort Shortness of breath Sweating, or a cold sweat Feeling of impending doom There are unusual signs of a heart attack, too! Women, the elderly, and diabetics may present with atypical symptoms: Fainting/dizziness Weakness Confusion Risk Factors for a Heart Attack Some heart disease risk factors, such as age and family history, cannot be changed. Others, like smoking and lack of exercise, can be changed. Smoking High Cholesterol High Blood Pressure Family History Obesity Age Gender (Males are at higher risk) Lack of Exercise Diabetes Diet Stress Excessive Alcohol Intake If you or someone you know is experiencing the signs and symptoms of a heart attack, DON???T DELAY. Call immediately and seek help. If someone collapses, perform CPR! Do not attempt to drive if you are having symptoms of heart attack. Hands-Only CPR Why Hands-Only CPR? Hands-Only CPR has been shown to be as effective as conventional CPR for cardiac arrests that occur outside of a hospital. Survival depends on immediately receiving CPR from someone nearby. How do you perform Hands-Only CPR? There are two easy steps: Call if you see a teen or adult collapse Push hard and fast in the center of the chest at a beat of 100 beats per minute. Save a life! 4 WAYS TO GET AHEAD OF SEPSIS SEPSIS is a MEDICAL EMERGENCY. Time matters! Infections put you and your family at risk for a life-threatening condition called sepsis. Sepsis is the body's extreme response to an infection. It is life-threatening, and without timely treatment, sepsis can rapidly lead to tissue damage, organ failure, and . Sepsis happens when an infection you already have-in your skin, lungs, urinary tract or somewhere else-triggers a chain reaction throughout your body. 1 PREVENT INFECTIONS Take good care of chronic conditions. Talk to your doctor about getting the recommended vaccines. 2 PRACTICE GOOD HYGIENE Wash your hands frequently. Keep cuts or open sores clean and covered until they are healed. 3 KNOW THE SYMPTOMS Confusion or disorientation Shortness of breath High heart rate Fever, shivering, or feeling very cold Extreme pain or discomfort Clammy or sweaty skin 4 ACT FAST Get medical care IMMEDIATELY if you suspect sepsis or if you have an infection that is not getting better or is getting worse. To learn more about sepsis and how to prevent infections, visit www.cdc.gov/sepsis. The examination and treatment you have received in the Emergency Department has been done to provide an appropriate evaluation and stabilizing treatment on an emergency basis only. Given the limited resources, it is not meant to be a substitute for complete medical care. The follow-up doctor you named will receive a copy of your records and all test reports. IT IS IMPORTANT THAT YOU SCHEDULE A FOLLOW-UP APPOINTMENT AND ARE RE-EVALUATED. You should report any new complaints, symptoms, or remaining problems at that time. IT IS IMPOSSIBLE FOR THE EMERGENCY DEPARTMENT TO RECOGNIZE AND TREAT ALL ELEMENTS OF INJURY OR ILLNESS IN A SINGLE VISIT. If you have been referred to a specialist physician, it means that we believe you may have a condition that requires the expertise of a specialist. These physicians work in partnership with the hospital and have agreed to see referred patients in their office for further evaluation. KEEP IN MIND THAT THE SPECIALIST HAS HIS/HER OWN OFFICE POLICIES WHICH MAY REQUIRE PROPER INSURANCE OR PAYMENT UP FRONT BEFORE THE SPECIALIST WILL SEE YOU. It is your responsibility to call the specialist physician to make an appointment. We do not have the ability to refer patients to specialists/physicians that work with specific insurance companies. Please be advised that all financial charges or billing practices are determined by that practice, not the hospital. If your insurance company requires that you see a specialist from their approved list, it is your responsibility to contact your insurance company to make those arrangements. It is also your responsibility to follow any other requirements of your insurance company necessary to obtain coverage for claims submitted. We will bill your insurance; however, you are responsible today for any co-pay amounts. You will receive a separate bill for any services you may have received including: emergency, radiology, or pathology physicians. Patient Name:ERASTO PAGAN Tasha I have received this information and was given the opportunity to ask questions. Patient/Illusionist Name: Patient/Illusionist Signature: Relationship to Patient: Clinician/Hospital Illusionist Signature: Please Provide a Telephone Number Where You Can Be Reached: Is it Permissible To Leave a Message? Date: documented in this encounter Plan of Treatment Not on file documented as of this encounter Visit Diagnoses Not on filedocumented in this encounter
--- OUTSIDE RECORDS SUMMARY | 2025-03-14 14:56 | XMS_ITS | Clinical Summary ---
Author Organization Healthcare Address [address] [place] [address] Care Team Providers Care Filing Machine Operator Name Role Phone Amanda Morris Primary Care Provider [phone] Allergies Active Allergy Reactions Criticality Noted Date Comments Clotrimazole Unknown - Patient st ates they do not know rxn details Low 10/14/2017 Ketorolac Unknown - Patient st ates they do not know rxn details Low 10/14/2017 Ketorolac Tromethamine Unknown - Patient states they do not know rxn details Low 01/12/2007 Penicillins Unknown - Patient st ates they do not know rxn details Low 01/12/2007 Shellfish Allergy Unknown - Patient st ates they do not know rxn details Low 01/12/2007 Sulfamethoxazole Unknown - Patient st ates they do not know rxn details Low 01/12/2007 Trimethoprim Unknown - Patient st ates they do not know rxn details Low 10/14/2017 Medications albuterol 108 (90 Base) MCG/ACT inhaler 0 Active citalopram (CeleXA) 20 MG tablet 3 Active diphenhydrAMINE (Benadryl Allergy) 25 MG capsule 0 Active HYDROcodone-acetam inophen (Sapphire) 7.5-325 MG tablet 4 Active hydrOXYzine pamoate (Vistaril) 25 MG capsule 0 Active ibuprofen 800 MG tablet 3 Active Lantus SoloStar 100 UNIT/ML injection pen 3 Active Droplet Pen Mantachie 32G X 4 MM misc 3 Active Taltz 80 MG/ML solution auto-injector 3 Active levothyroxine (Synthroid, Levoxyl) 175 MCG tablet Take 2 tablets on Tuesday and and 1 tablet the rest of the week 3 Active Linzess 290 MCG capsule 3 Active lisinopril 5 MG tablet 3 Active metFORMIN (Glucophage) 500 MG tablet Take 1 tablet (500 mg) by mouth 2 (two) times a day. Active Singulair 10 MG tablet Take 1 tablet (10 mg) by mouth. Active ondansetron ODT (Zofran-ODT) 4 MG disintegrating tablet 3 Active pantoprazole (Protonix) 40 MG EC tablet 8 Active rosuvastatin (Crestor) 20 MG tablet 0 Active sucralfate (Carafate) 1 g tablet 8 Active topiramate (Topamax) 100 MG tablet Take 1 tablet (100 mg) by mouth 2 (two) times a day. Active mirabegron ER (Myrbetriq) 50 MG tablet Take 1 tablet (50 mg) by mouth 1 (one) time each day. Active ascorbic acid (vitamin C) 1000 MG tablet Take 1 tablet (1,000 mg) by mouth 1 (one) time each day. Active triamcinolone (Kenalog) 0.5 % ointment Apply to affected areas once daily 15 g 11 4 Active gabapentin (Neurontin) 300 MG capsule Take 1 capsule twice a day by oral route for 30 days. 4 Active cyclobenzaprine (Flexeril) 10 MG tablet TAKE 1 TABLET 3 TIMES EACH DAY NEEDED FOR MUSCLE SPASM 4 Active estrogens, conjugated, (Premarin) vaginal cream Apply small pea-sized amount (0.5 g) to the vagina daily 30 g 3 4 Active Active Problems Problem Noted Date Diagnosed Date Gross hematuria 09/23/2023 Kidney stones 09/23/2023 Post-menopausal atrophic vaginitis 09/23/2023 Nocturia 09/23/2023 Urinary frequency 09/23/2023 Urinary urgency 09/23/2023 Anemia, iron deficiency 09/22/2023 Diabetes mellitus 09/22/2023 Hypothyroid 09/22/2023 Skin lesion 09/22/2023 Vulvar irritation 04/11/2020 Fecal incontinence 02/10/2020 Lichen sclerosus of female genitalia 02/10/2020 Stress incontinence 02/10/2020 Urge incontinence 02/10/2020 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 Hoarseness, chronic 08/08/2018 Tongue ulceration 08/08/2018 Back pain 10/17/2017 DDD (degenerative disc disease), cervical 2017 DDD (degenerative disc disease), lumbar 10/17/19 18 Kyphosis 10/17/2017 Neck pain 10/17/2017 Sacroiliac joint dysfunction of right side 10/17 Family History Medical History Relation Name Comments Conversions - Other Mother cancer o f vulva Relation Name Status Comments Mother Social History Tobacco Use Types Packs/Day Years Used Date Smoking Tobacco: Every Day Cigarettes 1 1.5 Started: 2023; Last attempted to quit: 2022 Passive Smoke Exposure: Yes Smokeless Tobacco: Never Tobacco Cessation:Ready to Q uit: Not Asked Alcohol Use Standard Drinks/Week Comments No 0 (1 standard drink = 0.6 oz pur e alcohol) PHQ-2 Answer Date Recorded Patient Health Questionnaire-2 Score 0 08/06/2024 Comments Unknown Sex and Gender Information Value Date Recorded Sex Assigned at Not on file Legal Sex Female 7:46 PM EDT Gender Identity Not on file Sexual Orientation Not on file Last Filed Vital Signs Vital Sign Reading Time Taken Comments Blood Pressure 130/80 08/06/2024 8:58 AM EST Pulse 74 08/06/2024 8:58 AM EST Temperature 36.6 C (97.9 F) 08/06/2024 8:58 AM EST Respiratory Rate 10 08/06/2024 8:58 AM EST Oxygen Saturation 94% 08/06/2024 8:58 AM EST Inhaled Oxygen Concentration - - Weight 114 kg (252 lb) 08/06/2024 8:58 AM EST Height 170.2 cm (5' 7 ) 08/06/2024 8:58 AM EST Body Mass Index 39.47 08/06/2024 8:58 AM EST Plan of Treatment Health Maintenance Due Date Last Done Comments [facility]-HIV Screening 1964 [facility]-Hepatitis C Screening 1964 [facility]-Medicare Annual Wellness (AWV) 1965 [facility]-Infant/Child/Adol SDOH Screenings 1964 Diabetes: Dental Exam 1974 [facility]- SDOH Screenings 1982 [facility]-Adult SDOH Screenings 1982 [facility]-DTaP,Tdap,and Td Vaccines (1 - Tdap) 1983 CT Colonography 2009 Colonoscopy 2009 FIT-DNA 2009 FIT 2009 FOBT 2009 Sigmoidoscopy 2009 [facility]-Colorectal Cancer Screening 2009 [facility]-Breast Cancer Screening 2014 [facility]-Zoster Vaccines (1 of 2) 2014 [facility]-Pneumococcal Vaccine: 50+ Years (2 of 2 - PPSV23) 08/24/2016 06/29/2016 [id number] Vaccine (2 - Earnest risk series) 05/14/2021 04/16/2021 [facility]-RSV Vaccine: 60+ Years or (1 - Risk 60-74 years 1-dose series) 2024 [facility]-Diabetes: Hemoglobin A1C 02/03/2025 08/06/2024 [facility]-Influenza Vaccine (#1) 05/06/202509/15, 06/14/2022, 07/06/2017, Additional history exists [facility]-Depression Screening 08/06/2025 08/06/2024 [facility]-Obesity Intervention Completed 08/06/2024, 09/05 HPV Vaccines Aged Out No longer eligi ble based on patient's age to complete this topic [facility]-HIB Vaccines Aged Out No longer e ligible based on patient's age to complete this topic [facility]-Hepatitis A Vaccines Aged Out No longer eligible based on patient's age to complete this topic [facility]-IPV Vaccines Aged Out No longer e ligible based on patient's age to complete this topic [facility]-Rotavirus Vaccines Aged Out No lo nger eligible based on patient's age to complete this topic Procedures Procedure Name Priority Date/Time Associated Diagnosis Comments HEMOGLOBIN A1C Routine 08/06/2024 7:32 AM EST Gross hematuria from Last 3 Months or Most Recently Relevant to Health Maintenance Results * (ABNORMAL) Hemoglobin A1c (08/06/2024 7:32 AM EST) Hemoglobin A1c 5.9(H) <5.7 % 08/06/2024 8:[address] [facility] Blood Venous blood specimen / Unknown Venipuncture / Unknown 08/06/2024 7:32 AM EST 08/06/2024 7:[address] [facility] - 08/06/2024 8:23 AM EST HA1C Interpretive Data: Diagnosis of Diabetes: Diabetic > or = 6.5% Pre-diabetic 5.7 to 6.4% Non-diabetic < or = 5.6% Glycemic Targets for Type I and Type II Diabetics: Non- Adults <7.0% Adults <6.0% Children and Adolescents <7.5% Source: [place] [employer]. Standards of medical care in diabetes,2017. Diabetes Care.2017:40 (suppl 1):S1-S135. HbA1c assay performed by an ion-exchange chromatography method that is certified traceable to the DCCT. Kath Arteaga APRN, DNP LAB BLOOD ORDERABLES Fin al Result [facility] [address] [place] [address] from Last 3 Months or Most Recently Relevant to Health Maintenance Insurance MEDICARE Care Teams Filing Machine Operator Relationship Specialty Start Date End Date Amanda Morris PA [address] [place] [address] [place] [phone] PCP - General 01/16/21
--- OUTSIDE RECORDS SUMMARY | 2025-03-14 14:56 | XMS_ITS | Encounter Summary ---
Author Organization Healthcare Address [address] [place] [address] Care Team Providers Care Screen Print Operator Name Role Phone Amanda Morris Primary Care Provider [phone] Encounter Details Date Type Department Care Team (Late st Contact Info) Description 02/15/2023 Orders Only External Location [address] [place] [address] Shayy Villegas, TANK FILLER [address] [facility] [address] [place], [place] [id number] Social History Tobacco Use Types Packs/Day Years Used Date Smoking Tobacco: Passive Smo ke Exposure - Never Smoker Alcohol Use Standard Drinks/Week Comments No 0 (1 standard drink = 0.6 oz pur e alcohol) Comments Unknown Sex and Gender Information Value Date Recorded Sex Assigned at Not on file Legal Sex Female 7:46 PM EDT Gender Identity Not on file Sexual Orientation Not on file documented as of this encounter Plan of Treatment Not on file documented as of this encounter Procedures Procedure Name Priority Date/Time Associated Diagnosis Comments US OUTSIDE IMAGES 02/15/2023 10:49 AM EDT documented in this encounter Results * US OUTSIDE IMAGES (02/15/2023 10:49 AM EDT) Anatomical Region Laterality Modality Ultrasound 02/15/2023 10:4 9 AM EDT us Shayy Villegas APRN IMG US PROCEDURES Final Re sult documented in this encounter Visit Diagnoses Not on filedocumented in this encounter Care Teams Screen Print Operator Relationship Specialty Start Date End Date Amanda Morris PA [address] [place] [address] [place] [id number] PCP - General 01/16/21 documented as of this encounter
--- OUTSIDE RECORDS SUMMARY | 2025-03-14 14:57 | XMS_ITS | Encounter Summary ---
Author Organization [employer] ([place], [place], [place], [place]) Address [address] [place] [address] Care Team Providers Care Distance Education Director Name Role Phone Unavailable Primary Care Provider Unavailabl e Encounter Details Date Type Department Care Team (Late st Contact Info) Description 10/31/2019 Transcribed Document [facility] Family Medicine [address] [place] [address] ProviderKevin MD [address] [place], [place] [id number] Social History Tobacco Use Types Packs/Day Years Used Date Smoking Tobacco: Never Assessed Comments Unknown Sex and Gender Information Value Date Recorded Sex Assigned at Not on file Legal Sex Female 6:40 PM CDT Gender Identity Not on file Sexual Orientation Not on file documented as of this encounter Miscellaneous Notes * [employer]ner Conversion Note - Kevin ProviderMD - 10/31/2019 12:07 AM COMMUNICATIONS TECH Electronically signed by Alex [facility] Conversion Ramp Attendant Mara at 12/24/2022 10:20 AM CDT documented in this encounter Plan of Treatment Not on file documented as of this encounter Visit Diagnoses Not on filedocumented in this encounter
--- OUTSIDE RECORDS SUMMARY | 2025-03-14 14:57 | XMS_ITS | Encounter Summary ---
Author Organization [employer] ([place], [place], [place], [place]) Address [address] [place] [address] Care Team Providers Care Advertising Inserter Name Role Phone Unavailable Primary Care Provider Unavailabl e Encounter Details Date Type Department Care Team (Late st Contact Info) Description 10/31/2019 Transcribed Document [facility] Family Medicine [address] [place] [address] ProviderKevin MD [address] [place], [place] [id number] Social History Tobacco Use Types Packs/Day Years Used Date Smoking Tobacco: Never Assessed Comments Unknown Sex and Gender Information Value Date Recorded Sex Assigned at Not on file Legal Sex Female 6:40 PM CDT Gender Identity Not on file Sexual Orientation Not on file documented as of this encounter Miscellaneous Notes * [employer]ner Conversion Note - Kevin ProviderMD - 10/31/2019 10:47 AM CLINICAL RESEARCH SPECIALIST CR Chest 2 Vws Ordered: 10/30/2019 Auth (Verified) Reason for Exam: dizziness/near syncope 10/30/2019 20:30 10/31/2019 10:47 (ANDRZEJ NG) No further action required documented in this encounter Plan of Treatment Not on file documented as of this encounter Visit Diagnoses Not on filedocumented in this encounter
--- OUTSIDE RECORDS SUMMARY | 2025-03-14 14:57 | XMS_ITS | Encounter Summary ---
Author Organization [employer] ([place], [place], [place], [place]) Address [address] [place] [address] Care Team Providers Care Mobility Architect Name Role Phone Unavailable Primary Care Provider Unavailabl e Encounter Details Date Type Department Care Team (Late st Contact Info) Description 10/30/2019 Transcribed Document [facility] [place] Family Medicine [address] [place] [address] ProviderKevin MD [address] [place] [id number] Social History Tobacco Use Types Packs/Day Years Used Date Smoking Tobacco: Never Assessed Comments Unknown Sex and Gender Information Value Date Recorded Sex Assigned at Not on file Legal Sex Female 6:40 PM CDT Gender Identity Not on file Sexual Orientation Not on file documented as of this encounter Miscellaneous Notes * Cerner Conversion Note - Kevin Orr MD - 10/30/2019 8:40 PM 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 History source: Patient, daughter. Arrival mode: Private vehicle. History limitation: None. Additional information: Chief Complaint from Nursing Triage Note : Chief Complaint 10/30/2019 18:12 EST Chief Complaint Pt c/o dizziness, crawling sensation, L eye twitching , vision changes since . Seen at [facility] c labs/CT/CXR - dx c anxiety/UDS + for fentanyl. Pt thinks UDS r/t excess benadryl. PCP told to come for poss blood clot. Stopped doxepin. . History of Present Illness The patient presents with dizziness, vertigo and 54-year-old female patient with a history of DM, HTN, COPD, hypothyroidism, migraines, anxiety presents to the emergency room complaining of a five-day history of intermittent sensation of dizziness and a twitching sensation in her left eye and body. Her symptoms are worsened with positional changes, movement, bending over. She was seen in the [facility] emergency room where they did a CT of her head, chest x-ray, laboratory studies and urine drug screen which was positive for fentanyl but did not find any acute abnormalities and said her symptoms were due to her underlying anxiety. Patient reports symptoms have still been since then and her PCP is concerned that she could have an underlying pulmonary embolism and recommended her come to a different emergency room. She denies cough, fevers, chills but does feel little nauseated but has had no vomiting, diarrhea, abdominal pain, flank pain, dysuria, hematuria, frequency. She does describe headache over the last few days but is pretty normal for her to have chronic headaches on a daily basis and this feels similar to her prior migraines.. The onset was 5 days ago. The course/duration of symptoms is fluctuating in intensity. The character of symptoms is lightheaded, off-balance and presyncope. The degree at present is moderate. The exacerbating factor is changing position. The relieving factor is lying down. Risk factors consist of hypertension, diabetes mellitus and multiple medications. Prior episodes: occasional. Therapy today: none. Associated symptoms: headache, denies syncope, denies palpitations, denies altered vision, denies altered speech, denies altered coordination, denies focal weakness, denies altered sensation and denies confusion. Review of Systems Additional review of systems information: All other systems reviewed and otherwise negative. Health Status Allergies: Allergic Reactions (Selected) Severity Not Documented Penicillin- No reactions were documented. Sulfa drugs- No reactions were documented. Toradol- No reactions were documented.. Past Medical/ Family/ Social History Surgical history: No active procedure history items have been selected or recorded.. Family history: No family history items have been selected or recorded.. Social history: Social & Psychosocial Habits No Data Available , Reviewed as documented in chart. Problem list: No qualifying data available , per nurse's notes. Physical Examination Vital Signs Vital Signs/Vital Measures 10/30/2019 21:30 EST Heart Rate Monitored 72 bpm Respiratory Rate 21 Breaths/Min HI Oxygen Saturation 94 % Oxygen Therapy Mode Room air 10/30/2019 21:00 EST Systolic Blood Pressure 150 mmHg HI Diastolic Blood Pressure 95 mmHg HI Mean Arterial Pressure (MAP)-BMDI 116 Heart Rate Monitored 74 bpm Respiratory Rate 36 Breaths/Min HI Oxygen Saturation 96 % Oxygen Therapy Mode Room air 10/30/2019 20:30 EST Systolic Blood Pressure 144 mmHg HI Diastolic Blood Pressure 97 mmHg HI Mean Arterial Pressure (MAP)-BMDI 117 Temperature Source Oral Temperature Mode Fahrenheit Temperature, Fahrenheit 97.7 Deg F Heart Rate Monitored 74 bpm Respiratory Rate 31 Breaths/Min HI Oxygen Saturation 99 % Oxygen Therapy Mode Room air 10/30/2019 18:12 EST Systolic Blood Pressure 124 mmHg Diastolic Blood Pressure 60 mmHg Temperature Source Oral Temperature Mode Fahrenheit Peripheral Pulse Rate 69 bpm Respiratory Rate 20 Breaths/Min Oxygen Saturation 94 % Oxygen Therapy Mode Room air . Measurements 10/30/2019 18:12 EST Height Source Stated Height Entry Format [place] Height/Length, THAI (ft) 5 ft Height/Length THAI 6 Inch CLINICALHEIGHT 167.64 cm [place] Body Weight 58.88 kg Weight Source, ED Critical estimated dosing weight Weight Entry Format [place] Weight Somali lb 250 lb CLINICALWEIGHT 113.64 kg Body Surface Area (BSA) 2.2 m2 Body Mass Index 40.4 kg/m2 >HHI . Oxygen Saturation 10/30/2019 21:30 EST Oxygen Saturation 94 % 10/30/2019 21:00 EST Oxygen Saturation 96 % 10/30/2019 20:30 EST Oxygen Saturation 99 % 10/30/2019 18:12 EST Oxygen Saturation 94 % . General: Alert, no acute distress, Obese. Skin: Warm, intact, no rash, Not pale, Head: Normocephalic. Neck: Supple, no JVD. Eye: Pupils are equal, round and reactive to light, extraocular movements are intact, Sclera: not icteric. Ears, nose, mouth and throat: Oral mucosa moist. Cardiovascular: Regular rate and rhythm, No murmur, Normal peripheral perfusion, No edema. Respiratory: Lungs are clear to auscultation, respirations are non-labored, breath sounds are equal. Chest wall: No tenderness. Back: Nontender, Normal range of motion. Musculoskeletal: Normal ROM. Gastrointestinal: Soft, Nontender, Non distended, Normal bowel sounds. Neurological: Alert and oriented to person, place, time, and situation, No focal neurological deficit observed. Psychiatric: Cooperative. Medical Decision Making Differential Diagnosis: Dizziness, vertigo, generalized weakness, syncope, dysrhythmia, cerebral vascular accident, hyperglycemia, hypoglycemia, dehydration, urinary tract infection, pneumonia, anemia, anxiety. Rationale: 54-year-old female patient presents to emergency room complaining of a five-day history of dizziness, vertigo symptoms, headache and twitching feeling in her eyes and body. EKG was obtained and did not show any acute ischemic changes, laboratory studies were obtained including a troponin, d-dimer. Her chest x-ray did not show acute abnormalities and her d-dimer was elevated. Because of the patient's vertigo symptoms and patient had a negative CT of the head [facility] will proceed with CTA of the head and neck and a CT of the chest to rule out acute PE or other abnormalities in the brain. Patient was hydrated with a liter of normal saline IV fluids and was given Reglan, meclizine with improvement of symptoms. CTAs of the head, neck, chest showed a possible mass in the parotid gland that recommended ENT follow-up and a pulmonary nodule but no other acute abnormalities were seen. It was discussed with the patient and her for her to follow-up with ENT regarding the parotid gland to make sure she has follow-up. She stable to be discharged home with follow-up with her PCP and is advised to return to the emergency room if any acute worsening symptoms. All the questions were answered by patient and family and patient was stable to be discharged home.. Documents reviewed: Emergency department nurses' notes. Orders Include Previous Orders (Selected) Inpatient Orders Ordered Cardiac Monitoring: Consult to Dietitian: Discharge: ED Fall Risk Documented: EKG: Peripheral IV Insertion: Pulse Oximetry Continuous Monitoring: Completed .Automated Differential: .Urinalysis Microscopic: BMP Basic Metabolic Panel: CBC w/ Auto Diff: CR Chest 2 Vws: CTA Chest PE Protocol: CTA Head: CTA Neck: D Dimer Quantitative: Drug Screen Urine 2: ED Adult Fall Risk Assessment: ED Adult Triage: ED C-SSRS: ED Clinical Reconciliation: ED second hand: Extra Blue Tube: Normal Saline Flush: 10 mL, IV Push, 1-Time, PRN: IV Use PT/INR Prothrombin Time: Reglan: 10 mg, IV Push, 1-Time Sodium Chloride 0.9% bolus: 1,000 mL, 1,000 mL/Hr, IV Piggyback, 1-Time Troponin I Ultra: Urinalysis w Culture if Indicated: iopamidol: 125 mL, IV Push, ADHOC meclizine: 25 mg, Oral, 1-Time Discontinued aspirin: 324 mg, Chew, 1-Time Prescriptions Prescribed meclizine 25 mg oral tablet: 1 Tab, Oral, TID, PRN: as needed for dizziness, 30 Tab, 0 Refill(s). 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 Electrocardiogram: Time 10/30/2019 18:11:00, rate 71, normal sinus rhythm, No ST changes, no ectopy, normal AK & QRS intervals, EP Interp. Results review: Lab results : Lab Results 10/30/2019 21:56 EST Urine Type. U CleanCatch Urine Color Yellow Urine Appearance Clear Urine Specific [place] 1.006 Urine pH Dipstick 6.5 Urine Leukocyte Esterase Negative Urine Nitrite Negative Urine Protein Dipstick Negative Urine Glucose Dipstick Negative Urine Ketones Dipstick Negative Urine Urobilinogen Dipstick 0.2 EU/dL Urine Bilirubin Dipstick Negative Urine Blood Dipstick Negative Ur Squamous Epithelial Cells 0-2 /HPF UDS pH 6.5 UDS Amp NEGATIVE UDS Yulissa NEGATIVE UDS Benzo NEGATIVE UDS [place] NEGATIVE UDS Opi NEGATIVE UDS PCP NEGATIVE UDS TCA NEGATIVE UDS THC NEGATIVE 10/30/2019 20:28 EST Sodium Level 138 mmol/L Potassium Level 3.9 mmol/L Chloride Level 109 mmol/L Carbon Dioxide Level 24 mmol/L Anion Gap 9 Glucose Level 115 mg/dL HI Blood Urea Nitrogen 11 mg/dL Creatinine Level 0.90 mg/dL eGFR >60 mL/min/1.73m2 eGFR NonAfrican >60 mL/min/1.73m2 Bun/Creatinine 12.2 Calcium Level 9.8 mg/dL Troponin I Ultra <0.015 ng/mL WBC 11.3 K/uL HI RBC 4.93 Million/uL Hgb 15.7 g/dL Hct 47.1 % HI MCV 95.5 fL HI MCH 31.8 pg MCHC 33.3 Gram/dL Platelet Count 296 K/uL MPV 10.3 fL RDW 14.8 % Neut % 59.4 % Neut # 6.71 K/uL HI Lymph % 28.8 % Lymph # 3.26 x10(3)/uL [place] % 6.5 % [place] # 0.74 K/uL Eos % 4.1 % Eos # 0.46 x10(3)/uL Baso % 0.8 % Baso # 0.09 x10(3)/uL Slide Review No IG# 0.05 x10(3)/uL IG% 0.40 % 10/30/2019 20:19 EST PT 10.6 Second(s) INR 1.0 D Dimer Quant see comment mg/L FEU . Radiology results: Radiology Results (Last 48 hours) [id number] -- 10/30/2019 17:38 CR Chest 2 Vws (10/30/2019 19:19) Result: TWO-VIEW CHEST 10/30/2019 7:22 PMHISTORY: DizzinessCOMPARISON: NoneFINDINGS: The cardiac silhouette is normal in size. The mediastinaland hilar contours are unremarkable. The lungs are clear. There is nopneumothorax. The visualized osseous structures demonstrate no acuteabnormalities.IMPRESSION: No acute findings. Images reviewed, interpreted, and dictated by Dr. James Castillo.Transcribed by Ninoska Wing (R).I have personally viewed, interpreted and dictated the examination. Ihave read and agree with the above final transcribed report. CTA Chest PE Protocol (10/30/2019 23:02) Result: CTA/PE PROTOCOL CHEST CT: 10/30/2019 8:58 PM HISTORY: Positive d-dimer.COMPARISON: None.TECHNIQUE: The patient was injected with IV contrast . Axial imageswere obtained through the chest in a CTA/ PE protocol. 3 DReconstruction images were also performed. This study was performed withtechniques to keep radiation doses as low as reasonably achievable,(ALARA). Individualized dose reduction techniques using automatedexposure control or adjustment of mA and/or kV according to the patientsize were employed.FINDINGS: There is no axillary adenopathy. There is no hilar ormediastinal adenopathy . The heart size is normal. There is nopericardial or pleural effusion . No filling defects are identified tosuggest PE . There is no aortic dissection . Limited images of theupper abdomen are unremarkable . There is mild left lower lobescarring. There is a 5 mm nodule in the lateral aspect of the rightmiddle lobe. IMPRESSION: No PE. 5 mm right upper lobe nodule.Images reviewed, interpreted, and dictated by Dr. James Castillo.Transcribed by Ninoska Wing (R).I have personally viewed, interpreted and dictated the examination. Ihave read and agree with the above final transcribed report. CTA Head (10/30/2019 23:02) Result: CTA HEADHISTORY: ; dizziness, off balanced COMPARISON: NoneTECHNIQUE: Thin section axial CT with IV contrast supplemented withmultiplanar reconstruction under CT Angiogram protocol. 3 Dreconstructions were performed on a separate workstation.FINDINGS: No aneurysm is seen. Major intracranial vessels are patentwithout significant stenosis.. IMPRESSION: Unremarkable CTA head This study was performed using dose reduction techniques to achieveradiation exposure as low as reasonably achievable (ALARA) carotid CTA Neck (10/30/2019 23:02) Result: CTA CAROTIDHISTORY: Dizziness, off balance.COMPARISON: NoneTECHNIQUE: Thin section axial CT with IV contrast supplemented withmultiplanar reconstruction under CT angiogram protocol. 3Dreconstructions were performed on a separate workstation.NASCET criteria and technique was utilized during interpretation.FINDINGS:Aortic arch: Arch shows no significant narrowing. Great vessel originsare widely patent. Right carotid: No significant stenosis is seen of the cervical commonor internal carotid artery.Left carotid: No significant stenosis is seen of the cervical common orinternal carotid artery.Vertebrals: Vertebral arteries are codominant. No significant stenosisis present. There is a 1.4 cm mass in the posterior right parotid. A few othersmaller 5 mm or less nodules are seen in the bilateral parotids.IMPRESSION: 1. No evidence of cervical carotid stenosis.2. Incidental right parotid mass. Recommend ENT consultation. This study was performed using dose reduction techniques to achieveradiation exposure as low as reasonably achievable (ALARA). . Impression and Plan Diagnosis Headache, chronic daily - Discharge, Emergency medicine, Medical Mass of parotid gland - Discharge, Emergency medicine, Medical Lung nodule - Discharge, Emergency medicine, Medical Dizziness - Discharge, Emergency medicine, Medical Vertigo - Discharge, Emergency medicine, Medical Plan Condition: Improved, Stable. Disposition: Discharged Admit/Transfer/Discharge: Discharge (Order): Start: 10/31/2019 0:08 EST, Discharge to: Home. Prescriptions: Prescription Backup Administrative Coordinator Pharmacy: meclizine 25 mg oral tablet (Prescribe): 1 Tab, Oral, TID, PRN: as needed for dizziness, 30 Tab, 0 Refill(s). Patient was given the following educational materials: Vertigo, Migraine Headache, Dizziness, Pulmonary Nodule. Follow up with: JEANNIE HERNANDEZ Within 2 to 3 days Call for follow up appointment with your PCP and I also recommend evaluation by an ENT as they found a small cyst in the right parotid gland on your face and recommend specialty evaluation. Use the meclizine as needed for symptoms, drink lots of water fluids. Return with any acute worsening symptoms.; Patient Resource Center , only if needed Patient states Jeannie Hernandez is her Primary Care Provider. Please contact the Patient Resource Center at if you need assistance scheduling a Specialist or Primary Care Provider in the future.. Counseled: Patient, Family, Regarding diagnosis, Regarding diagnostic results, Regarding treatment plan, Patient indicated understanding of instructions. documented in this encounter Plan of Treatment Not on file documented as of this encounter Visit Diagnoses Not on filedocumented in this encounter
--- OUTSIDE RECORDS SUMMARY | 2025-03-14 14:57 | XMS_ITS | Encounter Summary ---
Author Organization [employer] ([place], [place], [place], [place]) Address [address] [place] [address] Care Team Providers Care Monitoring Engineer Name Role Phone Unavailable Primary Care Provider Unavailabl e Encounter Details Date Type Department Care Team (Late st Contact Info) Description 10/30/2019 Transcribed Document [facility] [place] Family Medicine [address] [place] [address] ProviderKevin MD [facility] [place], [place] [id number] Social History Tobacco Use Types Packs/Day Years Used Date Smoking Tobacco: Never Assessed Comments Unknown Sex and Gender Information Value Date Recorded Sex Assigned at Not on file Legal Sex Female 6:40 PM CDT Gender Identity Not on file Sexual Orientation Not on file documented as of this encounter Miscellaneous Notes * Cerner Conversion Note - Kevin Orr MD - 10/30/2019 5:38 PM 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 ED Assessment Entered On: 10/30/2019 21:46 EST Performed On: 10/30/2019 21:43 EST by Monika Edwards RN ED Quick Look Assessment Level of Consciousness : Alert, Awake Affect/Behavior : Appropriate, Calm, Cooperative Orientation : Oriented x 4 Monika Edwards RN - 10/30/2019 21:43 EST ED General-Functional Assess Information Obtained From : Patient, Care provider Communication Barrier : None Primary Language : Filipino Any Spiritual/Cultural Needs or Requests : No Currently in Unsafe Situation : No Monika Edwards RN - 10/30/2019 21:43 EST Social Habits Smoking Status : Smoker, current status unknown Smokeless Tobacco Status : Never Desires Tobacco Cessation Medication : No Reason for No Tobacco Cessation Medication : ED/procedural patient only Desires Tobacco Cessation Calc : 1 Monika Edwards RN - 10/30/2019 21:43 EST Social History (As Of: 10/30/2019 21:46:37 EST) Respiratory Respiratory Assessment WDL : WDL (Comment: Cough but is baseline [Monika Edwards RN - 10/30/2019 21:43 EST] ) Monika Edwards RN - 10/30/2019 21:43 EST Gastrointestinal ED Gastrointestinal Assessment WDL : WDL Monika Edwards RN - 10/30/2019 21:43 EST Musculoskeletal Musculoskeletal Assessment WDL : WDL with exceptions Musculoskeletal Assessment Comment : States that she has had muscle twitching and that her nerves are spasming Monika Edwards RN - 10/30/2019 21:43 EST Neurologic ASMT, ED Neurologic Assessment WDL : WDL with exceptions (Comment: Dizziness, weak, pain behind the eyes, states she has seen floaters. [Monika Edwards RN - 10/30/2019 21:43 EST] ) Monika Edwards RN - 10/30/2019 21:43 EST documented in this encounter Plan of Treatment Not on file documented as of this encounter Visit Diagnoses Not on filedocumented in this encounter
--- NOTE | 2025-03-14 15:06 | PC.NURSE ---
DR SEXTON AT BEDSIDE
--- NOTE | 2025-03-14 15:13 | CT_ITS ---
PROCEDURE INFORMATION: Exam: CTA Chest With Contrast Exam date and time: 03/14/2025 4:01 PM Age: 59 years old Clinical indication: Shortness of breath; Additional info: Hypoxia, shortness of breath TECHNIQUE: Imaging protocol: Computed tomographic angiography of the chest with contrast. Exam focused on the arteries. 3D rendering (Not supervised by radiologist): MIP and/or 3D reconstructed images were created by the technologist. Radiation optimization: All CT scans at this facility use at least one of these dose optimization techniques: automated exposure control; mA and/or kV adjustment per patient size (includes targeted exams where dose is matched to clinical indication); or iterative reconstruction. Contrast material: ISO 370; Contrast volume: 70 ml; Contrast route: INTRAVENOUS (IV); COMPARISON: CR XR CHEST PORTABLE 02/07/2023 6:32 AM FINDINGS: Pulmonary arteries: Normal. No pulmonary emboli. Aorta: Unremarkable. No aortic aneurysm. No aortic dissection. Veins: Reflux of contrast into the mildly dilated inferior vena cava and hepatic veins. Thyroid: Absent or atrophic thyroid. Lungs: See Pleural spaces finding. Pleural spaces: Small right pleural effusion with compressive atelectasis in the posterior right lower lobe. Small amount of fluid lower right major fissure with a mild degree of adjacent atelectasis/minimal infiltration within the adjacent posterior right middle lobe. Subsegmental atelectasis left lower lobe. Heart: Enlarged heart. Lymph nodes: Unremarkable. No enlarged lymph nodes. Bones/joints: ACDF lower cervical spine. Soft tissues: Unremarkable. IMPRESSION: 1. No acute pulmonary embolus. 2. No thoracic aortic aneurysm or dissection appreciated. 3. Enlarged heart, small right pleural effusion and reflux of contrast into the dilated inferior vena cava. The above findings suggest the presence of mild congestive heart failure. 4. Mild compressive atelectasis within the posterior right lower lobe and posterior right middle lobe. The possibility of a very mild degree of underlying pneumonia is not completely excluded. 5. Other findings above.
--- NOTE | 2025-03-14 15:14 | ECG_ITS ---
APPROVED REPORT Exam: Resting ECG HR:64 bpm ECG Measurements Heart Rate 64 AXES MD 190 P 57 QRSd 93 QRS 65 QT 397 T 3 QTc 406 Conclusion SINUS RHYTHM LOW QRS VOLTAGE IN PRECORDIAL LEADS [QRS DEFLECTION < 1.0 mV IN CHEST LEADS] SEPTAL MYOCARDIAL INFARCTION , PROBABLY OLD [40+ ms Q WAVE IN V1/V2] ABNORMAL ECG UNCONFIRMED REPORT Normal sinus rhythm. No ST elevations or depressions. QTc normal at 406. Ventricular rate of 64 bpm Electronically signed by : KRIS SEXTON, 03/15/2025 21:35:08
--- NOTE | 2025-03-14 15:15 | HMH.EDGENADL ---
Discharge Plan Disposition Patient Disposition: Home, Self-Care Prescriptions Prescriptions: New levofloxacin 750 mg tablet 750 mg PO DAILY 7 Days Qty: 7 0RF No Action pantoprazole 40 mg tablet,delayed release (DR/EC) 40 mg PO DAILY Linzess 72 mcg capsule 72 mcg PO DAILY albuterol sulfate 2.5 mg /3 mL (0.083 %) solution for nebulization 2.5 mg inhalation Q6HP PRN (Reason: Shortness Of Breath) hydrocodone-acetaminophen 10-325 mg tablet 1 tab PO QID Patient Comments: TAKE 1 TABLET 4 TIMES EACH DAY gabapentin 300 mg capsule 300 mg PO BID Patient Comments: TAKE 1 CAPSULE 2 TIMES EACH DAY Premarin 0.625 mg/gram cream 0.625 mg vaginal DAILY Patient Comments: APPLY A PEA SIZED AMOUNT TO THE VAGINA 1 TIME EACH DAY citalopram 20 mg tablet See Rx Instructions .ROUTE .COMPLEX Qty: 90 3RF Dose Instruction: TAKE 1 TABLET EVERY DAY FOR MOOD Rx Instructions: TAKE 1 TABLET EVERY DAY FOR MOOD lisinopril 5 mg tablet See Rx Instructions .ROUTE .COMPLEX Qty: 90 3RF Dose Instruction: TAKE 1 TABLET EVERY DAY FOR HYPERTENSION Rx Instructions: TAKE 1 TABLET EVERY DAY FOR HYPERTENSION metformin 500 mg tablet See Rx Instructions .ROUTE .COMPLEX Qty: 360 3RF Dose Instruction: TAKE 2 TABLETS TWICE DAILY FOR DIABETES Rx Instructions: TAKE 2 TABLETS TWICE DAILY FOR DIABETES rosuvastatin 20 mg tablet See Rx Instructions .ROUTE .COMPLEX Qty: 90 3RF Dose Instruction: TAKE 1 TABLET EVERY DAY FOR CHOLESTEROL Rx Instructions: TAKE 1 TABLET EVERY DAY FOR CHOLESTEROL cyclobenzaprine 10 mg tablet 10 mg PO TID PRN (Reason: muscle spasm) Qty: 60 1RF promethazine 25 mg tablet 25 mg PO Q6H PRN (Reason: nausea and vomiting) Qty: 20 1RF insulin glargine [Lantus Solostar U-100 Insulin] 100 unit/mL (3 mL) insulin pen 94 unit SQ HS 30 Days Qty: 28.2 4RF Rx Instructions: PT NEEDS APPT topiramate 100 mg tablet 100 mg PO BID Qty: 180 3RF hydroxyzine pamoate 25 mg capsule See Rx Instructions .ROUTE .COMPLEX Qty: 180 10RF Dose Instruction: TAKE 1 CAPSULE THREE TIMES DAILY NEEDED FOR ANXIETY Rx Instructions: TAKE 1 CAPSULE THREE TIMES DAILY NEEDED FOR ANXIETY nystatin 100,000 unit/gram cream 1 applic topical BID Qty: 30 2RF lidocaine 4 % aerosol,spray 1 spray topical Q6H Qty: 113 2RF albuterol sulfate 90 mcg/actuation HFA aerosol inhaler 2 puff inhalation Q6HP PRN (Reason: shortness of breath or wheezing) Qty: 6.7 3RF Myrbetriq 50 mg tablet extended release 24 hr See Rx Instructions .ROUTE .COMPLEX Qty: 90 3RF Dose Instruction: TAKE 1 TABLET EVERY DAY FOR BLADDER Rx Instructions: TAKE 1 TABLET EVERY DAY FOR BLADDER fluticasone propionate 50 mcg/actuation spray,suspension See Rx Instructions .ROUTE .COMPLEX Qty: 48 3RF Dose Instruction: USE 2 SPRAYS NASALLY EVERY DAY NEEDED FOR NASAL CONGESTION Rx Instructions: USE 2 SPRAYS NASALLY EVERY DAY NEEDED FOR NASAL CONGESTION (DME) pen needle, diabetic [Droplet Pen Needle] 32 gauge x 5/32 needle See Rx Instructions .ROUTE .COMPLEX Qty: 300 3RF Dose Instruction: USE DIRECTED Rx Instructions: USE DIRECTED montelukast 10 mg tablet See Rx Instructions .ROUTE .COMPLEX Qty: 90 3RF Dose Instruction: TAKE 1 TABLET EVERY DAY FOR ALLERGIES Rx Instructions: TAKE 1 TABLET EVERY DAY FOR ALLERGIES meclizine 25 mg tablet 25 mg PO DAILY PRN (Reason: Vertigo) Qty: 90 0RF levothyroxine 175 mcg tablet See Rx Instructions .ROUTE .COMPLEX Qty: 90 0RF Dose Instruction: TAKE 2 TABLETS ON TUESDAY, TUESDAY AND TAKE 1 TABLET ALL OTHER DAYS Rx Instructions: TAKE 2 TABLETS ON TUESDAY, TUESDAY AND TAKE 1 TABLET ALL OTHER DAYS ondansetron 4 mg tablet,disintegrating 4 mg PO TIDP PRN (Reason: Nausea And Vomiting) Referrals Follow up/Referrals: Lm Chris MD [Primary Care Provider, Internal Medicine] - See instructions Activity Restrictions/Add. Instructions Additional Instructions/Restrictions: I encourage you to follow-up with your primary care physician tomorrow as your liver enzymes were slightly elevated and your magnesium was a little low. Use the oxygen at all times until you are seen by your primary care physician. You are being treated for pneumonia with levofloxacin, an antibiotic. Take this as prescribed. If you develop any new or worsening symptoms, or if you become concerned for your health for any reason, return to the emergency department for evaluation. Clinical Impressions Clinical Impression: Pneumonia, Elevated liver enzymes, Hypomagnesemia, Hypoxia Print Language Print Language: Czech Discharge ED Provider: Abelardo Treadwell General Adult HPI General Chief complaint: Shortness of Breath/Dyspnea Stated complaint: o2 low, dizzy Time Seen by Provider: 03/14/25 15:03 Mode of Arrival: Wheelchair Source of Information: Patient Description of Symptoms (Recalled from ER Triage Doc. by RN): pt reports increased shortness of breath, coughing up green. weakness. x1 week History of Present Illness HPI narrative: Debbie Pagan is a 59F with a past medical history of COPD (not on oxygen at baseline), hypothyroidism, diabetes mellitus, hypertension, hyperlipidemia, anemia who presents to the emergency department for complaints of shortness of breath and hypoxia. Patient states that over the last 5 days, she has been increasingly fatigued and has been short of breath with right-sided chest pain with deep breathing. She states that she has also developed a productive cough of green sputum. She has had subjective chills and woke up in a pool sweat this morning. She states that sometimes she has swelling in her right leg. She was seen by her primary care physician who noted that her oxygen level was low and sent her to the emergency department for evaluation. Related Data Home Medications ?Medication ?Instructions ?Recorded ?Confirmed albuterol sulfate 2.5 mg/3 mL 2.5 mg inhalation Q6HP PRN 05/19/22 03/14/25 (0.083 %) solution for nebulization Shortness Of Breath pantoprazole 40 mg tablet,delayed 40 mg PO DAILY Acid reflux 10/06/22 03/14/25 release ondansetron 4 mg disintegrating 4 mg PO TIDP PRN Nausea And 02/07/23 03/14/25 tablet Vomiting conjugated estrogens 0.625 mg/gram 0.625 mg vaginal DAILY 11/15/24 03/14/25 vaginal cream (Premarin) gabapentin 300 mg capsule 300 mg PO BID 11/15/24 03/14/25 hydrocodone 10 mg-acetaminophen 1 tab PO QID 11/15/24 03/14/25 325 mg tablet linaclotide 72 mcg capsule 72 mcg PO DAILY 03/14/25 03/14/25 (Linzess) Previous Rx's ?Medication ?Instructions ?Recorded topiramate 100 mg tablet 100 mg PO BID MIGRAINE #180 tabs 05/27/23 hydroxyzine pamoate 25 mg capsule See Rx Instructions .Route 07/18/23 .COMPLEX #180 caps nystatin 100,000 unit/gram topical 1 applic topical BID yeast 01/18/24 cream infection #30 grams lidocaine 4 % topical spray 1 spray topical Q6H shingles #113 03/20/24 grams albuterol sulfate 90 mcg/actuation 2 puff inhalation Q6HP PRN 03/28/24 aerosol inhaler shortness of breath or wheezing #6.7 grams fluticasone propionate 50 See Rx Instructions .Route 08/06/24 mcg/actuation nasal .COMPLEX #48 grams spray,suspension mirabegron 50 mg tablet,extended See Rx Instructions .Route 08/06/24 release 24 hr (Myrbetriq) .COMPLEX #90 tabs citalopram 20 mg tablet See Rx Instructions .Route 11/15/24 .COMPLEX #90 tabs cyclobenzaprine 10 mg tablet 10 mg PO TID PRN muscle spasm #60 11/15/24 tabs insulin glargine 100 unit/mL (3 94 unit (0.94 mL) SQ HS 30 days 11/15/24 mL) subcutaneous pen (Lantus #28.2 mL Solostar U-100 Insulin) lisinopril 5 mg tablet See Rx Instructions .Route 11/15/24 .COMPLEX #90 tabs metformin 500 mg tablet See Rx Instructions .Route 11/15/24 .COMPLEX #360 tabs promethazine 25 mg tablet 25 mg PO Q6H PRN nausea and 11/15/24 vomiting #20 tabs rosuvastatin 20 mg tablet See Rx Instructions .Route 11/15/24 .COMPLEX #90 tabs pen needle, diabetic 32 gauge x #300 ea 11/21/24 5/32 (Droplet Pen Needle) montelukast 10 mg tablet See Rx Instructions .Route 01/29/25 .COMPLEX #90 tabs meclizine 25 mg tablet 25 mg PO DAILY PRN Vertigo #90 tabs 02/04/25 levothyroxine 175 mcg tablet See Rx Instructions .Route 03/13/25 .COMPLEX #90 tabs levofloxacin 750 mg tablet 750 mg PO DAILY 7 days #7 tabs 03/14/25 Allergies Allergy/AdvReac Type Severity Reaction Status Date / Time clotrimazole (CLOTRIMAZOLE) Allergy Unknown Verified 03/14/25 13:07 ketorolac (KETOROLAC) Allergy Unknown Verified 03/14/25 13:07 penicillin G (PENICILLIN G) Allergy Unknown Verified 03/14/25 13:07 Penicillins (PENICILLINS) Allergy Unknown Verified 03/14/25 13:07 Sulfa (Sulfonamide Allergy Unknown Verified 03/14/25 13:07 Antibiotics) (SULFA (SULFONAMIDE ANTIBIOTICS)) sulfamethoxazole Allergy Unknown Verified 03/14/25 13:07 (SULFAMETHOXAZOLE) trimethoprim (TRIMETHOPRIM) Allergy Unknown Verified 03/14/25 13:07 PFSH [facility] Disclaimer: The information contained in this section may have been updated after the patient was seen, as this information can be updated by other users. Medical History TIA (transient ischemic attack) Epidermal cyst Tongue abnormality H/O cyst of breast Disorder of neuromuscular transmission Encounter for debridement of skin H/O renal calculi Lichen sclerosus Morbid obesity Fibromyalgia Stomach ulcer Diabetes mellitus Psoriasis Depression Asthma Hearing loss DELIA (obstructive sleep apnea) Hypothyroid Allergies Kidney stones Hyperlipidemia Chronic GERD COPD (chronic obstructive pulmonary disease) Chronic pain Arthritis Surgical History H/O bladder repair surgery H/O colonoscopy Hx of esophagogastroduodenoscopy H/O toe surgery H/O total knee replacement History of ankle surgery H/O oral surgery Hx of cholecystectomy H/O neck surgery History of total abdominal hysterectomy and bilateral salpingo-oophorectomy H/O hand surgery H/O section Family History Mother Arthritis Hypertension Coronary artery disease Hyperlipidemia Father Arthritis Hypertension Hyperlipidemia Coronary artery disease Grandmother Diabetes Social History Smoking Status: Current every day smoker tobacco type: cigarettes packs per day: 1 alcohol intake: never current occupational status: disabled Travel in the last 8 weeks?: None household members: spouse current occupational exposures/hazards: No caffeine: Yes Have you lived/traveled outside [place] in past 30 days?: No Contact w/someone who lives/traveled outside [place] past 30 days?: No Exposure to someone with infectious disease in past 14 days?: No Do you have a fever (greater than 100.4 F or 38 C)?: No Have you tested positive for COVID-19?: No Exposed to someone with COVID-19 in past 14 days?: No Do you have a sore throat?: No Do you have a cough?: No Do you have any weakness?: No Do you have any diarrhea?: No Are you experiencing any unusual bleeding?: No Do you have any muscle aches/pain?: No Do you have any abdominal pain?: No Are you experiencing loss of taste or smell?: No Other Medical History Have you received the Flu Vaccine for this season: No Have you received the Pneumonia Vaccine: No ROS Obtained: Yes Systems reviewed as appropriate & no additional complaints except as documented Physical Exam General General appearance: alert, in no apparent distress and obese Head Head exam: atraumatic Eye Eye exam: Present normal appearance ENT ENT exam: Present normal external ear exam Neck Neck exam: Present full ROM Chest Chest inspection: Present symmetric chest wall rise Respiratory Respiratory exam: Present normal lung sounds bilaterally, wheezes (mild end expiratory) and other (Crackles at the right base. Nasal cannula in place on 2 L); Absent respiratory distress Cardiovascular Cardiovascular exam: Present regular rate and normal rhythm Abdominal Exam Abdominal exam: Present soft; Absent tenderness or guarding Extremities Exam Extremities exam: Present normal inspection; Absent edema Back Exam Back exam: Present normal inspection Neurological Exam Neurological exam: Present alert and oriented X3 Psychiatric Psychiatric exam: Present normal affect Skin Skin exam: Present warm and dry Medical Decision Making Medical Records Screening: Per USPSTF and CDC recommendations, given the prevalence of disease in our region, it is our hospital?s policy to screen for HIV and viral Hepatitis for all patients aged 18 and over and those with ongoing risk factors. Chandra Inquiry Pt receiving controlled substance: No Vital Signs: 03/14/25 14:41 03/14/25 15:00 03/14/25 15:30 Temperature 98.4 F Temperature Source Oral Pulse Rate 66 64 Pulse Rate [Right] 66 Respiratory Rate 24 20 19 Blood Pressure 159/95 H 174/98 H Blood Pressure [Right Arm] 170/96 H Blood Pressure Mean 116 110 Blood Pressure Mean [Right Arm] 120 02 Sat by Pulse Oximetry 87 L 96 97 Oxygen Delivery Method Room Air Nasal Cannula Nasal Cannula Oxygen Flow Rate (LPM) 2 2 03/14/25 16:18 03/14/25 16:30 03/14/25 17:00 Temperature Temperature Source Pulse Rate 75 80 84 Pulse Rate [Right] Respiratory Rate 21 20 19 Blood Pressure 137/91 H 126/67 141/83 H Blood Pressure [Right Arm] Blood Pressure Mean 117 86 98 Blood Pressure Mean [Right Arm] 02 Sat by Pulse Oximetry 94 L 93 L 92 L Oxygen Delivery Method Nasal Cannula Nasal Cannula Nasal Cannula Oxygen Flow Rate (LPM) 2 2 2 03/14/25 17:30 03/14/25 18:00 Temperature Temperature Source Pulse Rate 80 72 Pulse Rate [Right] Respiratory Rate 19 16 Blood Pressure 145/78 H 138/78 Blood Pressure [Right Arm] Blood Pressure Mean 97 104 Blood Pressure Mean [Right Arm] 02 Sat by Pulse Oximetry 93 L 94 L Oxygen Delivery Method Nasal Cannula Nasal Cannula Oxygen Flow Rate (LPM) 2 2 Lab Data Lab Results 03/14/25 14:45: WBC 11.8 H, RBC 5.54 H, Hgb 14.1, Hct 46.1, MCV 83.2, MCH 25.5 L, MCHC 30.6 L, RDW 16.2, Plt Count 257, MPV 9.4, Neut % (Auto) 68.8, Lymph % (Auto) 19.9, [place] % (Auto) 9.3, Eos % (Auto) 0.7, Baso % (Auto) 0.8, Neut # (Auto) 8.1 H, Lymph # (Auto) 2.3, [place] # (Auto) 1.1 H, Eos # (Auto) 0.1, Baso # (Auto) 0.1, Sodium 132 L, Potassium 4.2, Chloride 94 L, Carbon Dioxide 33 H, Anion Gap 9.2, BUN 12, Creatinine 0.60, Estimated Creat Clear 93, Estimated GFR 102, Est GFR ( Amer) 123, Glucose 52 L, Calcium 8.7, Magnesium 1.5 L, Total Bilirubin 0.5, AST 133 H, ALT 115 H, Alkaline Phosphatase 180 H, Troponin I 0.05 H, C-Reactive Protein 11.3 H, Total Protein 7.2, Albumin 3.6, Globulin 3.6 H, Albumin/Globulin Ratio 1.0 L 03/14/25 15:20: SARS-CoV-2 (PCR) Not detected, Influenza A Untype (PCR) Not detected, Influenza Type B (PCR) Not detected 03/14/25 15:34: VBG pH 7.38, VBG pCO2 53.3 H, VBG pO2 63.2 H, VBG HCO3 31.0 H, VBG Total CO2 32.7 H, VBG O2 Saturation 94.6 H, VBG Base Excess 6.0 H, VBG Lactic Acid 1.4 03/14/25 17:52: Troponin I 0.05 H 03/14/25 14:45 03/14/25 14:45 Orders (Tests/Meds): ED MEDICATIONS Generic Name Dose Route Start Last Admin Trade Name Freq PRN Reason Stop Dose Admin Sodium Chloride 10 ml 03/14/25 15:59 03/14/25 16:09 Sodium Chloride 0.9% 10ml Syr (Rad Only) IV 04/13/25 15:58 10 ml NEEDED PRN Administration Maintain IV Site Discontinued Medications Generic Name Dose Route Start Last Admin Trade Name Freq PRN Reason Stop Dose Admin Albuterol/Ipratropium 3 ml 03/14/25 15:14 03/14/25 15:23 Ipratropium/Albuterol 3 Ml Neb IH 03/14/25 15:15 3 ml ONCE ONE Administration Levofloxacin/Dextrose 750 mg in 150 mls @ 100 mls/hr 03/14/25 16:14 03/14/25 16:20 Levofloxacin 750mg/150ml Premix IV 03/14/25 17:43 100 mls/hr ONCE ONE Administration Magnesium Sulfate 2 gm in 50 mls @ 50 mls/hr 03/14/25 16:40 03/14/25 16:52 Magnesium Sulfate 2gm/50ml Premix IV 03/14/25 17:39 50 mls/hr ONCE ONE Administration Iopamidol 70 ml 03/14/25 15:59 03/14/25 16:09 Iopamidol-370 (76%);100ml Bottle IV 03/14/25 16:00 70 ml ONCE ONE Administration Sodium Chloride 40 ml 03/14/25 15:59 03/14/25 16:09 0.9 % Sodium Chloride 50 Ml Vial IV 03/14/25 16:00 40 ml ONCE ONE Administration ORDERS Category Date Time Status CT angio chest PE protocol Stat Cat Scan 03/14/25 15:13 Completed CBC w/Auto Diff [Complete Blood Count Auto Diff] Stat Lab 03/14/25 14:45 Completed CMP [Comprehensive Metabolic Panel] Stat Lab 03/14/25 14:45 Completed CRP [C-Reactive Protein] Stat Lab 03/14/25 14:45 Completed Magnesium Stat Lab 03/14/25 14:45 Completed Rapid PCR Covid and Flu A/B Stat Lab 03/14/25 15:20 Completed Troponin I Q3H Lab 03/14/25 17:52 Completed Troponin I Q3H Lab 03/14/25 21:15 Ordered Troponin I Stat Lab 03/14/25 14:45 Completed VBG [Venous Blood Gas] Stat RT 03/14/25 15:34 Completed EKG Request [ECG Request] Stat Y 03/14/25 15:14 Ordered Medical Decision Narrative: Debbie Pagan is a 59F with a past medical history of COPD (not on oxygen at baseline), hypothyroidism, diabetes mellitus, hypertension, hyperlipidemia, anemia who presents to the emergency department for complaints of shortness of breath and hypoxia. Patient states that over the last 5 days, she has been increasingly fatigued and has been short of breath with right-sided chest pain with deep breathing. She states that she has also developed a productive cough of green sputum. She has had subjective chills and woke up in a pool sweat this morning. She states that sometimes she has swelling in her right leg. She was seen by her primary care physician who noted that her oxygen level was low and sent her to the emergency department for evaluation. On arrival, patient is hypertensive with blood pressure 170/96, heart rate within normal limits, breathing 24 times a minute with initial oxygen saturation 87% on room air was put on 2 L nasal cannula upon arrival. At the time my evaluation, she was on 2 L nasal cannula at 96% SpO2. Afebrile. Physical exam, stated above, revealed an ill but nontoxic-appearing female in no acute respiratory distress. She is speaking in full sentences. She has some mild end expiratory wheezing and has crackles in the right base on lung exam. Cardiac exam is grossly unremarkable. She has no significant edema in her bilateral lower extremities. Differential diagnosis includes, but is not limited to: Pneumonia, empyema, COPD exacerbation, ACS, CHF, viral respiratory illness, pleurisy, pulmonary embolism, among others. The most morbid conditions were considered and workup was based on these. Workup in the emergency room included: CT PE protocol, EKG, troponin, BNP, VBG with lactate, CBC, CMP, magnesium level, COVID/flu swab. Patient was treated with a DuoNeb treatment. EKG interpreted by me personally demonstrated normal sinus rhythm with a ventricular rate of [address] elevation or depression. QTc normal at 427 CT interpreted by me personally prior to official radiology reads. Consolidation in right lower lobe concerning for pneumonia. No evidence of pulmonary embolism. Will give patient 750 mg IV Levaquin (allergic to penicillins). Patient does have a mild leukocytosis with white blood cell count of 11.8 but VBG with no acidosis and lactate normal at 1.4. Patient was initially mildly tachypneic but is no longer tachypneic. She has been afebrile and not tachycardic throughout her ED visit. She does not meet sepsis criteria. Magnesium mildly low at 1.5 (will replete with 2 g IV magnesium sulfate). Patient's liver enzymes are mildly elevated with AST of 133, ALT of 115, alk phos of 180, however she has had mildly elevated AST and alk phos in the past (most recently 44 and 142 respectively back in November). Initial troponin mildly elevated at 0.05, will get 3-hour repeat troponin. Repeat troponin unchanged at 0.05. CRP mildly elevated at 11.3 likely given patient's pneumonia. Negative COVID/flu swab. Arranged patient to have oxygen therapy at home given she has required 2 L nasal cannula O2 here in the emergency department. Will send prescription for Levaquin to take at home. Encouraged her to follow-up with her primary care physician tomorrow given her low magnesium and slightly elevated liver enzymes. Given she does not meet sepsis criteria, is felt that she is appropriate for treatment of her pneumonia at home with plan to follow-up with her primary care physician tomorrow. This was discussed with the patient. She was in agreement with this plan. Strict return precautions were provided. She demonstrated understanding and was in agreement with this plan. She was then discharged from the emergency department in stable condition. Critical Care Critical Care Time Critical Care Time: No
[2025-03-14 15:20] LABS: Hematocrit 46.1 % (37.0-47.0); Hemoglobin 14.1 g/dL (12.2-16.2); Immature Granulocytes % 0.5 %; Mean Corpuscular HGB Conc 30.6 g/dL (31.8-35.4); Mean Corpuscular Hemoglobin 25.5 pg (27.0-31.2); Mean Corpuscular Volume 83.2 fl (81-99); Nucleated Red Blood Cells % 0.7 %; Platelet Count 257 K/mm3 (142-424); Red Blood Count 5.54 M/mm3 (4.20-5.40); Red Cell Distribution Width-SD 47.9 fL; White Blood Count 11.8 K/mm3 (4.8-10.8)
[2025-03-14] MEDS: IPRATROPIUM/ALBUTEROL 3 ML NEB IH (15:23)
[2025-03-14 15:24] LABS: Coronavirus 19, PCR Not Detected (NotDetected); Influenza A, PCR Not Detected (NotDetected); Influenza B, PCR Not Detected (NotDetected)
[2025-03-14 15:25] LABS: Albumin Level 3.6 g/dl (3.5-5.0); Chloride 94 mmol/L (98-107); Potassium 4.2 mmoL/L (3.5-5.1); Sodium 132 mmol/L (136-145)
[2025-03-14 15:27] LABS: Alanine Aminotransferase 115 U/L (12-78); Aspartate Amino Transferase 133 U/L (14-36); Blood Urea Nitrogen 12 mg/dl (7-17); Creatinine Clearance Estimated 93 mL/min (50-200); Creatinine,Serum 0.60 mg/dl (0.52-1.04); Estimated Glomerular Filt Rate 102 ml/min (>60); GFR (African American) 123 ML/MIN (>60)
[2025-03-14 15:28] LABS: Albumin/Globulin Ratio 1.0 (1.1-1.8); Alkaline Phosphatase 180 U/L (38-126); Anion Gap 9.2 mEq/L (5-15); Bilirubin,Total 0.5 mg/dl (0.2-1.3); Calcium 8.7 mg/dl (8.4-10.2); Carbon Dioxide 33 mmol/L (22.0-30.0); Globulin 3.6 g/dL (1.3-3.2); Glucose 52 mg/dl (74-100); Magnesium 1.5 mg/dl (1.6-2.3); Total Protein,Serum 7.2 g/dl (6.3-8.2)
[2025-03-14 15:34] LABS: C-Reactive Protein 11.3 mg/L (0-4)
[2025-03-14 15:35] LABS: Lactate Venous 1.4 mmol/L (0.4-2.0); VBG HCO3 31.0 mmol/L (23-30); VBG PH 7.38 mmol/L (7.31-7.41); VBG PO2 63.2 mmol/L (28-40)
[2025-03-14 15:37] LABS: VBG PCO2 53.3 mmol/L (35-51)
[2025-03-14 15:42] LABS: Troponin I 0.05 ng/ml (0.00-0.034)
[2025-03-14] MEDS: 0.9 % SODIUM CHLORIDE 50 ML VIAL 40 ML IV (16:09)
[2025-03-14] MEDS: SODIUM CHLORIDE 0.9% 10ML SYR (RAD ONLY) 10 ML IV (16:09)
[2025-03-14] MEDS: IOPAMIDOL-370 (76%);100ML BOTTLE 70 ML IV (16:09)
--- NOTE | 2025-03-14 16:10 | PC.NURSE ---
FSBS is 42, RN notified
--- NOTE | 2025-03-14 16:19 | PC.NURSE ---
MD aware of BG, patient alert and oriented, given [place], will reassess.
[2025-03-14] MEDS: LEVOFLOXACIN/D5W 750 MG/150 ML 750 MG/150 ML PIGGYBACK 100 MG IV (16:20)
--- NOTE | 2025-03-14 16:38 | PC.NURSE ---
Patient FSBG 71. Dr. Treadwell aware, states we will recheck patient again in 15 minutes,
[2025-03-14] MEDS: MAGNESIUM SULFATE IN WATER 2 GM/50 ML PIGGYBACK IV (16:52)
--- NOTE | 2025-03-14 17:01 | PC.NURSE ---
FSBS 102, RN Notified
[2025-03-14 18:21] LABS: Troponin I 0.05 ng/ml (0.00-0.034)
--- NOTE | 2025-03-14 18:29 | PC.NURSE ---
[facility] CONTACTED AT THIS TIME FOR HOME O2
--- NOTE | 2025-03-14 18:55 | PC.NURSE ---
O2 REQUEST FAXED TO [facility]
--- NOTE | 2025-03-14 19:56 | PC.NURSE ---
[facility] came to get patient set up with home oxygen. patient verbalized understanding and was discharged from ED per MD orders.
== END 2025-03-14 19:56 | disposition home or self-care (01) ==
PROVIDERS: Emergency Provider Student in an Organized Health Care Education/Training Program; PCP Family Medicine
DX: J18.9 Pneumonia, unspecified organism (principal); R09.02 Hypoxemia; E83.42 Hypomagnesemia; R74.8 Abnormal levels of other serum enzymes; F17.210 Nicotine dependence, cigarettes, uncomplicated
CPT/HCPCS: 71275; 80053; 82803; 83735; 84484; 85025; 86140; 87636; 93005; 96365; 96366; 99285; J1956; J3475; Q9967

== ENCOUNTER 2025-03-19 08:49 | Emergency (ER) | payer MEDICARE, SELFPAY ==
[2025-03-19] VITALS (19 sets, daily range): BP systolic 112–162; BP diastolic 43–71; PULSE 70–86; RESP 16–20; TEMP 36.6–36.9; O2SAT 87–98; BMI 43.5
--- NOTE | 2025-03-19 08:55 | ED_ITS ---
Discharge Plan Disposition Patient Disposition: Home, Self-Care Condition: Good Prescriptions Prescriptions: New prednisone 20 mg tablet 40 mg PO DAILY Qty: 20 0RF No Action pantoprazole 40 mg tablet,delayed release (DR/EC) 40 mg PO DAILY Linzess 72 mcg capsule 72 mcg PO DAILY albuterol sulfate 2.5 mg /3 mL (0.083 %) solution for nebulization 2.5 mg inhalation Q6HP PRN (Reason: Shortness Of Breath) hydrocodone-acetaminophen 10-325 mg tablet 1 tab PO QID Patient Comments: TAKE 1 TABLET 4 TIMES EACH DAY gabapentin 300 mg capsule 300 mg PO BID Patient Comments: TAKE 1 CAPSULE 2 TIMES EACH DAY Premarin 0.625 mg/gram cream 0.625 mg vaginal DAILY Patient Comments: APPLY A PEA SIZED AMOUNT TO THE VAGINA 1 TIME EACH DAY citalopram 20 mg tablet See Rx Instructions .ROUTE .COMPLEX Qty: 90 3RF Dose Instruction: TAKE 1 TABLET EVERY DAY FOR MOOD Rx Instructions: TAKE 1 TABLET EVERY DAY FOR MOOD lisinopril 5 mg tablet See Rx Instructions .ROUTE .COMPLEX Qty: 90 3RF Dose Instruction: TAKE 1 TABLET EVERY DAY FOR HYPERTENSION Rx Instructions: TAKE 1 TABLET EVERY DAY FOR HYPERTENSION metformin 500 mg tablet See Rx Instructions .ROUTE .COMPLEX Qty: 360 3RF Dose Instruction: TAKE 2 TABLETS TWICE DAILY FOR DIABETES Rx Instructions: TAKE 2 TABLETS TWICE DAILY FOR DIABETES rosuvastatin 20 mg tablet See Rx Instructions .ROUTE .COMPLEX Qty: 90 3RF Dose Instruction: TAKE 1 TABLET EVERY DAY FOR CHOLESTEROL Rx Instructions: TAKE 1 TABLET EVERY DAY FOR CHOLESTEROL cyclobenzaprine 10 mg tablet 10 mg PO TID PRN (Reason: muscle spasm) Qty: 60 1RF promethazine 25 mg tablet 25 mg PO Q6H PRN (Reason: nausea and vomiting) Qty: 20 1RF insulin glargine [Lantus Solostar U-100 Insulin] 100 unit/mL (3 mL) insulin pen 94 unit SQ HS 30 Days Qty: 28.2 4RF Rx Instructions: PT NEEDS APPT topiramate 100 mg tablet 100 mg PO BID Qty: 180 3RF hydroxyzine pamoate 25 mg capsule See Rx Instructions .ROUTE .COMPLEX Qty: 180 10RF Dose Instruction: TAKE 1 CAPSULE THREE TIMES DAILY NEEDED FOR ANXIETY Rx Instructions: TAKE 1 CAPSULE THREE TIMES DAILY NEEDED FOR ANXIETY nystatin 100,000 unit/gram cream 1 applic topical BID Qty: 30 2RF lidocaine 4 % aerosol,spray 1 spray topical Q6H Qty: 113 2RF albuterol sulfate 90 mcg/actuation HFA aerosol inhaler 2 puff inhalation Q6HP PRN (Reason: shortness of breath or wheezing) Qty: 6.7 3RF Myrbetriq 50 mg tablet extended release 24 hr See Rx Instructions .ROUTE .COMPLEX Qty: 90 3RF Dose Instruction: TAKE 1 TABLET EVERY DAY FOR BLADDER Rx Instructions: TAKE 1 TABLET EVERY DAY FOR BLADDER fluticasone propionate 50 mcg/actuation spray,suspension See Rx Instructions .ROUTE .COMPLEX Qty: 48 3RF Dose Instruction: USE 2 SPRAYS NASALLY EVERY DAY NEEDED FOR NASAL CONGESTION Rx Instructions: USE 2 SPRAYS NASALLY EVERY DAY NEEDED FOR NASAL CONGESTION (DME) pen needle, diabetic [Droplet Pen Needle] 32 gauge x 5/32 needle See Rx Instructions .ROUTE .COMPLEX Qty: 300 3RF Dose Instruction: USE DIRECTED Rx Instructions: USE DIRECTED montelukast 10 mg tablet See Rx Instructions .ROUTE .COMPLEX Qty: 90 3RF Dose Instruction: TAKE 1 TABLET EVERY DAY FOR ALLERGIES Rx Instructions: TAKE 1 TABLET EVERY DAY FOR ALLERGIES meclizine 25 mg tablet 25 mg PO DAILY PRN (Reason: Vertigo) Qty: 90 0RF levothyroxine 175 mcg tablet See Rx Instructions .ROUTE .COMPLEX Qty: 90 0RF Dose Instruction: TAKE 2 TABLETS ON TUESDAY, TUESDAY AND TAKE 1 TABLET ALL OTHER DAYS Rx Instructions: TAKE 2 TABLETS ON TUESDAY, TUESDAY AND TAKE 1 TABLET ALL OTHER DAYS ondansetron 4 mg tablet,disintegrating 4 mg PO TIDP PRN (Reason: Nausea And Vomiting) levofloxacin 750 mg tablet 750 mg PO DAILY 7 Days Qty: 7 0RF Referrals Follow up/Referrals: Lm Chris MD [Primary Care Provider, Internal Medicine] - See instructions Activity Restrictions/Add. Instructions Additional Instructions/Restrictions: Take the prednisone daily for 5 days, you will take 40 mg twice daily for 5 days. Continue your Levaquin that you are prescribed for your pneumonia. Use the nebulizers at home. If you need to go up on your oxygen to more than 2 L then I would like you to follow-up with your primary care provider or return to the emergency department. Clinical Impressions Clinical Impression: Pneumonia, Asthma exacerbation in COPD Stand Alone Forms Stand Alone Forms: Work/School Release Print Language Print Language: German Discharge ED Provider: Maylin Ulloa General Adult HPI General Chief complaint: Shortness of Breath/Dyspnea Stated complaint: sent by pcp possible pneumonia Time Seen by Provider: 03/19/25 08:54 History of Present Illness HPI narrative: Patient is a 59-year-old female with a past medical history of COPD who presented to the emergency department with generalized fatigue and weakness. Patient was sent from her primary care provider as patient was seen today in clinic. Patient has been treated outpatient for pneumonia and is on day 5 of [facility]. Patient was sent with home oxygen when she was seen here previously. Patient has not been on oxygen in the past, patient is currently utilizing 2 L nasal cannula. Patient states that she has still had a mild productive cough. Patient denies any fevers. Patient denies any lower extremity swelling. Patient does have breathing treatments that she does at home. Patient has not been on any recent steroids. Patient denies any abdominal pain, vomiting or diarrhea. Patient has been able to tolerate oral intake. Related Data Home Medications ?Medication ?Instructions ?Recorded ?Confirmed albuterol sulfate 2.5 mg/3 mL 2.5 mg inhalation Q6HP P RN 05/19/22 03/14/25 (0.083 %) solution for nebulization Shortness Of Breat h pantoprazole 40 mg tablet,delayed 40 mg PO DAILY Acid reflux 10/06/22 03/14/25 release ondansetron 4 mg disintegrating 4 mg PO TIDP PRN Nause a And 02/07/23 03/14/25 tablet Vomiting conjugated estrogens 0.625 mg/gram 0.625 mg vaginal DA ANGELICA 11/15/24 03/14/25 vaginal cream (Premarin) gabapentin 300 mg capsule 300 mg PO BID 11/15/2403/14 hydrocodone 10 mg-acetaminophen 1 tab PO QID 11/15/24 03/14/25 325 mg tablet linaclotide 72 mcg capsule 72 mcg PO DAILY 03/14/25 (Linzess) Previous Rx's ?Medication ?Instructions ?Recorded topiramate 100 mg tablet 100 mg PO BID MIGRAINE #180 tabs 05/27/23 hydroxyzine pamoate 25 mg capsule See Rx Instructions .Route 07/18/23 .COMPLEX #180 caps nystatin 100,000 unit/gram topical 1 applic topical BI D yeast 01/18/24 cream infection #30 grams lidocaine 4 % topical spray 1 spray topical Q6H shingl es #113 03/20/24 grams albuterol sulfate 90 mcg/actuation 2 puff inhalation Q 6HP PRN 03/28/24 aerosol inhaler shortness of breath or wheez ing #6.7 grams fluticasone propionate 50 See Rx Instructions .Route 1 10/07/23 mcg/actuation nasal .COMPLEX #48 grams spray,suspension mirabegron 50 mg tablet,extended See Rx Instructions . Route 08/06/24 release 24 hr (Myrbetriq) .COMPLEX #90 tabs citalopram 20 mg tablet See Rx Instructions .Route 0 11/15/24 .COMPLEX #90 tabs cyclobenzaprine 10 mg tablet 10 mg PO TID PRN muscle s pasm #60 11/15/24 tabs insulin glargine 100 unit/mL (3 94 unit (0.94 mL) SQ H S 30 days 11/15/24 mL) subcutaneous pen (Lantus #28.2 mL Solostar U-100 Insulin) lisinopril 5 mg tablet See Rx Instructions .Route 0 11/15/24 .COMPLEX #90 tabs metformin 500 mg tablet See Rx Instructions .Route 0 11/15/24 .COMPLEX #360 tabs promethazine 25 mg tablet 25 mg PO Q6H PRN nausea and 11/15/24 vomiting #20 tabs rosuvastatin 20 mg tablet See Rx Instructions .Route 0 11/15/24 .COMPLEX #90 tabs pen needle, diabetic 32 gauge x #300 ea 11/21/24 (Droplet Pen Needle) montelukast 10 mg tablet See Rx Instructions .Route 0 01/29/25 .COMPLEX #90 tabs meclizine 25 mg tablet 25 mg PO DAILY PRN Vertigo # 90 tabs 02/04/25 levothyroxine 175 mcg tablet See Rx Instructions .Rout e 03/13/25 .COMPLEX #90 tabs levofloxacin 750 mg tablet 750 mg PO DAILY 7 days #7 t abs 03/14/25 prednisone 20 mg tablet 40 mg (2 x 20 mg) PO DAILY # 20 tabs 03/19/25 Allergies Allergy/AdvReac Type Severity Reaction Status Date / Time clotrimazole (CLOTRIMAZOLE) Allergy Unknown Verified 03/14/25 13:07 ketorolac (KETOROLAC) Allergy Unknown Verified 03/14/25 13:07 penicillin G (PENICILLIN G) Allergy Unknown Verified 03/14/25 13:07 Penicillins (PENICILLINS) Allergy Unknown Verified 03/14/25 13:07 Sulfa (Sulfonamide Allergy Unknown Verified 03/14/25 13:07 Antibiotics) (SULFA (SULFONAMIDE ANTIBIOTICS)) sulfamethoxazole Allergy Unknown Verified 03/14/25 13:07 (SULFAMETHOXAZOLE) trimethoprim (TRIMETHOPRIM) Allergy Unknown Verified 03/14/25 13:07 [facility] Disclaimer: The information contained in this section may have been updated after the patient was seen, as this information can be updated by other users. Medical History TIA (transient ischemic attack) Epidermal cyst Tongue abnormality H/O cyst of breast Disorder of neuromuscular transmission Encounter for debridement of skin H/O renal calculi Lichen sclerosus Morbid obesity Fibromyalgia Stomach ulcer Diabetes mellitus Psoriasis Depression Asthma Hearing loss DELIA (obstructive sleep apnea) Hypothyroid Allergies Kidney stones Hyperlipidemia Chronic GERD COPD (chronic obstructive pulmonary disease) Chronic pain Arthritis Surgical History H/O bladder repair surgery H/O colonoscopy Hx of esophagogastroduodenoscopy H/O toe surgery H/O total knee replacement History of ankle surgery H/O oral surgery Hx of cholecystectomy H/O neck surgery History of total abdominal hysterectomy and bilateral salpingo-oophorectomy H/O hand surgery H/O section Family History Mother Arthritis Hypertension Coronary artery disease Hyperlipidemia Father Arthritis Hypertension Hyperlipidemia Coronary artery disease Grandmother Diabetes Social History Smoking Status: Current every day smoker tobacco type: cigarettes packs per day: 1 alcohol intake: never current occupational status: disabled Travel in the last 8 weeks?: None household members: spouse current occupational exposures/hazards: No caffeine: Yes Have you lived/traveled outside US in past 30 days?: No Contact w/someone who lives/traveled outside US past 30 days?: No Exposure to someone with infectious disease in past 14 days?: No Do you have a fever (greater than 100.4 F or 38 C)?: No Have you tested positive for COVID-19?: No Exposed to someone with COVID-19 in past 14 days?: No Do you have a sore throat?: No Do you have a cough?: No Do you have any weakness?: Yes Do you have any diarrhea?: No Are you experiencing any unusual bleeding?: No Do you have any muscle aches/pain?: Yes Do you have any abdominal pain?: No Are you experiencing loss of taste or smell?: No Other Medical History Have you received the Flu Vaccine for this season: No Have you received the Pneumonia Vaccine: No ROS Obtained: Yes All systems reviewed & no additional complaints except as documented and Yes Systems reviewed as appropriate & no additional complaints except as documented Physical Exam General General appearance: alert and in no apparent distress Head Head exam: atraumatic, normocephalic and normal inspection Eye Eye exam: Present normal appearance, PERRL and EOMI; Absent scleral icterus ENT ENT exam: Present normal exam and normal external ear exam Neck Neck exam: Present normal inspection and full ROM Chest Chest inspection: Present normal inspection and symmetric chest wall rise Respiratory Respiratory exam: Present normal lung sounds bilaterally and other (On 2 L nasal cannula, expiratory wheezing in all lung mohan, mild Rales); Absent respiratory distress Cardiovascular Cardiovascular exam: Present regular rate, normal rhythm and normal heart sounds Abdominal Exam Abdominal exam: Present soft and distention; Absent tenderness, guarding or rebound Extremities Exam Extremities exam: Present normal inspection and full ROM Back Exam Back exam: Present normal inspection and full ROM Neurological Exam Neurological exam: Present alert and oriented X3 Psychiatric Psychiatric exam: Present normal affect and normal mood Skin Skin exam: Present warm and dry Medical Decision Making Medical Records Screening: Per USPSTF and CDC recommendations, given the prevalence of disease in our region, it is our hospital?s policy to screen for HIV and viral Hepatitis for all patients aged 18 and over and those with ongoing risk factors. Chandra Inquiry Pt receiving controlled substance: No Vital Signs: 03/19/25 09:01 03/19/25 09:01 03/19/25 09:30 Temperature 98.4 F 98.4 F Temperature Source Oral Oral Pulse Rate 70 73 Pulse Rate [Left] 72 Respiratory Rate 16 16 Blood Pressure 162/51 H Blood Pressure [Right Arm] 162/51 H Blood Pressure Mean 133 Blood Pressure Mean [Right Arm] 88 Blood Pressure Source Blood Pressure Source [Right Arm] Automatic Cuff Blood Pressure Position 02 Sat by Pulse Oximetry 96 96 89 L Oxygen Delivery Method Nasal Cannula Oxygen Flow Rate (LPM) 2 03/19/25 10:00 03/19/25 10:30 03/19/25 11:00 Temperature Temperature Source Pulse Rate 70 71 78 Pulse Rate [Left] Respiratory Rate Blood Pressure Blood Pressure [Right Arm] Blood Pressure Mean Blood Pressure Mean [Right Arm] Blood Pressure Source Blood Pressure Source [Right Arm] Blood Pressure Position 02 Sat by Pulse Oximetry 87 L 98 92 L Oxygen Delivery Method Oxygen Flow Rate (LPM) 03/19/25 11:30 03/19/25 11:38 03/19/25 11:46 Temperature Temperature Source Pulse Rate 74 Pulse Rate [Left] Respiratory Rate Blood Pressure 122/54 L 122/54 L 130/50 L Blood Pressure [Right Arm] Blood Pressure Mean 72 76 Blood Pressure Mean [Right Arm] Blood Pressure Source Blood Pressure Source [Right Arm] Blood Pressure Position 02 Sat by Pulse Oximetry 90 L 92 L 92 L Oxygen Delivery Method Oxygen Flow Rate (LPM) 03/19/25 12:01 03/19/25 12:16 03/19/25 12:31 Temperature Temperature Source Pulse Rate 80 80 Pulse Rate [Left] Respiratory Rate Blood Pressure 138/44 L 123/49 L 124/45 L Blood Pressure [Right Arm] Blood Pressure Mean 77 86 71 Blood Pressure Mean [Right Arm] Blood Pressure Source Blood Pressure Source [Right Arm] Blood Pressure Position 02 Sat by Pulse Oximetry 91 L 91 L 90 L Oxygen Delivery Method Oxygen Flow Rate (LPM) 03/19/25 12:46 03/19/25 13:01 03/19/25 13:45 Temperature Temperature Source Pulse Rate 80 73 78 Pulse Rate [Left] Respiratory Rate Blood Pressure 140/60 127/56 L 124/54 L Blood Pressure [Right Arm] Blood Pressure Mean 81 79 90 Blood Pressure Mean [Right Arm] Blood Pressure Source Blood Pressure Source [Right Arm] Blood Pressure Position 02 Sat by Pulse Oximetry 90 L 94 L 90 L Oxygen Delivery Method Oxygen Flow Rate (LPM) 03/19/25 14:00 03/19/25 14:16 03/19/25 14:46 Temperature Temperature Source Pulse Rate 76 76 86 Pulse Rate [Left] Respiratory Rate Blood Pressure 138/60 112/43 L 136/68 Blood Pressure [Right Arm] Blood Pressure Mean 86 67 84 Blood Pressure Mean [Right Arm] Blood Pressure Source Blood Pressure Source [Right Arm] Blood Pressure Position 02 Sat by Pulse Oximetry 90 L 90 L 94 L Oxygen Delivery Method Oxygen Flow Rate (LPM) 03/19/25 15:05 03/19/25 15:40 Temperature 97.8 F Temperature Source Oral Pulse Rate 82 80 Pulse Rate [Left] Respiratory Rate 20 16 Blood Pressure 155/71 H 135/69 Blood Pressure [Right Arm] Blood Pressure Mean Blood Pressure Mean [Right Arm] Blood Pressure Source Automatic Cuff Automatic Cuff Blood Pressure Source [Right Arm] Blood Pressure Position Supine Sitting 02 Sat by Pulse Oximetry 91 L Oxygen Delivery Method Nasal Cannula Room Air Oxygen Flow Rate (LPM) Lab Data Lab results reviewed: Yes I reviewed the patient's lab results. Lab Results 03/19/25 09:08: WBC 10.1, RBC 5.89 H, Hgb 15.0, Hct 49.7 H, MCV 84.4, MCH 25.5 L , MCHC 30.2 L, RDW 17.4, Plt Count 288, MPV 8.7, Neut % (Auto) 69.0, Lymph % (Auto) 19.8, [place] % (Auto) 7.2, Eos % (Auto) 2.7, Baso % (Auto) 0.9, Neut # (Auto) 7.0, Lymph # (Auto) 2.0, [place] # (Auto) 0.7, Eos # (Auto) 0.3, Baso # (Auto) 0.1, PT 12.8 H, INR 1.17 H, D-Dimer 0.78 H, Sodium 140, Potassium 4.0, C hloride 96 L, Carbon Dioxide 34 H, Anion Gap 14.0, BUN 8, Creatinine 0.70, Estimated Creat Clear 80, Estimated GFR 85, Est GFR ( Amer) 103, Glucose 76, Calcium 9.5, Total Bilirubin 0.7, AST 53 H, ALT 55, Alkaline Phosphatase 150 H, Troponin I 0.02, Total Protein 8.0, Albumin 4.2, Globulin 3.8 H, Albumin/Globulin Ratio 1.1 03/19/25 09:15: VBG pH 7.31, VBG pCO2 65.6 H, VBG pO2 43.5 H, VBG HCO3 32.1 H, V BG Total CO2 34.1 H, VBG O2 Saturation 79.0 H, VBG Base Excess 5.8 H, VBG Lactic Acid 1.9 03/19/25 09:18: Chlamy pneumoniae PCR Not detected, Adenovirus (PCR) Not detected, B. pertussis DNA (PCR) Not detected, Coronavirus OC43 (PCR) Not detected, Coronavirus HKU1 (PCR) Not detected, Coronavirus 229E (PCR) Not detected, SARS-CoV-2 (PCR) Not detected, Coronavirus NL63 (PCR) Not detected, Human Metapneumovir PCR Not detected, Influenza A (H1) PCR Not detected, Influ A (H1N1/09) PCR Not detected, Influenza A (H3) PCR Not detected, Influenza Type A (PCR) Not detected, Influenza Type B (PCR) Not detected, M. pneumoniae (PCR) Not detected, Parainfluenza 1 (PCR) Not detected, Parainfluenza 2 (PCR) Not detected, Parainfluenza 3 (PCR) Not detected, Parainfluenza 4 (PCR) Not detected, RSV (PCR) Not detected, Entero/Rhino (PCR) Not detected 03/19/25 10:42: Urine Color Yellow, Urine Appearance Clear, Urine pH 8.0, Ur Specific [place] 1.010, Urine Protein Negative, Urine Glucose (UA) Negative, Urine Ketones Negative, Urine Blood Negative, Urine Nitrate Negative, Urine Bilirubin Negative, Urine Urobilinogen 2.0, Ur Leukocyte Esterase Trace, Urine RBC Occasional, Urine WBC 5-10, Ur Squamous Epith Cells Occasional, Ur Renal Epithelial Cell Occasional, Urine Bacteria Trace 03/19/25 12:10: Troponin I 0.02 03/19/25 09:08 03/19/25 09:08 Orders (Tests/Meds): ED MEDICATIONS Discontinued Medications Generic Name Dose Route Start Last Admin Trade Name Freq PRN Reason Stop Dose Admin Albuterol/Ipratropium 3 ml 03/19/25 10:06 03/19/25 10:12 Ipratropium/Albuterol 3 Ml [facility] 03/19/25 10:07 3 ml ONCE ONE Administration Albuterol/Ipratropium 6 ml 03/19/25 11:36 03/19/25 11:43 Ipratropium/Albuterol 3 Ml Formerly [facility] 03/19/25 11:37 6 ml ONCE ONE Administration Magnesium Sulfate 2 gm in 50 mls @ 50 mls/hr 03/19/25 11:36 03/19/25 11:43 Magnesium Sulfate 2gm/50ml Premix IV 03/19/25 12:35 50 mls/hr ONCE ONE Administration Iopamidol 70 ml 03/19/25 10:46 03/19/25 10:47 Iopamidol-370 (76%);100ml Bottle IV 03/19/25 10:47 70 ml ONCE ONE Administration Methylprednisolone Sodium Succinate 125 mg 03/19/25 11:36 03/19/25 11:43 Methylprednisolone Sod Succ 125mg Vial IV 03/19/25 11:37 125 mg ONCE ONE Administration Sodium Chloride 50 ml 03/19/25 10:46 03/19/25 10:47 0.9 % Sodium Chloride 50 Ml Vial IV 03/19/25 10:47 50 ml ONCE ONE Administration Sodium Chloride 10 ml 03/19/25 10:46 03/19/25 10:47 Sodium Chloride 0.9% 10ml Syr (Rad Only) IV 03/19/25 10:47 10 ml ONCE ONE Administration ORDERS Category Date Time Status CT angio chest PE protocol Stat Cat Scan 03/19/25 10:05 Completed XR chest portable Stat Exams 03/19/25 09:14 Completed Complete Blood Count Auto Diff Stat Lab 03/19/25 09:08 Completed Comprehensive Metabolic Panel Stat Lab 03/19/25 09:08 Completed D-Dimer Stat Lab 03/19/25 09:08 Completed Full Resp Panel w/COVID ([facility]) Routine Lab 03/19/25 09:18 Completed Prothrombin Time INR Stat Lab 03/19/25 09:08 Completed Trop I [Troponin I] Stat Lab 03/19/25 09:08 Completed Troponin I Q3H Lab 03/19/25 12:10 Completed Urinalysis and Microscopic Stat Lab 03/19/25 10:42 Completed Blood Culture Stat Micro 03/19/25 09:30 Received Urine Culture Stat Micro 03/19/25 10:34 Received VBG [Venous Blood Gas] Stat RT 03/19/25 09:15 Completed Medical Decision Narrative: Patient is a 59-year-old female with a past medical history of COPD, recent diagnosis of pneumonia on Levaquin who presented to the emergency department from her clinic appointment with concern for possible worsening pneumonia. Patient states that she was diagnosed with pneumonia 5 days ago has been on oral Levaquin since this time. Patient states that she has continued to feel fatigued, tired has had continued shortness of breath. Patient was sent with outpatient oxygen and has been wearing 2 L at home. On arrival, patient was 96% on 2 L nasal cannula, patient was otherwise hemodynamically stable. Differential includes but not limited to: Viral syndrome, COPD exacerbation, pneumonia, pulmonary embolism, ACS/AL, pneumothorax, pleural effusion, amongst others. Patient's labs were reviewed and interpreted by myself, CBC showed no leukocytosis, hemoglobin stable. CMP was unremarkable. VBG was reviewed and interpreted by myself and showed mild acidosis of 7.31, hypercapnia of 65 otherwise unremarkable. UA showed no evidence of infection. Respiratory panel was negative. Chest x-ray was reviewed and interpreted by myself and showed no acute focal consolidation, pneumothorax, pleural effusion or other acute cardiopulmonary process. CTA of the chest was obtained that showed no acute pulmonary embolism. Given no evidence of pneumonia on imaging, patient was given DuoNebs, magnesium and steroids in the emergency department, patient had improvement of her shortness of breath and her symptoms. Patient was able to be weaned down off of her oxygen and on room air, patient was 90%. At this time, I offered admission for the patient versus discharging home. Given that patient already has home oxygen, patient felt that she could do everything at home that they would do if admitted. I felt that it would be reasonable and appropriate to discharge patient home with steroids for component of COPD exacerbation. Patient already has nebulizers at home. Was sent with steroids and recommended to continue her antibiotics that were prescribed, patient has 2 days left of Levaquin. Patient was instructed that if she needed to increase her oxygen at home that she needs to return to the emergency department or if her symptoms were to worsen. Patient was instructed to follow-up with her primary care provider in the next few days and patient was otherwise discharged home in stable condition. Critical Care Critical Care Time Critical Care Time: No
--- OUTSIDE RECORDS SUMMARY | 2025-03-19 09:02 | XMS_ITS | Encounter Summary ---
Author Organization [employer] ([place], [place], [place], [place]) Address [address] [place] [address] Care Team Providers Care Fleet Administrative Assistant Name Role Phone Unavailable Primary Care Provider Unavailabl e Encounter Details Date Type Department Care Team (Late st Contact Info) Description 10/30/[address] [facility] Medicine [address] [place] [address] ProviderKevin MD [address] [place] [address] [phone] Social History Tobacco Use Types Packs/Day Years Used Date Smoking Tobacco: Never Assessed Comments Unknown Sex and Gender Information Value Date Recorded Sex Assigned at Not on file Legal Sex Female 6:40 PM CDT Gender Identity Not on file Sexual Orientation Not on file documented as of this encounter Miscellaneous Notes * Cerner Conversion Note - Kevin ProviderMD - 10/30/2019 5:38 PM [employer] ED Triage Entered On: 10/30/2019 18:19 EST [...] : 3 - Urgent Tracking Group : [facility] ED Nancy Lanier RN - [...] PNED ; Probability: 0 ; Diagnosis Code: [id number] ED Height and Weight Height Source : Stated Height Entry Format : [place] Height, Feet : 5 ft(Converted to: 152 cm, 60 Inch) Height, Inches : 6 Inch(Converted to: 0 ft 6 Inch, 15.24 cm) Clinical Height : 167.64 cm Weight Source, ED : Critical estimated dosing weight Weight Entry Format : [place] Weight, Pounds : 250 lb Clinical Dosing Weight : 113.64 kg Body Surface Area (BSA) : 2.2 m2 Body Mass Index : 40.4 kg/m2 (>HHI) [place] Body Weight (IBW) : 58.88 kg Nancy [...]
--- OUTSIDE RECORDS SUMMARY | 2025-03-19 09:02 | XMS_ITS | Clinical Summary ---
Author Organization Healthcare Address [address] [place] [address] Care Team Providers Care Mortgage Closing Clerk Name Role Phone Amanda Morris Primary Care Provider [phone] Allergies Active Allergy Reactions Criticality Noted Date [...] 25 MG capsule 0 Active HYDROcodone-acetam inophen ([place]) 7.5-325 MG tablet 4 Active hydrOXYzine pamoate (Vistaril) 25 MG capsule 0 Active ibuprofen 800 MG tablet 3 Active Lantus SoloStar 100 UNIT/ML injection pen 3 Active Droplet Pen [place] 32G X 4 MM misc 3 Active [...] (2 of 2 - PPSV23) 08/24/2016 06/29/2016 CTN-VEXXR-70 Vaccine (2 - Earnest risk series) 05/14/2021 [...] 5.9(H) <5.7 % 08/06/2024 8:23 AM EST [facility] Blood Venous blood specimen / Unknown Venipuncture / Unknown 08/06/2024 7:32 AM EST 08/06/2024 7:32 AM EST Narrative [facility] - 08/06/2024 8:23 AM EST HA1C Interpretive Data: Diagnosis of Diabetes: Diabetic > or = 6.5% Pre-diabetic 5.7 to 6.4% Non-diabetic < or = 5.6% Glycemic Targets for Type I and Type II Diabetics: Non- Adults <7.0% Adults <6.0% Children and Adolescents <7.5% Source: [place] [employer]. Standards of medical care in diabetes,2017. Diabetes Care.2017:40 (suppl 1):S1-S135. HbA1c assay performed by an ion-exchange chromatography method that is certified traceable to the DCCT. Kath Arteaga APRN, DNP LAB BLOOD ORDERABLES Fin al Result [facility] [address] [place] [address] from Last 3 Months or Most Recently Relevant to Health Maintenance Insurance MEDICARE Care Teams Mortgage Closing Clerk Relationship Specialty Start Date End Date Amanda Morris PA [address] [place] [phone] PCP - General 01/16/21
--- OUTSIDE RECORDS SUMMARY | 2025-03-19 09:02 | XMS_ITS | Encounter Summary ---
Author Organization Healthcare Address [address] [place] [address] Care Team Providers Care Price Lister Name Role Phone Amanda Morris Primary Care Provider [phone] Encounter Details Date Type Department Care Team (Late st Contact Info) Description 01/26/2024 Orders Only External Location [address] [place] [address] Kath Arteaga APRN, TINO [address] [facility] [address] [place] [address] Social History Tobacco Use Types [...] documented as of this encounter Care Teams Price Lister Relationship Specialty Start Date End Date Amanda Morris PA [address] [place] [address] PCP - General 01/16/21 documented as of this encounter
--- OUTSIDE RECORDS SUMMARY | 2025-03-19 09:02 | XMS_ITS | Encounter Summary ---
Author Organization [employer] ([place], [place], [place], [place]) Address [address] [place] [address] Care Team Providers Care Ocular Care Technician Name Role Phone Unavailable Primary Care Provider Unavailabl e Encounter Details Date Type Department Care Team (Late st Contact Info) Description 10/30/2019 Transcribed Document [facility] Family Medicine [address] [place] [address] ProviderKevin MD [address], [place] [id number] Social History Tobacco Use Types Packs/Day Years Used Date Smoking Tobacco: Never Assessed Comments Unknown Sex and Gender Information Value Date Recorded Sex Assigned at Not on file Legal Sex Female 6:40 PM CDT Gender Identity Not on file Sexual Orientation Not on file documented as of this encounter Miscellaneous Notes * Cerner Conversion Note - Kevin ProviderMD - 10/30/2019 5:38 PM INFORMATION SYSTEMS SECURITY OFFICER [place] Suicide Severity Rating Scale (C-SSRS) Entered On: 10/30/2019 21:46 EST Performed On: 10/30/2019 21:43 EST by Monika Edwards RN [place] Suicide Severity Rating Scale (C-SSRS) CSSRS Past Month Wish to be : No CSSRS Past Month Suicidal Thoughts : No CSSRS Lifetime Suicide Behavior : No Suicide Severity Rating Score : 0 Suicide Severity Rating : No Additional Care Required at this time Monika Edwards RN - 10/30/2019 21:43 EST Electronically signed by Alex [facility] Conversion Group Worker Cerner at 12/24/2022 10:14 AM CDT documented in this encounter Plan of Treatment Not on file documented as of this encounter Visit Diagnoses Not on filedocumented in this encounter
--- OUTSIDE RECORDS SUMMARY | 2025-03-19 09:02 | XMS_ITS | Clinical Summary ---
Author Organization [employer] ([place], [place], [place], [place]) Address [address] [place] [address] Care Team Providers Care Fly Frame Tender Name Role Phone Unavailable Primary Care Provider [...]
--- OUTSIDE RECORDS SUMMARY | 2025-03-19 09:02 | XMS_ITS | Encounter Summary ---
Author Organization Healthcare Address [address] [place] [address] Care Team Providers Care Vest Finisher Name Role Phone Amanda Morris Primary Care Provider [phone] Encounter Details Date Type Department Care Team (Late st Contact Info) Description 02/15/2023 Orders Only External Location [address] [place] [address] Shayy Villegas, SE[employer] KISS MAKER [address] [facility] [address] [place], [place] [id number] Social History Tobacco Use Types Packs/Day Years [...] on filedocumented in this encounter Care Teams Vest Finisher Relationship Specialty Start Date End Date Amanda Morris PA [address] [place] [address] PCP - General 01/16/21 documented as of this encounter
--- OUTSIDE RECORDS SUMMARY | 2025-03-19 09:02 | XMS_ITS | Encounter Summary ---
Author Organization [employer] ([place], [place], [place], [place]) Address [address] [facility] [place] [address] Care Team Providers Care Fine Jewelry Sales Associate Name Role Phone Unavailable Primary Care Provider Unavailabl e Encounter Details Date Type Department Care Team (Late st Contact Info) Description 10/31/2019 Transcribed Document [facility] [place] Family Medicine [address] [place] [address] ProviderKevin MD [address] [place] [id number] Social History Tobacco Use Types Packs/Day Years Used Date Smoking Tobacco: Never Assessed Comments Unknown Sex and Gender Information Value Date Recorded Sex Assigned at Not on file Legal Sex Female 6:40 PM CDT Gender Identity Not on file Sexual Orientation Not on file documented as of this encounter Miscellaneous Notes * Cerner Conversion Note - Kevin ProviderMD - 10/31/2019 12:47 AM STAFF NUCLEAR WEAPONS OFFICER ED Discharge Entered On: 10/31/2019 0:47 EST [...] Monika Edwards RN - 10/31/2019 0:47 EST documented in this encounter Plan of Treatment Not on file documented as of this encounter Visit Diagnoses Not on filedocumented in this encounter
--- OUTSIDE RECORDS SUMMARY | 2025-03-19 09:02 | XMS_ITS | Referral Summary ---
Author Organization [employer] ([place], [place], [place], [place]) Address [address] [place] [address] Care Team Providers Care Dietary Worker Name Role Phone Unavailable Primary Care Provider [...]
--- OUTSIDE RECORDS SUMMARY | 2025-03-19 09:03 | XMS_ITS | Data Portability ---
Author Organization [place] [facility] [place] [facility] [place] [facility] Address [address] [place] [address] Care Team Providers Care Service Dismantler Name Role Phone LILY HORVATH Primary Care Provider KIESHA MAGALLON Flat Bed Operator Assessment Encounter Date Assessment Date Assessment LastModified by Organization Details LastModified Time 04/28/2023 04/28/2023 I recommend referral to [facility] urogynecology service. The patient may benefit from a urodynamic study in lieu of her previous sling procedure and progressively worsening incontinence. Some potential options could include possible injection of urethral bulking agent, possible sling procedure and possible but less likely neuromodulation. The choice of treatment option, in my opinion, would be weighed based on findings of a UDS and possible cystoscopy/pelvi c exam. Explained this to the patient and the daughter and they are both in agreement to proceed as outlined. I do not feel performing cystoscopy today would be of any great benefit to the process currently and will defer this to Urogynecology at which time they feel it would be appropriate in the potential diagnostic lead up to a procedural intervention. Not available 04/28/2023 14:10:40 Plan of Treatment Reminders Order Date Submit Date Provider Last Modified By Organization Details Last Modified Time Details Appointments OV EST 15 2024 01:15P Kerri Potter NP Not available Not available Not available Lab gastroint estinal pathogens panel, PCR, stool 2023 024 [email or web address] [facility] (Lab Registration) , [address] [place] [address] [place], [address], 02/22/2024 07:40:23 O&P (ova & parasites ), stool 2023 024 [email or web address] Evaristo [facility] (Lab Registration) , [address] [place] [address] [place], [address], 02/22/2024 07:40:23 culture, stool 2023 024 ELAINE [facility] (Lab Registration) , [address] [place] [address] [place], [address], 02/19/2024 06:04:03 urinalysi s, dipstick 2022 023 [email or web address] [facility], [address], [address], [place], [address], 01/25/2023 10:09:19 Referral None recorded. Procedures colonosco py procedure (PROC) 2023 024 ozzy Magallon, [address] [place] [address] [address], [place], [address], 02/15/2024 15:20:31 upper endoscopy procedure (EGD) (PROC) 2023 024 [email or web address] Magallon MD, [address], [place], [address], 12/28/2023 09:18:53 Surgeries None recorded. Imaging [place], modified barium swallow study 2023 024 [facility] Centralized Scheduling, [address] [place], [address], 12/21/2023 09:24:13 barium swallow study 2023 024 [facility] Centralized Scheduling, [address] [place], [address], 12/29/2023 10:47:30 US, renal 2022 023 Not available 02/07/2023 09:55:35 XR, kidney + ureter + bladder 2022 023 Not available 01/25/2023 11:37:07 Medication Orders pantopraz ole 40 mg tablet,de layed release 2023 024 ELAINE [facility] (Now [facility]), [address], [place], [address], 02/15/2024 11:40:37 Miralax 17 gram/dose oral powder 2023 024 [facility] (Now [facility]), [address], [place], [address], 02/15/2024 15:20:31 Dulcolax (bisacody l) 5 mg tablet,de layed release 2023 024 [email or web address] [facility] (Now [facility]), [address], [place], [address], 02/15/2024 15:20:31 Linzess 72 mcg capsule 2023 024 [email or web address] [facility] (Now [facility]), [address], [place], [address], 12/01/2023 09:21:03 Patient TargetsNo targets recorded. Patient InstructionsNo instructions recorded. Reason for Referral None Reported. Results Created Date Observation Date Name Description Value Unit Range Abnormal Flag Note LastModifiedBy Organization Detail LastModifiedTime 01/26/2001/25/2023 urina lysis , dipst ick Leukocytes (reference range) negati ve Not Available [facility] [address] [place] [address], [address], 01/25/2023 09:20:27 01/26/20 23 01/25/2023 urina lysis , dipst ick Nitrite (reference range:) negati ve Not Available [facility] [address] [place] [address] [address], [place], [address], 01/25/2023 09:20:27 01/26/2001/25/2023 urina lysis , dipst ick Urobilinogen (reference range) 0.2 Not Available [facility] [address] [place] [address] [address], [place], [address], 01/25/2023 09:20:27 01/26/20 23 01/25/2023 urina lysis , dipst ick Protein (reference range) negati ve Not Available [address], [place], [address], 01/25/2023 09:20:27 01/26/20 23 01/25/2023 urina lysis , dipst ick pH (reference range 5-8.5) 6.0 Not Available [facility] [address] [place] [address] [address], [place], [address], 01/25/2023 09:20:27 01/26/2001/25/2023 urina lysis , dipst ick Blood (reference range:) negati ve Not Available [address], [place], [address], 01/25/2023 09:20:27 01/26/2001/25/2023 urina lysis , dipst ick Specific [place] (reference range) 1.015 Not Available [facility] [address] [place] [address] [address], [place], [address], 01/25/2023 09:20:27 01/26/2001/25/2023 urina lysis , dipst ick Ketone (reference range) negati ve Not Available [facility] [address] [place] [address] [address], [place], [address], 01/25/2023 09:20:27 01/26/20 23 01/25/2023 urina lysis , dipst ick Bilirubin (reference range) negati ve Not Available [facility] [address], [place], [address], 01/25/2023 09:20:27 01/26/20 23 01/25/2023 urina lysis , dipst ick Glucose (reference range) negati ve Not Available [facility] [address] [place] [address] [address], [place], [address], 01/25/2023 09:20:27 01/26/20 23 01/25/2023 urina lysis , dipst ick Color (reference range: yellow-brown ) Yellow Not Available [facility] [address] [place] [address] [address], [place], [address], 01/25/2023 09:20:27 02/18/20 24 02/18/2024 GASTR OINTE NKECHI L PANEL BY PCR specimen consistency NON-FO RMED STL Not Available [facility] (Lab Registration) [address], [place], [address], 02/18/2024 14:46:28 02/18/20 24 02/18/2024 GASTR OINTE NKECHI L PANEL BY PCR campylobacte r NOT DETECT ED not detect ed Not Available [facility] (Lab Registration) [address], [place], [address], 02/18/2024 14:46:28 02/18/20 24 02/18/2024 GASTR OINTE NKECHI L PANEL BY PCR clostridium diff. toxin A/B NOT DETECT ED not detect ed Not Available [facility] (Lab Registration) [address], [place], [address], 02/18/2024 14:46:28 02/18/20 24 02/18/2024 GASTR OINTE NKECHI L PANEL BY PCR plesiomonas shigelloides NOT DETECT ED not detect ed Not Available [facility] (Lab Registration) [address], [place], [address], 02/18/2024 14:46:28 02/18/20 24 02/18/2024 GASTR OINTE NKECHI L PANEL BY PCR salmonella NOT DETECT ED not detect ed Not Available [facility] (Lab Registration) [address], [place], [address], 02/18/2024 14:46:28 02/18/20 24 02/18/2024 GASTR OINTE NKECHI L PANEL BY PCR vibrio NOT DETECT ED not detect ed Not Available [facility] (Lab Registration) [address], [place], [address], 02/18/2024 14:46:28 02/18/20 24 02/18/2024 GASTR OINTE NKECHI L PANEL BY PCR vibrio cholerae NOT DETECT ED not detect ed Not Available [facility] (Lab Registration) [address], [place], [address], 02/18/2024 14:46:28 02/18/20 24 02/18/2024 GASTR OINTE NKECHI L PANEL BY PCR yersinia enterocoliti ca NOT DETECT ED not detect ed Not Available [facility] (Lab Registration) [address], [place], [address], 02/18/2024 14:46:28 02/18/20 24 02/18/2024 GASTR OINTE NKECHI L PANEL BY PCR enteroaggreg ative E. coli NOT DETECT ED not detect ed Not Available [facility] (Lab Registration) [address] [place], [address], 02/18/2024 14:46:28 02/18/20 24 02/18/2024 GASTR OINTE NKECHI L PANEL BY PCR enteropathog enic E. coli NOT DETECT ED not detect ed Not Available [facility] (Lab Registration) [address] [place], [address], 02/18/2024 14:46:28 02/18/20 24 02/18/2024 GASTR OINTE NKECHI L PANEL BY PCR enterotoxige sorin E. coli NOT DETECT ED not detect ed Not Available [facility] (Lab Registration) [address], [place], [address], 02/18/2024 14:46:28 02/18/20 24 02/18/2024 GASTR OINTE NKECHI L PANEL BY PCR shiga-like toxin-produc E coli NOT DETECT ED not detect ed Not Available [facility] (Lab Registration) [address], [place], [address], 02/18/2024 14:46:28 02/18/20 24 02/18/2024 GASTR OINTE NKECHI L PANEL BY PCR E. coli 0157 NOT APPLIC ABLE not detect ed Not Available [facility] (Lab Registration) [address], [place], [address], 02/18/2024 14:46:28 02/18/20 24 02/18/2024 GASTR OINTE NKECHI L PANEL BY PCR shigella/ent eroinvasive E coli NOT DETECT ED not detect ed Not Available [facility] (Lab Registration) [address], [place], [address], 02/18/2024 14:46:28 02/18/20 24 02/18/2024 GASTR OINTE NKECHI L PANEL BY PCR cryptosporid ium NOT DETECT ED not detect ed Not Available [facility] (Lab Registration) [address], [place], [address], 02/18/2024 14:46:28 02/18/20 24 02/18/2024 GASTR OINTE NKECHI L PANEL BY PCR cyclospora cayetanensis NOT DETECT ED not detect ed Not Available [facility] (Lab Registration) [address], [place], [address], 02/18/2024 14:46:28 02/18/20 24 02/18/2024 GASTR OINTE NKECHI L PANEL BY PCR entamoeba histolytica NOT DETECT ED not detect ed Not Available [facility] (Lab Registration) [address], [place], [address], 02/18/2024 14:46:28 02/18/20 24 02/18/2024 GASTR OINTE NKECHI L PANEL BY PCR giardia lamblia NOT DETECT ED not detect ed Not Available [facility] (Lab Registration) [address], [place], [address], 02/18/2024 14:46:28 02/18/20 24 02/18/2024 GASTR OINTE NKECHI L PANEL BY PCR adenovirus F 40/41 NOT DETECT ED not detect ed Not Available [facility] (Lab Registration) [address], [place], [address], 02/18/2024 14:46:28 02/18/20 24 02/18/2024 GASTR OINTE NKECHI L PANEL BY PCR astrovirus NOT DETECT ED not detect ed Not Available [facility] (Lab Registration) [address], [place], [address], 02/18/2024 14:46:28 02/18/20 24 02/18/2024 GASTR OINTE NKECHI L PANEL BY PCR norovirus GI/gii NOT DETECT ED not detect ed If a posit ary Norov irus resul t is incon siste nt with clini sadie prese ntati on, the posit ary Norov irus resul t shoul d be confi rmed using anoth er metho d. It has been deter mined the overa ll risk of false posit ary Norov irus repor kathie by the BIOFI RE GI Panel may be amrit us for patie nts at great est risk. False posit ary resul ts are typic ally assoc iated with unnec essar y treat ment and reduc ed likel ihood of ident ifyin g the true cause of the patie nt's disea se. Not Available [facility] (Lab Registration) [address], [place], [address], 02/18/2024 14:46:28 02/18/20 24 02/18/2024 GASTR OINTE NKECHI L PANEL BY PCR rotavirus A NOT DETECT ED not detect ed Not Available [facility] (Lab Registration) [address], [place], [address], 02/18/2024 14:46:28 02/18/20 24 02/18/2024 GASTR OINTE NKECHI L PANEL BY PCR sapovirus NOT DETECT ED not detect ed Not Available [facility] (Lab Registration) [address] [place], [address], 02/18/2024 14:46:28 02/18/20 24 02/18/2024 GASTR OINTE NKECHI L PANEL BY PCR note Unles s other [facility] noted testi ng perfo rmed at: [facility] [address] [place] [address] [phone] Robby mcleod MD CLIA: [id number] Not Available [facility] (Lab Registration) [address], [place], [address], 02/18/2024 14:46:28 02/18/20 24 02/18/2024 CULTU RE STOOL results [facility] 02-18 601 No Salmo ravi , Shige lla,E caroline ichia coli O157: H7, or Yersi eran [place] kathie at Day 1 [facility] 02-19 548 No Salmo ravi , Shige lla,E caroline ichia coli O157: H7, Yersi eran, or Campy lobac ter [place] kathie at Day 2 [facility] 02-20 716 No Salmo ravi , Shige lla, Esche zach a coli O157: H7 Yersi eran, or Campy lobac ter [place] kathie at Day 3 Not Available [facility] (Lab Registration) [address] [place], [address], 02/21/2024 07:18:50 02/18/20 24 02/18/2024 CULTU RE STOOL note [facility]les [facility] other [facility] noted testi ng perfo rmed at: [facility] [address] [place] [address] [phone] Robby mcleod MD CLIA: [id number] Not Available [facility] (Lab Registration) [address], [place], [address], 02/21/2024 07:18:50 02/18/20 24 02/18/2024 O+P SMEAR CONC ID note Unles s other church noted testi ng perfo rmed at: [facility] [address] [place] [address] [phone] Robby mcleod MD CLIA: [id number] Not Available [facility] (Lab Registration) [address], [place], [address], 02/22/2024 19:09:19 02/18/20 24 02/22/2024 O+P SMEAR CONC ID ova + parasite exam FINAL REPORT These resul ts were obtai randolph using wet prepa ratio n(s) and trich aleksander stain ed smear . This test does not inclu de testi ng for Crypt ospor idium parvu m, Cyclo spora , or Micro spori roopa. SENT TO REFER ENCE LAB Not Available [facility] (Lab Registration) [address], [place], [address], 02/22/2024 19:09:19 02/18/20 24 02/22/2024 O+P SMEAR CONC ID result 1 COMMEN T No ova, cysts , or aleena ites seen. . One negat ary speci men does not rule out the possi bilit y of a aleena itic infec tion. Perfo rmed at: [facility] [place] [id number] [facility] Lab Direc tor: Hernando dominguez PhD, Phone : [phone] SENT TO REFER ENCE LAB Not Available [facility] (Lab Registration) [address] [place], [address], 02/22/2024 19:09:19 Result Notes None recorded. Problems Name Problem SNOMED Code Status Onset Date Resolution Date Notes Provider Name and Address Organization Details Recorded Time Epigastri c pain 75322278 Active 2019 Not Available [facility] 2 11:43:18 Protein level - finding 622086060 Active 2018 Not Available [facility] 2 11:43:18 Chronic pain 90685904 Active 2018 Not Available [facility] 2 11:43:19 Tobacco user 049448480 Active 2017 Not Available [facility] 2 11:43:19 Nausea 270713644 Active 2018 Not Available [facility] 2 11:43:19 Cervical spondylos is 845589819 Active 2018 Not Available [facility] 2 11:43:19 Diabetes mellitus 76915366 Active 2015 Diabetes mellitus Not Available [facility] 2 11:43:19 Mixed urinary incontine nce 216000479 Active 2017 Not Available [facility] 2 11:43:19 Moderate major depressio n, single episode 57551692 Active 2020 Not Available [facility] 2 11:43:19 Lower esophagea l ring 135056928 Active 2019 Not Available [facility] 2 11:43:19 Gastric ulcer with hemorrhag e 21587050 Active 2018 Not Available [facility] 2 11:43:19 Disturban ce in sleep behavior 02262152 Active 2018 Not Available [facility] 2 11:43:19 Dysphagia 02518826 Active 2020 Not Available [facility] 2 11:43:19 Denture unstable 700096597 Active 2017 Not Available [facility] 2 11:43:19 Obstructi ve sleep apnea syndrome 97910629 Active 2017 Not Available [facility] 2 11:43:19 Refractor y migraine with aura 818612158 Active 2021 Not Available [facility] 2 11:43:20 Erosive esophagit is 36404347 Active 2019 Not Available [facility] 2 11:43:20 Nocturia 810096683 Active 2019 Not Available [facility] 2 11:43:20 Spinal stenosis in cervical region 10161039 Active 2018 Not Available [facility] 2 11:43:20 Gastric ulcer without hemorrhag e AND without perforati on 06202237 Active 2017 Not Available [facility] 2 11:43:20 Dribbling of urine 28589352 Active 2017 Not Available [facility] 2 11:43:20 Memory impairmen t 845236529 Active 2017 Not Available [facility] 2 11:43:20 Thrombocy tosis 6677575 Active 2018 Not Available [facility] 2 11:43:20 Nicotine dependenc e 61676117 Active 2018 Not Available [facility] 2 11:43:20 Candidias is of the esophagus 48112158 Active 2019 Not Available [facility] 2 11:43:20 Lumbar spondylos is 062876015 Active 2018 Not Available [facility] 2 11:43:21 Vitamin D deficienc y 03998045 Active 2017 Not Available [facility] 2 11:43:21 Recurrent major depressiv e episodes, moderate 441663025 Active 2020 Not Available [facility] 2 11:43:21 Burping 774179574 Active 2019 Not Available [facility] 2 11:43:21 Psoriasis 8776538 Active 2018 Psoriasis Not Available [facility] 2 11:43:21 Migraine without aura, not refractor y 025768939 Active 2018 Not Available [facility] 2 11:43:21 Hypothyro idism 31658115 Active 2015 Hypothyro idism Hyp othyroidi sm Not Available [facility] 2 11:43:21 Leukoplak ia of tongue 41256470 Active 2017 Not Available [facility] 2 11:43:21 Total urinary incontine nce 810063549 Active 2019 Not Available [facility] 2 11:43:22 Hyperlipi demia 46774173 Active 2015 Hyperlipi demia Not Available [facility] 2 11:43:22 Dental prostheti c device in situ 006125973 Active 2017 Not Available [facility] 2 11:43:22 Psoriatic arthritis 463371001 Active 2019 Not Available [facility] 2 11:43:22 Candidal intertrig o 484253230 Active 2018 Not Available [facility] 2 11:43:22 Depressed mood 694829771 Active 2015 Depressed mood Not Available [facility] 2 11:43:22 Insomnia 225647511 Active 2018 Insomnia Not Available [facility] 2 11:43:22 Erythrocy te sedimenta tion rate above reference range 766654723 Active 2018 Not Available [facility] 2 11:43:23 Polyp of colon 51486786 Active 2021 Not Available [facility] 2 11:43:23 Bladder muscle dysfuncti on - overactiv e Active 2018 Not Available [facility] 2 11:43:23 Chronic pain syndrome 981034794 Active 2016 Not Available [facility] 2 11:43:23 Pain in bilateral legs 80248803545 262357 Active 2018 Not Available [facility] 2 11:43:23 Abdominal bloating 605710767 Active 2021 Not Available [facility] 2 11:43:23 Irritable bowel syndrome character ized by constipat ion 163368922 Active 2021 Not Available [facility] 2 11:43:24 Morbid obesity 504805801 Active 2019 Not Available [facility] 2 11:43:24 Nausea and vomiting 66083924 Active 2021 Not Available [facility] 2 11:43:24 Gastroeso phageal reflux disease 814068423 Active 2019 Not Available [facility] 2 11:43:24 Blood-tin ged feces 23501152415 4102 Active 2019 Not Available [facility] 2 11:43:24 Cough 01578553 Active 2020 Not Available [facility] 2 11:43:24 Hypersomn ia 99589992 Active 2017 Not Available [facility] 2 11:43:25 Benign essential hypertens ion 0280846 Active 2015 Benign essential hypertens ion Not Available [facility] 2 11:43:25 Gastro-es ophageal reflux disease with esophagit is 128513167 Active 2019 Not Available [facility] 2 11:43:25 Esophagea l dysphagia 81486774 Active 2021 Not Available [facility] 2 11:43:25 Incontine nce 06942141 Active 2019 Incontine nce Not Available [facility] 2 11:43:25 Type 2 diabetes mellitus 97982788 Active 2018 Not Available [facility] 2 11:43:26 Primary insomnia 1675895 Active 2017 Not Available [facility] 2 11:43:26 Pain in left lower limb 604012083 Active 2018 Not Available [facility] 2 11:43:26 Wound of skin 966352210 Active 2018 Not Available [facility] 2 11:43:26 Acute exacerbat ion of chronic obstructi ve pulmonary disease 940236486 Active 2015 Acute exacerbat ion of chronic obstructi ve airways disease Not Available [facility] 2 11:43:26 Iron deficienc y anemia 91259690 Active 2017 Not Available [facility] 2 11:43:27 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 657039705 Active 2021 Not Available [facility] 2 11:43:27 History of calculus of kidney 928086912 Active 2019 Not Available [facility] 2 11:43:27 Sebaceous cyst of skin 169200732 Active 2019 Not Available [facility] 2 11:43:27 Body mass index 40+ - severely obese 875402266 Active 2018 Not Available [facility] 2 11:43:28 New daily persisten t headache 39458072658 9105 Active 2018 Not Available [facility] 2 11:43:28 Fatigue 52293722 Active 2017 Not Available [facility] 2 11:43:28 Transform ed migraine 750804507 Active 2021 Not Available [facility] 2 11:43:28 Chronic idiopathi c constipat ion 06857474 Active 2019 Not Available [facility] 2 11:43:28 Diarrhea of presumed infectiou s origin 79426509 Active 2023 Roya Potter NP [address], [address], [place], [address] , [facility] & [place] 4 11:40:33 Problem Notes None recorded. Procedures Surgical History Date Name Laterality Status Provider Name and Address Organization Details Recorded Time 01/03 esophagogastroduodenoscopy completed Chantelle Nguyen [place] - [place] [facility] & [place] 4 16:19:24 02/28 Botox Migraine completed Mark Marrero M.D [address], [address], [address] , [facility] & [place] 3 16:54:23 11/24 Botox Migraine completed Mark Marrero M.D [address], [address], [address] , [facility] [place] 3 20:24:15 08/26 EMG/ Nerve Conduction Study completed Arjun Marrero M.D [address] [place] [address], [address], [place], [address] , [facility] & [place] 2 16:33:52 08/18 Botox Migraine completed Mark Marrero M.D [address] [place] [address], [address], [place], [address] , [facility] & [place] 2 12:51:34 Imaging Results None recorded. Procedure Notes None recorded. Medical Equipment None Reported. Allergies Allergen ID Allergen Name Allergen Category Reaction Reaction Severity Criticality Documentation Date Start Date Code Code System Note Provider Name and Address Organization Details Recorded Time 43027 Substance with sulfonami de structure and antibacte rial mechanism of action (substanc e) medicatio n Not available Not available Not available 01/25/2023 [id number] SNOMED Shayy Villegas NP, [address] [place], [address], [facility] & [place] 3 08:34:28 8636 penicilli n G Not available Not available Not available Not available 05/17/2022 7980 RxNorm React ion: rash, sever ity: Unkno wn Not Available [facility] 2 01:57:01 8640 Toradol medicatio n Not available Not available Not available 05/17/2022 32661 RxNorm React ion: rash, sever ity: Unkno wn Not Available [facility] 2 01:57:01 Medications Name Sig Start Date Stop Date Status Note LastModified by Organization Details LastModified Time cyclobenzap rine 10 mg tablet TAKE 1 TABLET 3 TIMES EACH DAY NEEDED FOR MUSCLE SPASM active Not Available Not Available No t Available Miralax 17 gram/dose oral powder Take 17 g by oral route as directed for 2 days. 2023 active Not Available Not Available Not Avai lable metformin 500 mg tablet TAKE 2 TABLETS ONE TIME DAILY WITH MEALS for 90 active Not Available Not Available No t Available levothyroxi ne 175 mcg tablet active Not Available Not Available Not Available prednisone 10 mg tablet TAKE 4 TABLETS BY MOUTH DAILY X 3 DAYS, THEN 2 TABLETS DAILY X 3 DAYS, THEN 1 TABLET DAILY X 3 DAYS 11/29 completed Not Available Not Available Not Available doxycycline hyclate 100 mg capsule active Not Available Not Available N ot Available albuterol sulfate 2.5 mg/3 mL (0.083 %) solution for nebulizatio n INHALE THE CONTENTS OF 1 VIAL VIA NEBULIZER EVERY 8 HOURS NEEDED for 90 active Not Available Not Available No t Available azithromyci n 250 mg tablet 09/15 completed Not Available Not Available Not Available ibuprofen 800 mg tablet TAKE 1 TABLET BY ORAL ROUTE EVERY 12 HOURS NEEDED active Not Available Not Available No t Available fluconazole 150 mg tablet active Not Available Not Available Not Available benzonatate 200 mg capsule 11/29 completed Not Available Not Available Not Available valacyclovi r 1 gram tablet TAKE 1 TABLET EVERY 8 HOURS FOR SHINGLES active Not Available Not Available No t Available hydrocodone 5 mg-acetamin ophen 325 mg tablet 11/29 completed Not Available Not Available Not Available sucralfate 1 gram tablet TAKE 1 TABLET THREE TIMES DAILY PRIOR TO EATING 2024 active Not Available Not Available Not Avai lable prednisone 20 mg tablet 11/29 completed Not Available Not Available Not Available triamcinolo ne acetonide 0.5 % topical ointment 11/29 completed Not Available Not Available Not Available hydrocodone 10 mg-acetamin ophen 325 mg tablet TAKE 1 TABLET 4 TIMES EACH DAY active Not Available Not Available No t Available amitriptyli ne 50 mg tablet TAKE 1 TABLET ONE TIME DAILY AT BEDTIME for 90 11/29 completed Not Available Not Available Not Available glimepiride 2 mg tablet TAKE 1 TABLET ONE TIME DAILY WITH BREAKFAST OR THE FIRST MAIN MEAL OF THE DAY for 90 active Not Available Not Available No t Available pantoprazol e 20 mg tablet,kim yed release TAKE 1 TABLET EVERY DAY 11/29 completed Not Available Not Available Not Available citalopram 20 mg tablet TAKE 1 TABLET EVERY DAY for 90 active Not Available Not Available No t Available methocarbam ol 750 mg tablet active Not Available Not Available Not Available meclizine 25 mg tablet TAKE 1 TABLET 1 TIME EACH DAY NEEDED FOR VERTIGO active Not Available Not Available No t Available doxycycline monohydrate 100 mg capsule active Not Available Not Available Not Available hydrocodone 7.5 mg-acetamin ophen 325 mg tablet TAKE 1 TABLET BY MOUTH 4 TIMES DAILY active Not Available Not Available No t Available cephalexin 500 mg capsule TAKE 1 CAPSULE BY MOUTH EVERY 12 HOURS FOR 10 DAYS 11/29 completed Not Available Not Available Not Available pantoprazol e 40 mg tablet,kim yed release TAKE 1 TABLET EVERY DAY DIRECTED 2023 active Not Available Not Available Not Avai lable nystatin 100,000 unit/gram topical cream APPLY A THIN FILM TO THE AFFECTED AREA OF SKIN 2 TIMES EACH DAY FOR YEAST INFECTION active Not Available Not Available No t Available promethazin e 25 mg tablet TAKE 1 TABLET EVERY 6 HOURS NEEDED FOR NAUSEA AND VOMITING active Not Available Not Available No t Available levothyroxi ne 150 mcg tablet TAKE 1 TABLET ONE TIME DAILY IN THE MORNING ON AN EMPTY STOMACH for 90 11/29 completed Not Available Not Available Not Available indomethaci n 25 mg capsule TAKE 1 CAPSULE EVERY 8 HOURS NEEDED FOR HEADACHE for 30 11/29 completed Not Available Not Available Not Available indomethaci n 50 mg capsule active Not Available Not Available Not Available betamethaso ne dipropionat e 0.05 % topical cream active Not Available Not Available Not Available gabapentin 300 mg capsule TAKE 1 CAPSULE IN THE MORNING. TAKE 1 CAPSULE IN THE AFTERNOON . TAKE 2 CAPSULES AT BEDTIME. active Not Available Not Available No t Available montelukast 10 mg tablet TAKE 1 TABLET EVERY DAY for 90 active Not Available Not Available No t Available lisinopril 5 mg tablet TAKE 1 TABLET EVERY DAY for 90 active Not Available Not Available No t Available gabapentin 100 mg capsule TAKE 1 CAPSULE BY MOUTH THREE TIMES DAILY active Not Available Not Available No t Available clobetasol 0.05 % topical ointment active Not Available Not Available Not Available estradiol 0.01% (0.1 mg/gram) vaginal cream active Not Available Not Available Not Available levofloxaci n 750 mg tablet TAKE 1 TABLET 1 TIME EACH DAY FOR 7 DAYS active Not Available Not Available No t Available albuterol sulfate HFA 90 mcg/actuati on aerosol inhaler INHALE 2 PUFFS EVERY 6 HOURS NEEDED FOR RESCUE for 75 active Not Available Not Available No t Available ondansetron 4 mg disintegrat ing tablet PLACE 1 TABLET EVERY 4-6 HOURS ON THE TONGUE NEEDED FOR 10 DAYS. active Not Available Not Available No t Available topiramate 100 mg tablet TAKE 1 TABLET TWICE DAILY for 90 active Not Available Not Available No t Available fluticasone propionate 50 mcg/actuati on nasal spray,suspe nsion 2 sprays Nasally Once a day for 90 days active Not Available Not Available No t Available amitriptyli ne 100 mg tablet TAKE 1 TABLET AT BEDTIME for 30 active Not Available Not Available No t Available Dulcolax (bisacodyl) 5 mg tablet,kim yed release Take 2 tablets by oral route as directed for 1 day. 2023 active Not Available Not Available Not Avai lable oxycodone 5 mg tablet active Not Available Not Available No t Available hydroxyzine pamoate 25 mg capsule TAKE 1 CAPSULE EVERY 8 HOURS NEEDED FOR ANXIETY for 90 active Not Available Not Available No t Available azithromyci n 500 mg tablet 11/29 completed Not Available Not Available Not Available Humira 40 mg/0.8 mL subcutaneou s syringe kit 0.8 ml Subcutane ous every 2 weeks 11/29 completed Not Available Not Available Not Available Premarin 0.625 mg/gram vaginal cream APPLY A PEA SIZED AMOUNT TO THE VAGINA 1 TIME EACH DAY active Not Available Not Available No t Available rosuvastati n 20 mg tablet TAKE 1 TABLET ONE TIME DAILY AT BEDTIME for 90 active Not Available Not Available No t Available pregabalin 150 mg capsule TAKE 1 CAPSULE BY MOUTH TWICE DAILY active Not Available Not Available No t Available Humira Pen 40 mg/0.8 mL subcutaneou s kit 11/29 completed Not Available Not Available Not Available Lantus Solostar U-100 Insulin 100 unit/mL (3 mL) subcutaneou s pen INJECT 94 UNITS UNDER THE SKIN 1 TIME EACH DAY IN THE EVENING active Not Available Not Available No t Available levocetiriz ine 5 mg tablet 1 tablet in the evening Orally Once a day for 90 active Not Available Not Available No t Available diclofenac 1 % topical gel 11/29 completed Not Available Not Available Not Available Botox 200 unit injection 11/29 completed Not Available Not Available Not Available Myrbetriq 50 mg tablet,exte nded release TAKE 1 TABLET ONE TIME DAILY for 90 active Not Available Not Available No t Available Linzess 145 mcg capsule TAKE 1 CAPSULE BY MOUTHAT LEAST 30 MINUTES BEFORE THE FIRST MEAL OF THE DAY ON AN EMPTY STOMACH 11/29 completed Not Available Not Available Not Available Linzess 290 mcg capsule TAKE 1 CAPSULE EVERY DAY active Not Available Not Available No t Available Jardiance 10 mg tablet TAKE 1 TABLET EVERY DAY for 90 11/29 completed Not Available Not Available Not Available Jardiance 25 mg tablet active Not Available Not Available Not Available Droplet Pen Needle 32 gauge x active Not Available Not Available Not Available Taltz Autoinjecto r 80 mg/mL subcutaneou s active Not Available Not Available Not Available Linzess 72 mcg capsule Take 1 capsule every day by oral route for 90 days. 2024 active Not Available Not Available Not Avai lable Trelegy Ellipta 100 mcg-62.5 mcg-25 mcg powder for inhalation 11/29 completed Not Available Not Available Not Available Aimovig Autoinjecto r 70 mg/mL subcutaneou s auto-inject or 11/29 completed Not Available Not Available Not Available Tremfya 100 mg/mL subcutaneou s auto-inject or 11/29 completed Not Available Not Available Not Available Ubrelvy 100 mg tablet 11/29 completed Not Available Not Available Not Available [facility] ODT 75 mg disintegrat ing tablet 1 tablet on the tongue and allow to dissolve Orally daily prn headache for 30 day(s) 11/29 completed Not Available Not Available Not Available Qulipta 60 mg tablet 11/29 completed Not Available Not Available Not Available Vitals Date Recorded Body height Body mass index (BMI) Body weight Body temperature Oxygen saturation Oxygen saturation in Arterial blood by Pulse oximetry Heart rate Provider Name and Address Organization Details Last Updated DateTime 4 170.18 cm 43.7 kg/m2 838583. 27 g 97.3 [degF] 95 % 95 % 102 /min Kath Barrow [facility] & [place] 4 10:54:09 Date Recorded Body height Body mass index (BMI) Body weight Systolic And Diastolic Provider Name and Address Organization Details Last Updated DateTime 01/25/2023 170.18 cm 41.5 kg/m2 860366.98 g 130/76 mm[Hg] Sarai Nguyễn [facility] & [place] 01/25/2023 09:19:05 Date Recorded Body height Body mass index (BMI) Body weight Body temperature Oxygen saturation Oxygen saturation in Arterial blood by Pulse oximetry Heart rate Provider Name and Address Organization Details Last Updated DateTime 4 170.18 cm 42.3 kg/m2 399211. 94 g 97.6 [degF] 96 % 96 % 91 /min Alka Sams [facility] & [place] 4 11:21:49 Date Recorded Body height Provider Name an d Address Organization Details Last Updated DateTime 04/28/2023 170.18 cm Donna Zaldivar [facility] & [place] 04/28/2023 13:47:19 Social History Question Answer Notes LastModified by [employer] Details LastModified Time Tobacco Smoking Status Current Every Day Smoker Not Available [facility] 05/17/2022 09:51:50 How Much Tobacco Do You Smoke? 0.5 PPD Information not available 01/25/2023 Sex: Unknown Functional Status Question Answer Note LastModified by [employer] Details LastModified Time Do you use any illicit or recreational drugs? No Information not available 01/25/2023 What is your level of alcohol consumption? None Information not available 01/25/2023 Mental Status None recorded. Family History Nothing Reported Notes:Mother- kidney, bladde r, heart Disease,Arthritis() Father- heart disease,Arthritis() Brother- Arthritis(Living) Sister- lupus, Fibromyalgia, bladder issues, Arthritis(Living) Medical History No medical history recorded. Gynecological HistoryNo gynecological history recorded. Obstetrics History GPAL:G 0 P 0 0 0 0 Immunizations Vaccine Type Date Status Note Provider Nam e and Address Organization Details Recorded Time Pneumococcal conjugate PCV 13 6 completed Not Available [facility] 05/17/2022 10:27:03 Influenza, split virus, trivalent, PF 6 completed Not Available [facility] 05/17/2022 10:27:03 Influenza, split virus, trivalent, preservative 7 completed Not Available [facility] 05/17/2022 10:27:03 COVID-19 vaccine, vector-nr, rS-Ad26, PF, 0.5 mL completed Not Available [facility] 05/17/2022 10:27:03 Past Encounters Encounter ID Performer Location Encounter Start Date Encounter Closed Date Diagnosis/Indication Diagnosis SNOMED-CT Code Diagnosis ICD10 Code Diagnosis Note [id number] Michael Hrendon [facility] [address],[facility] [address] [place] [address] 05/18/2022 09:16:58 05/18/2022 10:55:36 Chronic intractable migraine without aura 7743874760 66621 G43.719 [id number] Mark Marrero M.D [facility] [address] [place] [address] 08/18/2022 08:51:30 08/18/2022 09:28:59 Chronic intractable migraine without aura 5277453039 22386 G43.719 Polyneuropathy 82817447 G62.9 [id number] Mark Marrero M.D [facility] [address] [place] [address] 08/26/2022 12:37:32 08/26/2022 13:32:06 Idiopathic peripheral neuropathy 34579920 G60.9 Sensory disorder 0261432 8 R20.1 Abnormal sensation 10242 2000 R20.9 [id number] Roya Potter NP [facility] [address] [facility] [place] [address] 09/15/2022 08:58:03 09/15/2022 15:37:12 Irritable bowel syndrome characterized by constipation 269493332 K58.1 Currently controlled with use of Linzess 290 mcg and fiber bars. Recommend continued use. Will send refills today. Gastro-eso phageal reflux disease with esophagitis 751787115 K21.00 Remains well controlled with use of pantoprazo le 40 mg daily. Will send refills. Nausea 146584143 R11.0 only occasional episodes at this time. No etiology identified on EGD from 11/20/21. Normal GES from 2019. Hx of cholecyste ctomy. [id number] Mark Marrero M.D [facility] [address] [place] [address] 11/24/2022 08:50:08 11/24/2022 09:51:40 Chronic intractable migraine without aura [id number] 96694 G43.719 [id number] Shayy Villegas NP, S [facility] [address] [place] [address],[address] [place] [address] 01/25/2023 08:28:49 01/25/2023 09:33:16 Nocturia 220967062 R35.1 History of calculus of kidney 649635222 Z87.442 Mixed urin bruna incontinence 971290330 N39.46 UA clearPVR 94ccSchedu le Renal US and KUBRTC to discuss results and for office flexible cysto under local for further evaluation . History of diabetes mellitus 432616050 Z86.39 [id number] Mark Marrero M.D [facility] [address] [address] 02/28/2023 08:15:04 02/28/2023 09:31:26 Chronic intractable migraine without aura 5601582398 74538 G43.719 [id number] Jude Flowers MD [facility] [address] [place] [address],[facility] [address] [place] [address] 04/28/2023 13:30:25 04/28/2023 14:38:44 Urinary incontinence 656890170 N39.46 Nocturia 604709170 R35.1 History of calculus of kidney 787862105 Z87.442 History of diabetes mellitus 657967168 Z86.39 [id number] Isrrael Magallon M.D [facility] [address] [place] [address],[place] [address] 11/30/2023 10:14:31 11/30/2023 11:28:16 Dysphagia 24683816 R13.10 Foods to avoid such as meats and bread discussed as they would get stuck. She is to hydrate well. She was advised to be careful while swallowing . We will schedule her for upper endoscopy. We will also refer her for a swallowing tests, Including modified barium esophagram barium swallow Irritable bowel syndrome characterized by constipation 723659207 K58.1 Advised she can try the lowest dose of Linzess. We will provide her with Linzess 72 mcg. [id number] Roya Potter NP [facility] [address] [facility] [place] [address] 02/15/2024 11:05:44 02/15/2024 12:35:19 Gastro-esophageal reflux disease with esophagitis 631986416 K21.00 Remains well controlled with use of pantoprazo le 40 mg daily. Will send refills. History of Schatzkis ring [id number] 7680178 Z87.19 Noted on EGD 01/04/2024 . Status post esophageal dilatation up to 20 mm using a dilating balloon with resolution of symptoms at this time. Diarrhea o f presumed infectious origin 33760360 A09 Experienci ng episodes of watery loose stool with urgency lasting 2-3 days. Recommend x-ray abdomen KUB to rule out underlying stool burden given history of constipati on however patient declines at this time. Plan for stool studies to further evaluate. Plan for colonoscop y with random colon biopsies rule out underlying colitis, lesions, other. Last colonoscop y 2021. Health Concerns Section Related Observation LastModified by Organization Detai ls LastModified Time None Recorded Concern Status LastModified by Organization Details LastModified Time None Recorded Advance Directives Directive None Recorded Payers Insurance Date Sequence Insurance Name Policy Number Policy Hayes Covered Member ID Hayes Member ID Guarantor Name 03/24/2024 1 [employer] (MEDICARE REPLACEMENT/A DVANTAGE - HMO) Debbie Pagan [id number] Debbie Pagan 01/27/2023 1 [place] Debbie Pagan [id number] Debbie Pagan 06/15/2024 1 [employer] (MEDICARE REPLACEMENT/A DVANTAGE - HMO) Debbie Pagan [id number] Debbie Pagan Notes Date Note Type Note Provider Name and Address Organization Details Recorded Time 01/25/2023 text/html 57 yowf presents to clinic for evaluation of mixed urinary incontinence. Patient has a longstanding history of mixed urinary incontinence. Patient reports in 2007 she underwent bladder sling per Dr. Collier. Reports in 2012 she started experiencing urinary incontinence again. Patient reports she has tried several different medications including oxybutynin different drinks as well as Myrbetriq 25 mg and Myrbetriq 50 in which she is currently taking. She reports none of the medications has helped. Reports she wears a depends daily, changes the depends at least 6 to 7 times a day. She reports urinary stream is good. Nocturia times 4-6. Bowels move regularly, is on Linzess daily. She denies any dysuria or gross hematuria. Denies any history of recurrent UTIs. Patient has a history of kidney stones, had surgery in [address] Flowers. Reports she has not had any recent imaging of kidneys. Patient is a insulin-dependent diabetic, reports blood sugars run around 120. Reports she has a history of glaucoma. Had a complete hysterectomy in 1993 related to endometriosis. Patient also has a history of COPD, fibromyalgia, and sleep apnea. Shayy Villegas NP, [address], [place], [address], [facility] [place] & [place] 01/25/2023 09:38:03 04/28/2023 text/html Patient returns to clinic today for follow-up of severe, indiscriminate incontinence. She states that she leaks all the time and awakens soaking wet. She states that her depends undergarment is loaded with urine. She states urine will gush out before she can get her clothing/undergarmen ts down prior to voiding. She is had no benefit from her Mybetriq/ medical therapy. Patient also has chronic bowel issues. The patient has had a nerve stimulator placed in the past for pain which did not help and was removed. The patient states that she had approximately 7-9 years successful dryness after her sling procedure, however, she states that after she gained significant weight she started noticing worsening incontinence. See below past medical history:57 yowf presents to clinic for evaluation of mixed urinary incontinence. Patient has a longstanding history of mixed urinary incontinence. Patient reports in 2007 she underwent bladder sling per Dr. Collier. Reports in 2012 she started experiencing urinary incontinence again. Patient reports she has tried several different medications including oxybutynin different drinks as well as Myrbetriq 25 mg and Myrbetriq 50 in which she is currently taking. She reports none of the medications has helped. Reports she wears a depends daily, changes the depends at least 6 to 7 times a day. She reports urinary stream is good. Nocturia times 4-6. Bowels move regularly, is on Linzess daily. She denies any dysuria or gross hematuria. Denies any history of recurrent UTIs. Patient has a history of kidney stones, had surgery in [address] Flowers. Reports she has not had any recent imaging of kidneys. Patient is a insulin-dependent diabetic, reports blood sugars run around 120. Reports she has a history of glaucoma. Had a complete hysterectomy in 1993 related to endometriosis. Patient also has a history of COPD, fibromyalgia, and sleep apnea. Jude Flowers MD [address], [place], [address], [facility] - [facility] & [place] 04/28/2023 14:11:08 11/30/2023 text/html Debbie Pagan i s a 58-year-old female who presents today for complaints of swallowing difficulties.She reports she is having trouble swallowing associated with vomiting and feeling like she needs to bring the food back up. She had her last scope done in November 2021. She denies any abdominal pain. She denies any problems with her liver that she knows of.She reports she was put on Linzess and reports it is too strong for her, so stopped it. She had explosive diarrhea when she was on it.She is on pantoprazole for acid reflux. She has hoarseness due to cough.She has had cholecystectomy. Isrrael Magallon M.D [address] [place] [address], [address], [place], [address], [facility] - [facility] & [place] 12/01/2023 16:19:37 02/15/2024 text/html Patient returns to clinic today for follow up on upper endoscopy. EGD completed 01/04/2024 with small hiatal hernia and Schatzki's ring dilated up to 20 mm using dilating balloon. Nonerosive gastritis was noted. Pathology confirmed mild reflux changes as well as reactive gastropathy negative H pylori. Symptoms of dysphagia have resolved at this time. She continues pantoprazole for treatment of GERD. Previously prescribed Linzess 72 mcg for treatment of constipation however discontinued due to diarrhea. She reports daily bowel movements with episodes of severe diarrhea with urgency lasting 2-3 days. Denies abdominal pain or hematochezia. EGD/colonoscopy 3/18/22 noted mild gastritis and reflux esophagitis. Negative H pylori or celiac sprue. Colonoscopy with hyperplastic polyp.Normal GES from 2020. Roya Potter NP [address] [place] [address], [address], [place], [address], [facility] & [place] 02/15/2024 14:46:08 OBGyn Episode No OBEpisode recorded.
--- OUTSIDE RECORDS SUMMARY | 2025-03-19 09:03 | XMS_ITS | Encounter Summary ---
Author Organization [employer] ([place], [place], [place], [place]) Address [address] [facility] [facility] [place] [address] Care Team Providers Care Cast Iron Dipper Name Role Phone Unavailable Primary Care Provider Unavailabl e Encounter Details Date Type Department Care Team (Late st Contact Info) Description 10/30/2019 Transcribed Document [facility] [place] [address] [place] [address] ProviderKevin MD [address] [place] [address] [id number] Social History Tobacco Use Types Packs/Day Years Used Date Smoking Tobacco: Never Assessed Comments Unknown Sex and Gender Information Value Date Recorded Sex Assigned at Not on file Legal Sex Female 6:40 PM CDT Gender Identity Not on file Sexual Orientation Not on file documented as of this encounter Miscellaneous Notes * Cerner Conversion Note - Kevin Orr MD - 10/30/2019 8:40 PM MILL LABORER Patient: ERASTO PAGAN Age: 54 years Sex: [...] , vision changes since . Seen at [facility] c labs/CT/CXR - dx c anxiety/UDS + [...] bending over. She was seen in the [facility] emergency room where they did a CT [...] EST Height Source Stated Height Entry Format Frontier Height/Length, DANISH (ft) 5 ft Height/Length DANISH 6 Inch CLINICALHEIGHT 167.64 cm [place] Body Weight 58.88 kg Weight Source, ED Critical estimated dosing weight Weight Entry Format Frontier Weight Hong Konger lb 250 lb CLINICALWEIGHT 113.64 kg Body [...] had a negative CT of the head [facility] will proceed with CTA of the head [...] Triage: ED C-SSRS: ED Clinical Reconciliation: ED formwork carpenter: Extra Blue Tube: Normal Saline Flush: 10 [...] needed for dizziness, 30 Tab, 0 Refill(s). child monitor: Normal sinus rhythm. Electrocardiogram: Time 10/30/2019 18:11:00, rate 71, normal sinus rhythm, No ST changes, no ectopy, normal OR & QRS intervals, EP Interp. Results review: Lab results : Lab Results 10/30/2019 21:56 EST Urine Type. U CleanCatch Urine Color Yellow Urine Appearance Clear Urine Specific Clay 1.006 Urine pH Dipstick 6.5 Urine Leukocyte [...] % 28.8 % Lymph # 3.26 x10(3)/uL Mccone % 6.5 % Mccone # 0.74 K/uL Eos % 4.1 % Eos # 0.46 x10(3)/uL Baso % 0.8 % Baso # 0.09 x10(3)/uL Slide Review No IG# 0.05 x10(3)/uL IG% 0.40 % 10/30/2019 20:19 EST PT 10.6 Second(s) INR 1.0 D Dimer Quant see comment mg/L FEU . Radiology results: Radiology Results (Last 48 hours) [id number] -- 10/30/2019 17:38 CR Chest 2 Vws [...] 0:08 EST, Discharge to: Home. Prescriptions: Prescription Television Camera Operator Pharmacy: meclizine 25 mg oral tablet (Prescribe): [...] treatment plan, Patient indicated understanding of instructions. Electronically signed by Zoraida Johnson Conversion Clinical Athletic Instructor Cerner at 12/24/2022 10:32 AM CDT documented in this encounter Plan of Treatment Not on file documented as of this encounter Visit Diagnoses Not on filedocumented in this encounter
--- OUTSIDE RECORDS SUMMARY | 2025-03-19 09:03 | XMS_ITS | Encounter Summary ---
Author Organization [employer] ([place], [place], [place], [place]) Address [address] [facility] [place] [address] Care Team Providers Care Data Sciences Director Name Role Phone Unavailable Primary Care Provider Unavailabl e Encounter Details Date Type Department Care Team (Late st Contact Info) Description 10/31/2019 Transcribed Document [facility] [place] Family Medicine [address] [place] [address] ProviderKevin MD [address] [place], [place] [id number] Social History Tobacco Use Types Packs/Day Years Used Date Smoking Tobacco: Never Assessed Comments Unknown Sex and Gender Information Value Date Recorded Sex Assigned at Not on file Legal Sex Female 6:40 PM CDT Gender Identity Not on file Sexual Orientation Not on file documented as of this encounter Miscellaneous Notes * Cerner Conversion Note - Kevin ProviderMD - 10/31/2019 10:47 AM HOTEL DIRECTOR CR Chest 2 Vws Ordered: 10/30/2019 Auth (Verified) Reason for Exam: dizziness/near syncope 10/30/2019 20:30 10/31/2019 10:47 (ANDRZEJ NG) No further action required documented in this encounter Plan of Treatment Not on file documented as of this encounter Visit Diagnoses Not on filedocumented in this encounter
--- OUTSIDE RECORDS SUMMARY | 2025-03-19 09:03 | XMS_ITS | Encounter Summary ---
Author Organization [employer] ([place], [place], [place], [place]) Address [address] [place] [address] Care Team Providers Care Engineering Specialist Name Role Phone Unavailable Primary Care Provider Unavailabl e Encounter Details Date Type Department Care Team (Late st Contact Info) Description 10/30/2019 Transcribed Document [facility] Family Medicine [address] [place] [address] ProviderKevin MD [facility] [place], [place] [id number] Social History Tobacco Use Types Packs/Day Years Used Date Smoking Tobacco: Never Assessed Comments Unknown Sex and Gender Information Value Date Recorded Sex Assigned at Not on file Legal Sex Female 6:40 PM CDT Gender Identity Not on file Sexual Orientation Not on file documented as of this encounter Miscellaneous Notes * Cerner Conversion Note - Kevin Orr MD - 10/30/2019 5:38 PM ASSISTANT CURATOR ED Assessment Entered On: 10/30/2019 21:46 EST Performed On: 10/30/2019 21:43 EST by Monika Edwards RN ED Quick Look Assessment Level of Consciousness : Alert, Awake Affect/Behavior : Appropriate, Calm, Cooperative Orientation : Oriented x 4 Monika Edwards RN - 10/30/2019 21:43 EST ED General-Functional Assess Information Obtained From : Patient, Care provider Communication Barrier : None Primary Language : South Korean Any Spiritual/Cultural Needs or Requests : No [...]
--- OUTSIDE RECORDS SUMMARY | 2025-03-19 09:03 | XMS_ITS | Encounter Summary ---
Author Organization [employer] ([place], [place], [place], [place]) Address [address] [place] [address] Care Team Providers Care Anesthesiologist Physician Name Role Phone Unavailable Primary Care Provider Unavailabl e Encounter Details Date Type Department Care Team (Late st Contact Info) Description 10/31/2019 Transcribed Document [facility] [place] [address] [place] [address] ProviderKevin MD [facility] [place], [place] [id number] Social History Tobacco Use Types Packs/Day Years Used Date Smoking Tobacco: Never Assessed Comments Unknown Sex and Gender Information Value Date Recorded Sex Assigned at Not on file Legal Sex Female 6:40 PM CDT Gender Identity Not on file Sexual Orientation Not on file documented as of this encounter Miscellaneous Notes * Cerner Conversion Note - Kevin ProviderMD - 10/31/2019 12:07 AM COMMUNITY PLACEMENT WORKER Electronically signed by [facility] Conversion Rate Quoting Operator Mara at 12/24/2022 10:20 AM CDT documented in this encounter Plan of Treatment Not on file documented as of this encounter Visit Diagnoses Not on filedocumented in this encounter
--- OUTSIDE RECORDS SUMMARY | 2025-03-19 09:03 | XMS_ITS | Encounter Summary ---
Author Organization [employer] ([place], [place], [place], [place]) Address [address] [place] [address] Care Team Providers Care Crocodile Farmer Name Role Phone Unavailable Primary Care Provider Unavailabl e Encounter Details Date Type Department Care Team (Late st Contact Info) Description 10/31/2019 Transcribed Document [facility] [place] Family Medicine [address] [place] [address] ProviderKevin MD [address] [place] [address] Social History Tobacco Use Types [...] Kevin Orr MD - 10/31/2019 12:[address] [place] [address] ERASTO PAGAN :1965 Visit Time:10/30/2019 [...] with any acute worsening symptoms. Where: [address] [place] [address]- Business (1) Follow Up with Patient Resource [...] range between ( 0.0 and 7.0 ) [place] #: 0.74 K/uL -- Normal range between ( 0.16 and 1.00 ) Eos #: 0.46 x10(3)/uL -- Normal range between ( 0.00 and 0.80 ) [place] %: 6.5 % -- Normal range between [...] ) Urine Bilirubin Dipstick: Negative Urine Specific Johnson: 1.006 -- Normal range between ( 1.005 and 1.030 ) Urine Type.: U [facility] General Chemistry 10/30/2019 8:28 PM Creatinine Level: [...] Follow these instructions at home: ??? Take ledc-hur-bfpnfif and prescription medicines only as told by [...] 06/19/2010 Document Revised: 09/20/2017 Document Reviewed: 09/20/2017 SupportLocal Interactive Patient Education ?? 2019 SupportLocal Inc. Vertigo Vertigo is the feeling that [...] in ear, nose, and throat (ENT) problems (manager internet retails sales) or a provider who specializes in disorders [...] safe for you. General instructions ??? Take vgca-mwl-xhldaht and prescription medicines only as told by [...] 12/15/2015 Elsevier Interactive Patient Education ?? 2019 ElseEdinburgh [employer] Inc. Migraine Headache A migraine headache is [...] these instructions at home: Medicines ??? Take rvfe-mrr-ygfdvzt and prescription medicines only as told by your health care provider. ??? Do not drive or use heavy machinery while taking prescription pain medicine. ??? To prevent or treat constipation while you are taking prescription pain medicine, your health care provider may recommend that you: ? Drink enough fluid to keep your urine clear or pale yellow. ? Take jskf-uxy-isyddxd or prescription medicines. ? Eat foods that [...] 08/22/2006 Document Revised: 03/11/2017 Document Reviewed: 02/07/2017 SupportLocal Interactive Patient Education ?? 2019 SupportLocal Inc. Dizziness Dizziness is a common problem. [...] is fine. ??? If you need to contracting specialist one place for a long time, [...] your dizziness for any changes. ??? Take jkwp-ipy-vthlars and prescription medicines only as told by [...] 02/15/2002 Document Revised: 09/24/2017 Document Reviewed: 09/24/2017 SupportLocal Interactive Patient Education ?? 2019 SupportLocal Inc. Emergency Awareness and Preventative Care STROKE [...] Assistance with quitting is available by contacting 9-088-XNCK-NOW. This is a free resource providing counseling, support, and referral. Or you may contact your personal physician. PageScience Suicide Prevention Lifeline: The National Suicide Prevention [...] was given the opportunity to ask questions. Patient/Mechanical Engineering Teacher Name: Patient/Mechanical Engineering Teacher Signature: Relationship to Patient: Clinician/Hospital Mechanical Engineering Teacher Signature: Please Provide a Telephone Number Where You Can Be Reached: Is it Permissible To Leave a Message? Date: documented in this encounter Plan of Treatment Not on file documented as of this encounter Visit Diagnoses Not on filedocumented in this encounter
--- NOTE | 2025-03-19 09:14 | XR_ITS ---
FINAL REPORT CLINICAL HISTORY: shortness of breath COMPARISON: 02/07/2023 FINDINGS: 2 views of the chest were obtained . The heart is normal in size. The mediastinum is within normal limits. The lungs are clear. There is no pneumothorax. Osseous structures are unremarkable. IMPRESSION: No acute cardiopulmonary process. Reviewed, Interpreted and Dictated by Steffany Castillo MD Transcribed by Trudy Birch Authenticated and [facility]
--- NOTE | 2025-03-19 09:17 | PC.NURSE ---
lab called for VBG
--- NOTE | 2025-03-19 09:23 | ECG_ITS ---
APPROVED REPORT Exam: Resting ECG HR:69 bpm ECG Measurements Heart Rate 69 AXES CO 193 P 56 QRSd 83 QRS 46 QT 375 T 46 QTc 395 Conclusion Sinus rhythm without acute ST or T wave changes concerning for ischemia Electronically signed by : Maylin Ulloa, 03/20/2025 07:16:11
[2025-03-19 09:25] LABS: Lactate Venous 1.9 mmol/L (0.4-2.0); VBG HCO3 32.1 mmol/L (23-30); VBG PH 7.31 mmol/L (7.31-7.41); VBG PO2 43.5 mmol/L (28-40)
[2025-03-19 09:25] LABS: Adenovirus,PCR Not Detected (NotDetected); Chlamydophila Pneumoniae, PCR Not Detected (NotDetected); Coronavirus 19, PCR Not Detected (NotDetected); Coronovirus HKU1,PCR Not Detected (NotDetected); Influenza A, PCR Not Detected (NotDetected); Influenza AH1, 2009 Not Detected (NotDetected); Influenza AH1, PCR Not Detected (NotDetected); Influenza AH3,PCR Not Detected (NotDetected); Influenza B, PCR Not Detected (NotDetected); Mycoplasma Pneumoniae, PCR Not Detected (NotDetected); Parainfluenza 1, PCR Not Detected (NotDetected); Parainfluenza 2, PCR Not Detected (NotDetected); Parainfluenza 3, PCR Not Detected (NotDetected); Parainfluenza 4, PCR Not Detected (NotDetected)
[2025-03-19 09:27] LABS: Alanine Aminotransferase 55 U/L (12-78); Albumin Level 4.2 g/dl (3.5-5.0); Albumin/Globulin Ratio 1.1 (1.1-1.8); Alkaline Phosphatase 150 U/L (38-126); Anion Gap 14.0 mEq/L (5-15); Aspartate Amino Transferase 53 U/L (14-36); Bilirubin,Total 0.7 mg/dl (0.2-1.3); Blood Urea Nitrogen 8 mg/dl (7-17); Calcium 9.5 mg/dl (8.4-10.2); Carbon Dioxide 34 mmol/L (22.0-30.0); Chloride 96 mmol/L (98-107); Creatinine Clearance Estimated 80 mL/min (50-200); Creatinine,Serum 0.70 mg/dl (0.52-1.04); Estimated Glomerular Filt Rate 85 ml/min (>60); GFR (African American) 103 ML/MIN (>60); Globulin 3.8 g/dL (1.3-3.2); Glucose 76 mg/dl (74-100); Hematocrit 49.7 % (37.0-47.0); Hemoglobin 15.0 g/dL (12.2-16.2); Immature Granulocytes % 0.4 %; Mean Corpuscular HGB Conc 30.2 g/dL (31.8-35.4); Mean Corpuscular Hemoglobin 25.5 pg (27.0-31.2); Mean Corpuscular Volume 84.4 fl (81-99); Nucleated Red Blood Cells % 0.2 %; Platelet Count 288 K/mm3 (142-424); Potassium 4.0 mmoL/L (3.5-5.1); Red Blood Count 5.89 M/mm3 (4.20-5.40); Red Cell Distribution Width-SD 50.4 fL; Sodium 140 mmol/L (136-145); Total Protein,Serum 8.0 g/dl (6.3-8.2); White Blood Count 10.1 K/mm3 (4.8-10.8)
[2025-03-19 09:31] LABS: VBG PCO2 65.6 mmol/L (35-51)
[2025-03-19 09:34] LABS: INR 1.17 (0.9-1.1); Prothrombin Time 12.8 seconds (10.1-12.5)
[2025-03-19 09:39] LABS: Troponin I 0.02 ng/ml (0.00-0.034)
[2025-03-19 09:41] LABS: D-Dimer 0.78 ug/mL (0.0-0.5)
--- NOTE | 2025-03-19 10:05 | CT_ITS ---
FINAL REPORT TECHNIQUE: Postcontrast axial images of the chest were performed in a CTA protocol. This study was performed with techniques to keep radiation doses as low as reasonably achievable, (ALARA). Individualized dose reduction technique using automated exposure control or adjustment of mA and/or kV according to the patient's size were employed. CLINICAL HISTORY: shortness of breath, new oxygen requirement COMPARISON: 03/14/2025 FINDINGS: The heart is mildly enlarged. No adenopathy is identified. No pleural or pericardial effusion is identified. The thoracic aorta is normal in caliber with no focal aneurysm or dissection identified. There is no filling defect to suggest pulmonary embolism. There has been interval resolution of right pleural effusion and right lung atelectasis. There is stable, scattered mild left lung atelectasis. The images of the upper abdomen are unremarkable. IMPRESSION: No evidence for PE on this exam. No evidence of pneumonia with resolved right pleural effusion. Mild left lung atelectasis. Reviewed, Interpreted and Dictated by Steffany Castillo MD Transcribed by Trudy Birch Authenticated and [facility]
[2025-03-19] MEDS: IPRATROPIUM/ALBUTEROL 3 ML NEB IH (10:12)
[2025-03-19 10:45] LABS: Microscopic, Urine URINE MICROSCOPIC (MICROSCOPIC)
[2025-03-19 10:47] LABS: Bilirubin,Urine Negative (Negative); Color,Urine YELLOW (Yellow); Glucose,Urine (UA) Negative (Negative); Ketones,Urine Negative (Negative); Leukocyte Esterase,Urine TRACE (Negative); PH,Urine 8.0 (5.0-8.5); Protein,Urine Negative (Negative); Specific Gravity, Urine 1.010 (1.005-1.030); Urobilinogen,Urine 2.0 EU/dl (0.2)
[2025-03-19] MEDS: 0.9 % SODIUM CHLORIDE 50 ML VIAL IV (10:47)
[2025-03-19] MEDS: SODIUM CHLORIDE 0.9% 10ML SYR (RAD ONLY) 10 ML IV (10:47)
[2025-03-19] MEDS: IOPAMIDOL-370 (76%);100ML BOTTLE 70 ML IV (10:47)
[2025-03-19 10:58] LABS: RBC,Urine Occasional #/hpf (0-3)
[2025-03-19 10:59] LABS: Bacteria,Urine Trace /lpf; Renal Epithelial Cells,Urine Occasional #/lpf (0)
[2025-03-19 11:00] LABS: Squamous Epithelial Cell,Urine Occasional #/hpf (0-5)
[2025-03-19] MEDS: MAGNESIUM SULFATE IN WATER 2 GM/50 ML PIGGYBACK IV (11:43)
[2025-03-19] MEDS: IPRATROPIUM/ALBUTEROL 3 ML NEB 6 ML IH (11:43)
[2025-03-19] MEDS: METHYLPREDNISOLONE SOD SUCC 125MG VIAL 125 MG IV (11:43)
[2025-03-19 12:40] LABS: Troponin I 0.02 ng/ml (0.00-0.034)
--- NOTE | 2025-03-19 13:26 | PC.NURSE ---
Pt is resting comfortably in the bed. Pt provided a gown and warm blankets
== END 2025-03-19 15:55 | disposition home or self-care (01) ==
PROVIDERS: Emergency Provider Student in an Organized Health Care Education/Training Program; PCP Family Medicine
DX: J18.9 Pneumonia, unspecified organism (principal); J44.1 Chronic obstructive pulmonary disease with (acute) exacerbation; E87.29 Other acidosis; R53.1 Weakness; F17.210 Nicotine dependence, cigarettes, uncomplicated
CPT/HCPCS: 0223U; 71045; 71275; 80053; 81001; 82803; 84484; 85025; 85378; 85610; 87040; 87086; 87633; 93005; 96365; 96375; 99285; J2919; J3475; Q9967

== ENCOUNTER 2025-08-21 12:25 | Outpatient (CLI) | payer MEDICARE, SELFPAY ==
--- OUTSIDE RECORDS SUMMARY | 2025-08-22 10:44 | XMS_ITS | Clinical Summary ---
Author Organization [employer] ([place], [place], [place], [place], [place]) Address [address] [place] [address] Care Team Providers Care Ship'S Cook Name Role Phone Unavailable Primary Care Provider [...]
--- OUTSIDE RECORDS SUMMARY | 2025-08-22 10:44 | XMS_ITS | Encounter Summary ---
Author Organization [facility] Address [address] [place] [address] Care Team Providers Care Theology Professor Name Role Phone Amanda Morris Primary Care Provider [phone] Encounter Details Date Type Department Care Team (Late st Contact Info) Description 01/26/2024 Orders Only External Location [address] [place] [address] Kath Arteaga APRN, TINO [address] [facility] [address] [place] [id number] Social History Tobacco Use Types Packs/Day Years Used Date Smoking Tobacco: Former Cigarettes 2 Q uit: 2022 Passive Smoke Exposure: Yes [...] documented as of this encounter Care Teams Theology Professor Relationship Specialty Start Date End Date Amanda Morris PA [address] [place] [address] [place] [address] PCP - General 01/16/21 documented as of this encounter
--- OUTSIDE RECORDS SUMMARY | 2025-08-22 10:45 | XMS_ITS | Encounter Summary ---
Author Organization [employer] ([place], [place], [place], [place], [place]) Address [address] [place] [address] Care Team Providers Care Secretary Bookkeeper Name Role Phone Unavailable Primary Care Provider Unavailabl e Encounter Details Date Type Department Care Team (Late st Contact Info) Description 10/31/2019 Transcribed Document [facility] [place] [address] [place] [address] ProviderKevin MD [address] [place], [place] [address] Social History Tobacco Use Types Packs/Day Years Used Date Smoking Tobacco: Never Assessed Comments Unknown Sex and Gender Information Value Date Recorded Sex Assigned at Not on file Legal Sex Female 6:40 PM CDT Gender Identity Not on file Sexual Orientation Not on file documented as of this encounter Miscellaneous Notes * Cerner Conversion Note - Kevin ProviderMD - 10/31/2019 12:07 AM RESTAURANT HOST/HOSTESS Electronically signed by [facility] Conversion Mechanical Design Engineer Products Cerner at 12/24/2022 10:20 AM CDT documented in this encounter Plan of Treatment Not on file documented as of this encounter Visit Diagnoses Not on filedocumented in this encounter
--- OUTSIDE RECORDS SUMMARY | 2025-08-22 10:45 | XMS_ITS | Encounter Summary ---
Author Organization [employer] ([place], [place], [place], [place], [place]) Address [address] [place] [address] Care Team Providers Care Crop Or Grain Farmer Name Role Phone Unavailable Primary Care Provider Unavailabl e Encounter Details Date Type Department Care Team (Late st Contact Info) Description 10/30/2019 Transcribed Document [facility] [place] Family Medicine [address] [place] [address] ProviderKevin MD [address] [place], [place] [address] Social History Tobacco Use Types Packs/Day Years Used Date Smoking Tobacco: Never Assessed Comments Unknown Sex and Gender Information Value Date Recorded Sex Assigned at Not on file Legal Sex Female 6:40 PM CDT Gender Identity Not on file Sexual Orientation Not on file documented as of this encounter Miscellaneous Notes * Cerner Conversion Note - Kevin ProviderMD - 10/30/2019 5:38 PM PALLET ASSEMBLER [place] Suicide Severity Rating Scale (C-SSRS) Entered On: 10/30/2019 21:46 EST Performed On: 10/30/2019 21:43 EST by Monika Edwards RN [place] Suicide Severity Rating Scale (C-SSRS) CSSRS Past [...]
--- OUTSIDE RECORDS SUMMARY | 2025-08-22 10:45 | XMS_ITS | Encounter Summary ---
Author Organization [employer] [address] ([place], [place], [place], [place], [place]) Address [address] [facility] [place] [address] Care Team Providers Care Informatics Educator Name Role Phone Unavailable Primary Care Provider Unavailabl e Encounter Details Date Type Department Care Team (Late st Contact Info) Description 10/31/2019 Transcribed Document [facility] [place] Family Medicine [address] [place] [address] ProviderKevin MD [address] [place] [address] Social History Tobacco Use Types [...] Kevin Orr MD - 10/31/2019 12:11 AM LITERACY SPECIALIST [facility] [place], [place] [id number] ERASTO PAGAN :1965 Visit Time:10/30/2019 Your Visit [...] with any acute worsening symptoms. Where: [address] [place] [address]- Business (1) Follow Up with Patient Resource [...] range between ( 0.0 and 7.0 ) Woods #: 0.74 K/uL -- Normal range between ( 0.16 and 1.00 ) Eos #: 0.46 x10(3)/uL -- Normal range between ( 0.00 and 0.80 ) Woods %: 6.5 % -- Normal range between [...] ) Urine Bilirubin Dipstick: Negative Urine Specific [place]field: 1.006 -- Normal range between ( 1.005 and 1.030 ) Urine Type.: [facility] General Chemistry 10/30/2019 8:28 PM [...] Follow these instructions at home: ??? Take dctz-dcj-vzuepae and prescription medicines only as told by [...] 06/19/2010 Document Revised: 09/20/2017 Document Reviewed: 09/20/2017 VM Discovery Interactive Patient Education ?? 2019 VM Discovery Inc. Vertigo Vertigo is the feeling that [...] in ear, nose, and throat (ENT) problems (hairmasters manager) or a provider who specializes in disorders [...] safe for you. General instructions ??? Take gjzf-uyi-rwpspvp and prescription medicines only as told by [...] 12/15/2015 Elsevier Interactive Patient Education ?? 2019 ElseCoupons.com Inc. Migraine Headache A migraine headache is [...] these instructions at home: Medicines ??? Take eygx-tfz-plljsdm and prescription medicines only as told by your health care provider. ??? Do not drive or use heavy machinery while taking prescription pain medicine. ??? To prevent or treat constipation while you are taking prescription pain medicine, your health care provider may recommend that you: ? Drink enough fluid to keep your urine clear or pale yellow. ? Take zvth-mdv-yojgxbw or prescription medicines. ? Eat foods that [...] 08/22/2006 Document Revised: 03/11/2017 Document Reviewed: 02/07/2017 VM Discovery Interactive Patient Education ?? 2019 VM Discovery Inc. Dizziness Dizziness is a common problem. [...] is fine. ??? If you need to watch parts inspector one place for a long time, move [...] your dizziness for any changes. ??? Take avxg-mdj-hxkgvny and prescription medicines only as told by [...] 02/15/2002 Document Revised: 09/24/2017 Document Reviewed: 09/24/2017 VM Discovery Interactive Patient Education ?? 2019 edPULSE. Emergency Awareness and Preventative Care STROKE is [...] Assistance with quitting is available by contacting 0-757-BDWPMakerCraftNOW. This is a free resource providing counseling, support, and referral. Or you may contact your personal physician. [employer] Suicide Prevention Lifeline: The National Suicide Prevention [...] radiology, or pathology physicians. Patient Name:ERASTO PAGAN I have received this information and was given the opportunity to ask questions. Patient/Cnc Router Operator Name: Patient/Cnc Router Operator Signature: Relationship to Patient: Clinician/Hospital Cnc Router Operator Signature: Please Provide a Telephone Number Where You Can Be Reached: Is it Permissible To Leave a Message? Date: Electronically signed by Zoraida Johnson Conversion Supervisor Vine Fruit Farming Mara at 12/24/2022 10:22 AM CDT documented in this encounter Plan of Treatment Not on file documented as of this encounter Visit Diagnoses Not on filedocumented in this encounter
--- OUTSIDE RECORDS SUMMARY | 2025-08-22 10:45 | XMS_ITS | Encounter Summary ---
Author Organization [employer] ([place], [place], [place], [place], [place]) Address [address] [place] [address] Care Team Providers Care Senior Abap Developer Name Role Phone Unavailable Primary Care Provider Unavailabl e Encounter Details Date Type Department Care Team (Late st Contact Info) Description 10/30/2019 Transcribed Document [facility] [place] Family Medicine [address] [place] [address] ProviderKevin MD [address] [place] [address] Social History Tobacco Use Types Packs/Day Years Used Date Smoking Tobacco: Never Assessed Comments Unknown Sex and Gender Information Value Date Recorded Sex Assigned at Not on file Legal Sex Female 6:40 PM CDT Gender Identity Not on file Sexual Orientation Not on file documented as of this encounter Miscellaneous Notes * Cerner Conversion Note - Kevin Orr MD - 10/30/2019 8:40 PM DUST MILL OPERATOR Patient: ERASTO PAGAN Age: 54 years Sex: [...] , vision changes since . Seen at [facility] c labs/CT/CXR - dx c anxiety/UDS [...] bending over. She was seen in the [facility] emergency room where they did a [...] EST Height Source Stated Height Entry Format [place] Height/Length, BHUTANESE (ft) 5 ft Height/Length BHUTANESE 6 Inch CLINICALHEIGHT 167.64 cm [place] Body Weight 58.88 kg Weight Source, ED Critical estimated dosing weight Weight Entry Format [place] Weight [place] lb 250 lb CLINICALWEIGHT 113.64 kg Body [...] had a negative CT of the head [facility] will proceed with CTA of the [...] Triage: ED C-SSRS: ED Clinical Reconciliation: ED customer account manager: Extra Blue Tube: Normal Saline Flush: 10 [...] needed for dizziness, 30 Tab, 0 Refill(s). secured entrance monitor: Normal sinus rhythm. Electrocardiogram: Time 10/30/2019 18:11:00, rate 71, normal sinus rhythm, No ST changes, no ectopy, normal NM & QRS intervals, EP Interp. Results review: Lab results : Lab Results 10/30/2019 21:56 EST Urine Type. U CleanCatch Urine Color Yellow Urine Appearance Clear Urine Specific Clio 1.006 Urine pH Dipstick 6.5 Urine Leukocyte [...] % 28.8 % Lymph # 3.26 x10(3)/uL Humphreys % 6.5 % Humphreys # 0.74 K/uL Eos % 4.1 % Eos # 0.46 x10(3)/uL Baso % 0.8 % Baso # 0.09 x10(3)/uL Slide Review No IG# 0.05 x10(3)/uL IG% 0.40 % 10/30/2019 20:19 EST PT 10.6 Second(s) INR 1.0 D Dimer Quant see comment mg/L FEU . Radiology results: Radiology Results (Last 48 hours) [id number] -- 10/30/2019 17:38 CR Chest 2 Vws [...] 0:08 EST, Discharge to: Home. Prescriptions: Prescription Director Of Retail Analytics Pharmacy: meclizine 25 mg oral tablet (Prescribe): [...]
--- OUTSIDE RECORDS SUMMARY | 2025-08-22 10:45 | XMS_ITS | Encounter Summary ---
Author Organization [employer] ([place], [place], [place], [place], [place]) Address [address] [place] [address] Care Team Providers Care Belt Puncher Name Role Phone Unavailable Primary Care Provider Unavailabl e Encounter Details Date Type Department Care Team (Late st Contact Info) Description 10/30/2019 Transcribed Document [facility] [place] Family Medicine [address] [place] [address] ProviderKevin MD [address] [place] [id number] Social History Tobacco Use Types Packs/Day Years Used Date Smoking Tobacco: Never Assessed Comments Unknown Sex and Gender Information Value Date Recorded Sex Assigned at Not on file Legal Sex Female 6:40 PM CDT Gender Identity Not on file Sexual Orientation Not on file documented as of this encounter Miscellaneous Notes * Cerner Conversion Note - Kevin Orr MD - 10/30/2019 5:38 PM NATURALIZATION EXAMINER ED Triage Entered On: 10/30/2019 18:19 EST Performed On: 10/30/2019 18:12 EST by Nancy Lanier RN ED Triage Across the Room Chief Complaint : Pt c/o dizziness, crawling sensation, L eye twitching , vision changes since . Seen at [facility] c labs/CT/CXR - dx c anxiety/UDS + for fentanyl. Pt thinks UDS r/t excess benadryl. PCP told to come for poss blood clot. Stopped doxepin. Triage Date/Time : 10/30/2019 18:12 EST Nancy Lanier RN - 10/30/2019 18:12 EST DCP GENERIC CODE Tracking Acuity : 3 - Urgent Tracking Group : [facility] ED Nancy Lanier RN - 10/30/2019 18:12 [...] PNED ; Probability: 0 ; Diagnosis Code: [id number] ED Height and Weight Height Source : Stated Height Entry Format : [place] Height, Feet : 5 ft(Converted to: 152 cm, 60 Inch) Height, Inches : 6 Inch(Converted to: 0 ft 6 Inch, 15.24 cm) Clinical Height : 167.64 cm Weight Source, ED : Critical estimated dosing weight Weight Entry Format : [place] Weight, Pounds : 250 lb Clinical Dosing Weight : 113.64 kg Body Surface Area (BSA) : 2.2 m2 Body Mass Index : 40.4 kg/m2 (>HHI) Aubrey Body Weight (IBW) : 58.88 kg Nancy Lanier RN - 10/30/2019 18:12 EST Pain Assessment Pain Assessment : Initial assessment Pain Scale Used : 0-10 Scale Nancy Laneir RN - 10/30/2019 18:12 EST Pain Scale [...]
--- OUTSIDE RECORDS SUMMARY | 2025-08-22 10:45 | XMS_ITS | Encounter Summary ---
Author Organization [employer] ([place], [place], [place], [place], [place]) Address [address] [place] [address] Care Team Providers Care Masonry Contractor Name Role Phone Unavailable Primary Care Provider Unavailabl e Encounter Details Date Type Department Care Team (Late st Contact Info) Description 10/31/2019 Transcribed Document [facility] [place] Family Medicine [address] [place] [address] ProviderKevin MD [address] [place], [place] [id number] Social History Tobacco Use Types Packs/Day Years Used Date Smoking Tobacco: Never Assessed Comments Unknown Sex and Gender Information Value Date Recorded Sex Assigned at Not on file Legal Sex Female 6:40 PM CDT Gender Identity Not on file Sexual Orientation Not on file documented as of this encounter Miscellaneous Notes * Cerner Conversion Note - Kevin Orr MD - 10/31/2019 12:47 AM FURNITURE PACKER ED Discharge Entered On: 10/31/2019 0:47 EST [...] 10/31/2019 0:47 EST Electronically signed by Alex [facility] Conversion Exercise Instructor Cerner at 12/24/2022 10:40 AM CDT documented in this encounter Plan of Treatment Not on file documented as of this encounter Visit Diagnoses Not on filedocumented in this encounter
--- OUTSIDE RECORDS SUMMARY | 2025-08-22 10:45 | XMS_ITS | Encounter Summary ---
Author Organization [employer] ([place], [place], [place], [place], [place]) Address [address] [place] [address] Care Team Providers Care Reed Fixer Name Role Phone Unavailable Primary Care Provider Unavailabl e Encounter Details Date Type Department Care Team (Late st Contact Info) Description 10/30/2019 Transcribed Document [facility] [place] Family Medicine [address] [place] [address] ProviderKevin MD [address] [place], [place] [id number] Social History Tobacco Use Types Packs/Day Years Used Date Smoking Tobacco: Never Assessed Comments Unknown Sex and Gender Information Value Date Recorded Sex Assigned at Not on file Legal Sex Female 6:40 PM CDT Gender Identity Not on file Sexual Orientation Not on file documented as of this encounter Miscellaneous Notes * Cerner Conversion Note - Kevin Orr MD - 10/30/2019 5:38 PM WHEELCHAIR DRIVER ED Assessment Entered On: 10/30/2019 21:46 EST Performed On: 10/30/2019 21:43 EST by Monika Edwards RN ED Quick Look Assessment Level of Consciousness : Alert, Awake Affect/Behavior : Appropriate, Calm, Cooperative Orientation : Oriented x 4 Monika Edwards RN - 10/30/2019 21:43 EST ED General-Functional Assess Information Obtained From : Patient, Care provider Communication Barrier : None Primary Language : Mohawk Any Spiritual/Cultural Needs or Requests : No [...]
--- OUTSIDE RECORDS SUMMARY | 2025-08-22 10:45 | XMS_ITS | Clinical Summary ---
Author Organization [facility] Address [address] [place] [address] Care Team Providers Care Senior Construction Project Manager Name Role Phone Amanda Morris Primary Care Provider [phone] Allergies Active Allergy Reactions Criticality Noted Date [...] 25 MG capsule 0 Active HYDROcodone-acetam inophen (Escalante) 7.5-325 MG tablet 4 Active hydrOXYzine pamoate (Vistaril) 25 MG capsule 0 Active ibuprofen 800 MG tablet 3 Active Lantus SoloStar 100 UNIT/ML injection pen 3 Active Droplet Pen [place] 32G X 4 MM misc 3 Active [...] Kidney stones 09/23/2023 Post-menopausal atrophic vaginitis 09/23/2023 Urinary frequency 09/23/2023 Urinary urgency 09/23/2023 Anemia, iron deficiency 09/22/2023 Diabetes mellitus 09/22/2023 Hypothyroid 09/22/2023 Skin lesion 09/22/2023 Vulvar irritation 04/11/2020 Fecal incontinence 02/10/2020 Lichen sclerosus of female genitalia 02/10/2020 Stress incontinence 02/10/2020 Urge incontinence 02/10/2020 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 Tongue ulceration 08/08/2018 Back pain 10/17/2017 DDD (degenerative disc disease), cervical 2017 DDD (degenerative disc disease), lumbar 10/17/19 18 Kyphosis 10/17/2017 Neck pain 10/17/2017 Sacroiliac joint dysfunction of right side 10/17 Resolved Problems Problem Noted Date Diagnosed Date Resolved Date Nocturia 09/23/2023 05/26/2025 Hoarseness, chronic 08/08/2018 05/26/20 25 Family History Medical History Relation Name Comments Conversions - Other Mother cancer o f vulva Relation Name Status Comments Mother Social History Tobacco Use Types Packs/Day Years Used Date Smoking Tobacco: Every Day Cigarettes 1 2 Started: 2023; Last attempted to quit: 2022 [...] Screening 1965 [facility]-Medicare Annual Wellness (AWV) 1964 [facility]-/Child/Adol SDOH Screenings 1964 Diabetes: Dental Exam 1974 [facility]- SDOH Screenings 1982 [facility]-Adult SDOH Screenings 1982 [facility]-DTaP,Tdap,and Td Vaccines (1 - Tdap) 1983 CT Colonography 2009 Colonoscopy 2009 FIT-DNA 2009 FIT 2009 FOBT 2009 Sigmoidoscopy 2009 [facility]-Colorectal Cancer Screening 2009 [facility]-Breast Cancer Screening 2014 [facility]-RSV Vaccine: 60+ Years or (1 - Risk 50-74 years 1-dose series) 2014 [facility]-Zoster Vaccines (1 of 2) 2014 [facility]-Pneumococcal Vaccine: 50+ Years (2 of 2 - PPSV23, PCV20, or PCV21) 08/24/2016 06/29/2016 [id number] Vaccine (2 - Earnest risk series) 05/14/2021 04/16/2021 [facility]-Diabetes: Hemoglobin A1C 02/03/2025 08/06/2024 [facility]-Influenza Vaccine (#1) 05/06/202509/15, 06/14/2022, 07/06/2017, Additional history exists [facility]-Depression Screening 08/06/2025 08/06/2024 [facility]-Obesity Intervention Completed 08/06/2024, 09/05 HPV Vaccines (No Doses Required) Completed [facility]-HIB Vaccines Aged Out No longer e [...] 5.9(H) <5.7 % 08/06/2024 8:23 AM EST [facility] Blood Venous blood specimen / Unknown Venipuncture / Unknown 08/06/2024 7:32 AM EST 08/06/2024 7:32 AM EST Narrative [facility] - 08/06/2024 8:23 AM EST HA1C Interpretive Data: Diagnosis of Diabetes: Diabetic > or = 6.5% Pre-diabetic 5.7 to 6.4% Non-diabetic < or = 5.6% Glycemic Targets for Type I and Type II Diabetics: Non- Adults <7.0% Adults <6.0% Children and Adolescents <7.5% Source: [place] Diabetes Association. Standards of medical care in diabetes,2017. Diabetes Care.2017:40 (suppl 1):S1-S135. HbA1c assay performed by an ion-exchange chromatography method that is certified traceable to the DCCT. Kath Arteaga APRN, [facility] BLOOD ORDERABLES Fin al Result [facility] [address] [place] [address] from Last 3 Months or Most Recently Relevant to Health Maintenance Insurance MEDICARE Care Teams Senior Construction Project Manager Relationship Specialty Start Date End Date Amanda Morris PA [address] [place] [address] [facility] - General 01/16/21
--- OUTSIDE RECORDS SUMMARY | 2025-08-22 10:45 | XMS_ITS | Encounter Summary ---
Author Organization [employer] ([place], [place], [place], [place], [place]) Address [address] [place] [place] [address] Care Team Providers Care Nurse Plastics Name Role Phone Unavailable Primary Care Provider Unavailabl e Encounter Details Date Type Department Care Team (Late st Contact Info) Description 10/31/2019 Transcribed Document [facility] Family Medicine [address] [place] [address] ProviderKevin MD [address] [place], [place] [id number] Social History Tobacco Use Types Packs/Day Years Used Date Smoking Tobacco: Never Assessed Comments Unknown Sex and Gender Information Value Date Recorded Sex Assigned at Not on file Legal Sex Female 6:40 PM CDT Gender Identity Not on file Sexual Orientation Not on file documented as of this encounter Miscellaneous Notes * Cerner Conversion Note - Historical ProviderMD - 10/31/2019 10:47 AM VOLUNTEER FIRE FIGHTER CR Chest 2 Vws Ordered: 10/30/2019 Auth (Verified) Reason for Exam: dizziness/near syncope 10/30/2019 20:30 10/31/2019 10:47 (ANDRZEJ NG) No further action required Electronically signed by Zoraida Johnson Conversion Patient Registration Supervisor Cerner at 12/24/2022 10:18 AM CDT documented in this encounter Plan of Treatment Not on file documented as of this encounter Visit Diagnoses Not on filedocumented in this encounter
--- OUTSIDE RECORDS SUMMARY | 2025-08-22 10:46 | XMS_ITS | Clinical Summary ---
Author Organization [facility] y[facility] Address [address] [place] [address] Care Team Providers Care Entry Level Management Name Role Phone Unavailable Primary Care Provider Unavailabl e Social History Tobacco Use Types Packs/Day Years Used Date Smoking Tobacco: Never Assessed Abuse Screen Answer Date Recorded Unsafe at Home or Work/School Not on file Feels Threatened by Someone? Not on file 05/2023 Does Anyone Keep You from Co ntacting Others or Doint Things Outside the Home? Not on file 06/13/2023 Physical Sign of Abuse Present Not on file 1 Housing Stability Answer Date Recorded Current Living Arrangements Not on file 05/2023 Potentially Unsafe Housing Conditions Not on layton e 06/13/2023 Family and Community Support Answer Rafa e Recorded Help with Day-to-Day Activities Not on file 06/13/2023 Lonely or Isolated Not on file 06/13/2023 Employment Answer Date Recorded Do you want help finding or keeping work or a chandler b? Not on file 06/13/2023 Disabilities Answer Date Recorded Concentrating, Remembering, or Making Decisions Difficulty Not on file 06/13/2023 Doing Errands Independently Difficulty Not on fi le 06/13/2023 Education Answer Date Recorded Help with school or training? Not on file Preferred Language Not on file 06/13/2023 Comments Unknown Sex and Gender Information Value Date Recorded Sex Assigned at Not on file Legal Sex Female 10:11 AM EDT Gender Identity Not on file Sexual Orientation Not on file Plan of Treatment Health Maintenance Due Date Last Done Comments ANNUAL PHYSICAL 1965 Annual Gynecologic Pelvic and Breast Exam 1965 HEPATITIS C SCREENING 1964 TDAP/TD VACCINES (1 - Tdap) 1983 MAMMOGRAM 2004 COLOGUARD 2009 COLON CANCER SCREENING 5 YEAR SIGMOIDOSCOPY 2009 COLONOSCOPY [address] CANCER SCREENING [address] COLONOGRAPHY 2009 FECAL OCCULT BLOOD TEST 2009 FIT Testing (1 year) 2009 Pneumococcal Vaccine 50+ (1 of 1 - PCV) 2014 ZOSTER VACCINE (1 of 2) 2014 INFLUENZA VACCINE 04/05/2025 Insurance [id number] [id number] MEDICARE A & B
--- OUTSIDE RECORDS SUMMARY | 2025-08-22 10:46 | XMS_ITS | Referral Summary ---
Author Organization [employer] ([place], [place], [place], [place], [place]) Address [address] [place] [address] Care Team Providers Care Card Grader Name Role Phone Unavailable Primary Care Provider [...]
--- OUTSIDE RECORDS SUMMARY | 2025-08-22 10:46 | XMS_ITS | Encounter Summary ---
Author Organization [facility] Address [address] [place] [address] Care Team Providers Care Discharge Specialist Name Role Phone Amanda Morris Primary Care Provider [phone] Encounter Details Date Type Department Care Team (Late st Contact Info) Description 02/15/2023 Orders Only External Location [address] [place] [address] Shayy Villegas, JOWL TRIMMER [address] [facility] Ed [address] [place], [place] [id number] Social History Tobacco Use Types Packs/Day Years [...] on filedocumented in this encounter Care Teams Discharge Specialist Relationship Specialty Start Date End Date Amnada Morris PA [address] [place] [address] PCP - General 01/16/21 documented as of this encounter
== END 2025-08-21 23:59 | disposition home or self-care (01) ==
LOC: LAB.DROPOF 08-22 10:13
PROVIDERS: PCP Family Medicine; Visit Provider Nurse Practitioner Family
DX: E11.9 Type 2 diabetes mellitus without complications (principal)
CPT/HCPCS: 82043; 82570